=== PATIENT | male | born 1960 | race Caucasian/White ===

== ENCOUNTER → 2020-11-12 13:07 | Outpatient (BNVA) | payer BC, SELFPAY | PROVIDERS: PCP Nurse Practitioner Family; Referring Provider Nurse Practitioner Family; Visit Provider Urology | DX: Z76.89 Persons encountering health services in other specified circumstances (principal) ==

== ENCOUNTER 2020-11-13 09:05 | Outpatient (REF) | payer BC, SELFPAY ==
[2020-11-13 11:31] LABS: Estimated Average Glucose 123 mg/dL; Hemoglobin A1c % 5.9 %
[2020-11-13 11:53] LABS: Alanine Aminotransferase 40 U/L (0-40); Albumin Level 4.9 g/dL (3.5-5.0); Alkaline Phosphatase 72 U/L (39-117); Anion Gap 13 (12-20); Aspartate Amino Transferase 20 U/L (5-37); Bilirubin Total 0.9 mg/dL (0.0-1.0); Blood Urea Nitrogen 15 mg/dL (9-16); Calcium 9.1 mg/dL (8.4-10.2); Carbon Dioxide 28 mmol/L (22-29); Chloride 102 mmol/L (96-108); Cholesterol 154 mg/dL; Estimated Glomerular Filt Rate > 60; Glucose Fasting 122 mg/dL (60-99); HDL Cholesterol 50 mg/dL; LDL Cholesterol Calculated 80 mg/dl; Sodium 139 mmol/L (135-145); Total Protein 7.2 g/dL (6.5-8.0); Triglycerides 123 mg/dL
[2020-11-13 12:18] LABS: Prostate Specific Antigen Scr 0.45 ng/mL (<0.05-4.0); TSH reflex Free T4 1.22 mIU/mL (0.32-4.0)
[2020-11-13 13:04] LABS: Creatinine Urine 87.48 mg/dL; Microalbum/Creatinine Ratio Ur 27.4 ug/mg cr
== END 2020-11-13 09:06 | disposition home or self-care (01) ==
LOC: HO.HMGCLDS 09:05
PROVIDERS: PCP Nurse Practitioner Family; Visit Provider Nurse Practitioner Family
DX: E11.9 Type 2 diabetes mellitus without complications (principal); Z12.5 Encounter for screening for malignant neoplasm of prostate
CPT/HCPCS: 36415; 80053; 80061; 82043; 83036; 84153; 84443

== ENCOUNTER 2020-11-27 14:28 | Outpatient (REF) | payer BC, SELFPAY ==
[2020-11-27 15:17] LABS: Glucose Urine UA NEG (NEG); Leukocyte Esterase Urine NEG (NEG); Nitrite Urine NEG (NEG); Specific Gravity - Urine >= 1.030 (1.005-1.025); Urine Blood 3+ (NEG); Urine Ketones NEG (NEG); Urine Protein 2+ MG/DL (NEG-TRACE)
[2020-11-27 15:30] LABS: Amorphous Sediment Urine 3+ /LPF; Bacteria Urine TRACE /LPF; Mucus Urine TRACE /LPF; RBC Urine TNTC /HPF (0); Squamous Epithelial Cell Urine TRACE /LPF; WBC Urine 0-2 /HPF (0-4)
[2020-11-27 15:31] LABS: Appearance Urine TURBID; Color Urine BROWN
== END 2020-11-27 14:29 | disposition home or self-care (01) ==
LOC: HO.LAB 14:28
PROVIDERS: PCP Nurse Practitioner Family; Visit Provider Urology
DX: N20.0 Calculus of kidney (principal)
CPT/HCPCS: 81001; 87086

== ENCOUNTER 2020-12-02 13:59 | Outpatient (REF) | payer BC, SELFPAY ==
--- NOTE | 2020-12-02 14:05 | XR_ITS ---
EXAMINATION: XR ABDOMEN KUB CLINICAL INDICATION: Left-sided flank pain COMPARISON: Previous CT of the abdomen and pelvis December 2017 TECHNIQUE: AP view of the abdomen. FINDINGS: There is a 5 mm density projecting over the lower pole of the left kidney questionable for a stone. There is a 6 x 8 mm density projecting to the left of the spine at the level of the L3 transverse process on one view and the level of the S3 vertebral body on the other view questionable for a left ureteral stone. No right-sided stone is seen. Bowel gas pattern is normal. There are mild degenerative changes of the spine and left hip joint. XR/XR KUB IMPRESSION: Question left renal and left ureteral stones.
== END 2020-12-02 14:00 | disposition home or self-care (01) ==
LOC: HO.XRAY 13:59
PROVIDERS: PCP Nurse Practitioner Family; Visit Provider Urology
DX: N23 Unspecified renal colic (principal)
CPT/HCPCS: 74018

== ENCOUNTER → 2020-12-06 13:28 | Outpatient (BNVA) | payer BC, SELFPAY | PROVIDERS: PCP Nurse Practitioner Family; Visit Provider Urology ==

== ENCOUNTER 2020-12-18 07:52 | Day surgery (SDC) | payer BC, SELFPAY ==
[2020-12-12 10:42] VITALS: BMI 26.6
--- NOTE | 2020-12-17 12:23 | HO.ANESPROP2 ---
Documented by User: Niki Irene 12/17/20 12:26 HPI - Anesthesia Eval Consult details Narrative: 60yo M for L ESWL PMFSH Active Problems Active Problems: All Active Problems (Updated 11/12/20 @ 13:51 by Raimundo Goodwin MD) Diabetes (Acute) Screening PSA (prostate specific antigen) (Acute) HTN (hypertension) (Acute) Nephrolithiasis (Acute) Peyronie's disease (Acute) Erectile dysfunction (Acute) Past Medical History Medical History Constipation Diabetes Dupuytren contracture Dyslipidemia Kidney stones Family History Family History Father HTN (hypertension) CVD (cardiovascular disease) Mother HTN (hypertension) Diabetes mellitus Paternal Grandmother Diabetes mellitus Brother No problems noted. Sister No problems noted. Sister No problems noted. Son No problems noted. Daughter No problems noted. Daughter No problems noted. Surgical History Surgical History H/O colonoscopy History of facial surgery Social History Social History Smoking Status: Unknown if ever smoked Advance Directives: Yes Advance Directives Information Provided: No Advance Directives on File: Yes Advance Directives Date on File: 12/18/20 Meds Allergies Allergy/AdvReac Type Severity Reaction Status Date / Time Penicillins Allergy Unknown Unknown Verified 12/18/20 08:52 Home Medications Medication Instructions Recorded Confirmed Last Taken Type blood sugar diagnostic #10 ea 11/11/20 11/11/20 Unknown History lancets #100 ea 11/11/20 11/11/20 Unknown History dulaglutide 1.5 mg/0.5 mL 1.5 mg SUBCUT QWEEK 11/12/20 Unknown History subcutaneous pen injector Exam Exam Date and Time: December 17, 2020 1223 Height,Weight and Vital Signs: Height 6 ft 2 in Weight 94.347 kg Pertinent Lab Results Pertinent Lab Results: Laboratory Tests 11/13/20 09:14 Sodium 139 Potassium 4.0 Chloride 102 Carbon Dioxide 28 BUN 15 Creatinine 1.02 Assessment and Plan Assessment Anesthesia Assessment: Chart Reviewed Documented by User: Shirin Theodore 12/18/20 10:34 PMFSH Past Medical History Medical History Constipation Diabetes Dupuytren contracture Dyslipidemia Kidney stones Family History Family History Father HTN (hypertension) CVD (cardiovascular disease) Mother HTN (hypertension) Diabetes mellitus Paternal Grandmother Diabetes mellitus Brother No problems noted. Sister No problems noted. Sister No problems noted. Son No problems noted. Daughter No problems noted. Daughter No problems noted. Surgical History Surgical History H/O colonoscopy History of facial surgery Social History Social History Smoking Status: Unknown if ever smoked Advance Directives: Yes Advance Directives Information Provided: No Advance Directives on File: Yes Advance Directives Date on File: 12/18/20 Meds Allergies Allergy/AdvReac Type Severity Reaction Status Date / Time Penicillins Allergy Unknown Unknown Verified 12/18/20 08:52 Home Medications Medication Instructions Recorded Confirmed Last Taken Type blood sugar diagnostic #10 ea 11/11/20 11/11/20 Unknown History lancets #100 ea 11/11/20 11/11/20 Unknown History dulaglutide 1.5 mg/0.5 mL 1.5 mg SUBCUT QWEEK 11/12/20 Unknown History subcutaneous pen injector Exam Airway Mallampati Class: II TM Dist: >3cm Neck ROM: Full Assessment and Plan Assessment Anesthesia Assessment: Anesthesia Plan Discussed and Chart Reviewed Final Anesthetic Review ASA Class: II Final Preanesthetic Review: No Changes in Pt Med Stat, Meds/Allgs Chart Reviewed, Consent Obtained/Reviewed and Anes Risks/Benef Reviewed Patient Risk: Low Procedure Risk: Low Assessment/Block/Sedation in SS: Assess/Block/Sedation-SS Anesthetic Plan Anesthetic Plan: MAC: Disposition: Standard PACU
--- NOTE | ~2020-12-18 | XR_ITS ---
EXAMINATION: XR ABDOMEN KUB CLINICAL INDICATION: Renal stones COMPARISON: Previous KUB 12/02/[address] of the abdomen and pelvis December 2017 TECHNIQUE: AP view of the abdomen. FINDINGS: There is a 5 mm density projecting over the mid pole the left kidney questionable for a stone. There is a 6 x 8 mm radiopaque density projecting between the L2 and L3 transverse processes questionable for a ureteral stone. There is a third new calcification in the left pelvis just superior to the left ischiorectal spine measuring 5 x 10 mm questionable for a left distal ureteral stone. No right-sided stone is seen. Bowel gas pattern is normal. Bony structures are normal. XR/XR KUB IMPRESSION: Question left renal and ureteral stones.
[2020-12-18 09:02] VITALS: BP 136/84; PULSE 84; RESP 15; TEMP 36.5; O2SAT 98
[2020-12-18] MEDS: Lactated Ringers 1,000 ML 100 ML IVCONT (09:12)
[2020-12-18 09:17] LABS: Glucose, Whole Blood 129 mg/dL (60-115)
--- NOTE | 2020-12-18 10:22 | MHC.SHP ---
Pre-Procedural Eval Section A The patient is an INPATIENT: No Changes since office visit: No Cold of Flu in the past 2 weeks, No New Medical Problems, No Changes in Medication and No Patient answered all questions The History & Physical has been completed within 30 days and I have reviewed it.: Yes Section B Chief Complaint: kidney stone Allergies: Allergies Allergy/AdvReac Type Severity Reaction Status Date / Time Penicillins Allergy Unknown Unknown Verified 12/18/20 08:52 Plan Diagnosis/Plan: Unchanged I have reviewed the history and physical and performed a pertinent physical examination on my patient. No changes have occurred unless specified. Left ESWL 8mm
--- NOTE | 2020-12-18 10:32 | PM.OP ---
Brief Operative Note Date of Service: 12/18/20 Pre-op diagnosis: left 8mm stone renal Post-op diagnosis: same Procedure: left eswl Surgeon: Raimundo Goodwin MD Estimated blood loss (mL): 0 Pathology: none sent Condition: stable Disposition: same day
--- NOTE | 2020-12-18 10:43 | PM.OP ---
Brief Operative Note Date of Service: 12/18/20 Pre-op diagnosis: Left renal stones Post-op diagnosis: same Procedure: left ESWL Surgeon: Raimundo Goodwin MD Anesthesia: MAC Estimated blood loss (mL): 0 Pathology: none sent Condition: stable Disposition: same day
--- NOTE | 2020-12-18 10:46 | W.PM.OPN ---
Operative Note Operative Note Date of Service: 12/18/20 Narrative: PreOperative Diagnosis: left stones Post Operative Diagnosis: left Renal stones 8mm Procedure: left ESWL Surgeon: Dr Raimundo Goodwin Anesthesia: mac/sedation Indications for procedure: They understand ESWL may be a staged procedure and subsequent intervention may be required based on imaging after ESWL. They also understand there is a risk of bleeding, infection, damage to adjacent organs. Procedure: After informed consent was verified the patient was brought to the operating room and placed in a supine position. Anesthesia was performed per protocol. Safety pause time-out was performed. Imaging was in the room and laterality confirmed. ESWL was performed. The 1st 500 shocks were performed at 60 hertz. These were performed with increasing power. Once maximum power was reached the rate was increased to 180 hertz. A total of 2500 shocks were given. Fluoroscopy showed stone disintegration. They tolerated procedure well and was transferred to the recovery area upon completion.
[2020-12-18 10:55] VITALS: BP 130/78; PULSE 78; RESP 16; TEMP 36.3; O2SAT 97
[2020-12-18 11:10] VITALS: BP 124/82; PULSE 71; RESP 18; O2SAT 98
[2020-12-18] MEDS: Phenazopyridine HCL 100 MG TABLET PO (11:17)
[2020-12-18 11:25] VITALS: BP 138/84; PULSE 71; RESP 16; O2SAT 100
[2020-12-18 11:40] VITALS: BP 132/93; PULSE 77; RESP 16; O2SAT 100
[2020-12-18 11:55] VITALS: BP 169/98; PULSE 57; RESP 16; O2SAT 100
== END 2020-12-18 12:40 | disposition home or self-care (01) ==
PROVIDERS: PCP Nurse Practitioner Family; Visit Provider Urology
PROC: (CPT 50590; principal; 2020-12-18 10:20)
DX: N20.0 Calculus of kidney (principal); Z87.442 Personal history of urinary calculi; E11.9 Type 2 diabetes mellitus without complications; Z79.84 Long term (current) use of oral hypoglycemic drugs; I10 Essential (primary) hypertension; Z79.899 Other long term (current) drug therapy; Z88.0 Allergy status to penicillin
CPT/HCPCS: 50590; 74018; 82947; J1885; J2405; J3010

== ENCOUNTER 2021-01-15 14:26 | Outpatient (REF) | payer BC, SELFPAY ==
--- NOTE | ~2021-01-15 | US_ITS ---
EXAMINATION: US RETROPERITONEAL LIMITED (RENAL ONLY) CLINICAL INFORMATION: Calculus of kidney. COMPARISON: X-ray KUB 12/18/2020 and 12/02/2020. CT abdomen pelvis 12/07/2017. Ultrasound abdomen 04/08/2007. TECHNIQUE: Real-time imaging of the kidneys. FINDINGS: RIGHT KIDNEY: 12.9 x 7.0 x 5.2 cm (SAG x AP x TRV). The kidney is normal in size, contour, and echogenicity. Renal cortical thickness is normal. There is anechoic cyst upper pole measuring 2.3 x 2.1 x 2.0 cm. There is an echogenic stone in the upper pole measuring 0.6 x 0.5 x 0.8 cm adjacent to the cyst. In addition there are multiple echogenic foci seen. There is no caliectasis or hydronephrosis. LEFT KIDNEY: 12.3 x 6.2 x 6.2 cm (SAG x AP x TRV). The kidney is normal in size, contour, and echogenicity. Renal cortical thickness is normal. There are several anechoic cysts seen. Midpole cyst laterally measures 0.6 was 0.9 x 0.9 cm. In midpole peripelvic cyst measures 2.8 x 2.4 x 2.3 cm. There is an echogenic stone mid to lower pole measuring 0.5 x 0.4 x 0.5 cm. There are multiple small echogenic foci. There is no caliectasis or hydronephrosis. US/US renal BI IMPRESSION: Multiple small bilateral renal echogenic foci. Addition there are bilateral echogenic renal calculi without caliectasis or hydronephrosis. Bilateral simple renal cysts.
== END 2021-01-15 14:27 | disposition home or self-care (01) ==
LOC: HO.US 14:26
PROVIDERS: Visit Provider Urology
DX: N20.0 Calculus of kidney (principal)
CPT/HCPCS: 76775

== ENCOUNTER → 2021-01-17 13:44 | Outpatient (BNVA) | payer BC, SELFPAY | PROVIDERS: PCP Nurse Practitioner Family; Visit Provider Urology ==

== ENCOUNTER 2021-03-24 07:17 | Day surgery (SDC) | payer BC, SELFPAY ==
[2021-03-17 15:34] VITALS: BMI 25.2
--- NOTE | 2021-03-20 11:23 | HO.ANESPROP2 ---
Documented by User: Niki Irene 03/20/21 11:23 HPI - Anesthesia Eval Consult details Narrative: 60yo M for Upper Endoscopy and Colonoscopy PMF Active Problems Active Problems: All Active Problems (Updated 03/17/21 @ 15:35 by Sherice Castro) Diabetes (Acute) Screening PSA (prostate specific antigen) (Acute) HTN (hypertension) (Acute) Nephrolithiasis (Acute) Peyronie's disease (Acute) Erectile dysfunction (Acute) Past Medical History Medical History Arthritis Constipation COVID-19 vaccine series completed Diabetes Dupuytren contracture Dyslipidemia GERD (gastroesophageal reflux disease) Kidney stones Family History Family History Father HTN (hypertension) CVD (cardiovascular disease) Mother HTN (hypertension) Diabetes mellitus Paternal Grandmother Diabetes mellitus Brother No problems noted. Sister No problems noted. Sister No problems noted. Son No problems noted. Daughter No problems noted. Daughter No problems noted. Surgical History Surgical History H/O colonoscopy History of facial surgery History of lithotripsy Social History Social History Smoking Status: Never smoker Use of substances other than those prescribed or required for medical reasons: No Are you DNR?: No Advance Directives: Yes Advance Directives Information Provided: Yes Advance Directives on File: Yes Advance Directives Date on File: 12/18/20 Meds Allergies Allergy/AdvReac Type Severity Reaction Status Date / Time Penicillins Allergy Unknown Unknown Verified 03/17/21 15:32 Home Medications Medication Instructions Recorded Confirmed Last Taken Type blood sugar diagnostic #10 ea 11/11/20 02/13/21 Unknown History lancets #100 ea 11/11/20 02/13/21 Unknown History Exam Exam Date and Time: March 20, 2021 1123 Height,Weight and Vital Signs: Height 6 ft 2 in Weight 89.358 kg Assessment and Plan Assessment Anesthesia Assessment: Chart Reviewed Documented by User: Porter Anderson 03/24/21 07:59 PMFSH Past Medical History Medical History Arthritis Constipation COVID-19 vaccine series completed Diabetes Dupuytren contracture Dyslipidemia GERD (gastroesophageal reflux disease) Kidney stones Family History Family History Father HTN (hypertension) CVD (cardiovascular disease) Mother HTN (hypertension) Diabetes mellitus Paternal Grandmother Diabetes mellitus Brother No problems noted. Sister No problems noted. Sister No problems noted. Son No problems noted. Daughter No problems noted. Daughter No problems noted. Surgical History Surgical History H/O colonoscopy History of facial surgery History of lithotripsy Social History Social History Smoking Status: Never smoker Use of substances other than those prescribed or required for medical reasons: No Are you DNR?: No Advance Directives: Yes Advance Directives Information Provided: Yes Advance Directives on File: Yes Advance Directives Date on File: 12/18/20 Meds Allergies Allergy/AdvReac Type Severity Reaction Status Date / Time Penicillins Allergy Unknown Unknown Verified 03/17/21 15:32 Home Medications Medication Instructions Recorded Confirmed Last Taken Type blood sugar diagnostic #10 ea 11/11/20 02/13/21 Unknown History lancets #100 ea 11/11/20 02/13/21 Unknown History Exam Airway Mallampati Class: II TM Dist: >3cm Neck ROM: Full
[2021-03-24 07:56] VITALS: BP 142/91; PULSE 76; RESP 18; TEMP 36.2; O2SAT 98
[2021-03-24 07:58] LABS: Glucose, Whole Blood 116 mg/dL (60-115)
[2021-03-24] MEDS: Lactated Ringers 1,000 ML 100 ML IVCONT (08:13)
[2021-03-24 09:38] VITALS: BP 107/69; PULSE 65; RESP 16; TEMP 36.3; O2SAT 98
--- NOTE | 2021-03-24 09:43 | P.BOP_ITS ---
Brief Operative Note Date of Service: 03/24/21 Pre-op diagnosis: GERD, Screening Post-op diagnosis: other (Hiatal hernia, Colon polyp) Procedure: EGD with biopsy, Colonoscopy to the cecum and TI with biopsy and removal of polyp Surgeon: Eron Bragg Anesthesia: MAC Was an Asphalt Surface Heater Operator used for this Procedure?: No Estimated blood loss (mL): 3.0 Pathology: other (A. EG Junction at 35cm B. Transverse colon polyp) Condition: stable Disposition: PACU
[2021-03-24 09:53] VITALS: BP 147/85; PULSE 69; RESP 16; TEMP 36.3; O2SAT 99
--- NOTE | 2021-03-24 13:08 | OP_ITS ---
SURGEON: Eron Bragg MD INDICATIONS: The patient presents for evaluation of chronic gastroesophageal reflux, personal history of tubular adenoma of the colon, and need for colorectal cancer screening. Full consent has been obtained from him for both procedures, including risks of bleeding and perforation. PREOPERATIVE DIAGNOSIS: POSTOPERATIVE DIAGNOSIS: PROCEDURE PERFORMED: Esophagogastroduodenoscopy with biopsies, and colonoscopy to the cecum and terminal ileum with biopsy and removal of polyp. ESTIMATED BLOOD LOSS: COMPLICATIONS: ANESTHESIA: Monitored anesthesia care. ASSISTANTS: SPECIMENS: PREOPERATIVE DIAGNOSES: Gastroesophageal reflux, personal history of tubular adenoma of the colon, and colorectal cancer screening. POSTOPERATIVE DIAGNOSES: Gastroesophageal reflux, personal history of tubular adenoma of the colon, and colorectal cancer screening, small hiatal hernia, small colon polyp, diverticulosis and internal hemorrhoids. DESCRIPTION OF PROCEDURE: The patient was placed in the left lateral decubitus position. The Olympus video gastroscope was passed in the posterior oropharynx and upper esophagus under direct vision. The scope was passed slowly into the distal esophagus. The gastroesophageal junction appeared at 35 cm. There was some very minimal irregularity consistent with reflux, but no evidence of any esophagitis nor Hernández's esophagus. The scope entered into the stomach. There was a small hiatal hernia. The scope was advanced to pylorus and the duodenum was cannulated to the descending portion. The duodenum including the bulb appeared normal without mass or ulceration. Scope was withdrawn back in the stomach. The gastric antrum and body appeared normal with good peristalsis. The scope was retroflexed visualizing the proximal stomach carefully, which appeared normal, without any sign of mass or ulceration. The scope was straightened out and withdrawn back into the esophagus. Biopsies were obtained at the EG junction at 35 cm. Proximal to this, the esophageal mucosa appeared normal. The scope was withdrawn from the patient. He was turned around for colonoscopy. The digital rectal exam revealed no abnormalities. The Olympus video pediatric colonoscope was entered into the rectum and advanced easily to the cecum. Once in the cecum, I did identify normal-appearing cecal pouch with appendiceal orifice and a normal-appearing ileocecal valve. The terminal ileum was cannulated and appeared normal. Scope was withdrawn back in the colon. The entire cecum and ileocecal valve appeared normal. The scope was slowly withdrawn assessing all mucosal surfaces carefully. Preparation was excellent. In the transverse colon, was a flat approximately 3 or 4 mm polyp, which was biopsied and completely removed with cold biopsy forceps. I did not visualize any other polyps, colitis, nor angiodysplasia. There was a mild amount of sigmoid diverticulosis. In the rectum, scope was retroflexed visualizing small internal hemorrhoids, but no other pathology. The rectal mucosa appeared normal. Scope was straightened out and withdrawn from the patient. He tolerated the procedure well and was returned to the recovery area in stable condition. IMPRESSION: 1. Small hiatal hernia, gastroesophageal reflux. 2. Small colon polyp, status post biopsy and removal. 3. Mild diverticulosis. 4. Internal hemorrhoids. PLAN: The results of the biopsy will be checked. I would recommend a repeat colonoscopy in 5 years for further screening purposes. He was advised to continue to use Prevacid on a p.r.n. basis. He will otherwise see me on a p.r.n. basis. Of note, he was advised to continue some bowel regimen with fiber supplements and/or stool softeners as needed. MD UZAIR Mayer/CHANDNI / [id number]
== END 2021-03-24 10:28 | disposition home or self-care (01) ==
PROVIDERS: PCP Nurse Practitioner Family; Visit Provider Internal Medicine
PROC: (CPT 45380; principal; 2021-03-24 08:20)
DX: Z12.11 Encounter for screening for malignant neoplasm of colon (principal); Z86.010 Personal history of colon polyps; D12.3 Benign neoplasm of transverse colon; K57.30 Diverticulosis of large intestine without perforation or abscess without bleeding; K64.8 Other hemorrhoids; K59.00 Constipation, unspecified; K21.9 Gastro-esophageal reflux disease without esophagitis; K44.9 Diaphragmatic hernia without obstruction or gangrene; E11.9 Type 2 diabetes mellitus without complications; Z79.84 Long term (current) use of oral hypoglycemic drugs; Z79.899 Other long term (current) drug therapy; Z88.0 Allergy status to penicillin
CPT/HCPCS: 45380; 43239; 82947; 88305; J3010

== ENCOUNTER → 2021-04-09 07:58 | Outpatient (BNVA) | payer BC, SELFPAY | PROVIDERS: PCP Nurse Practitioner Family; Visit Provider Orthopaedic Surgery ==

== ENCOUNTER 2021-05-13 08:11 | Outpatient (REF) | payer BC, SELFPAY ==
[2021-05-13 09:25] LABS: Estimated Average Glucose 120 mg/dL; Hemoglobin A1c % 5.8 %
[2021-05-13 09:28] LABS: Alanine Aminotransferase 26 U/L (0-40); Albumin Level 4.4 g/dL (3.5-5.0); Alkaline Phosphatase 59 U/L (39-117); Anion Gap 12 (12-20); Aspartate Amino Transferase 18 U/L (5-37); Blood Urea Nitrogen 20 mg/dL (9-16); Calcium 9.2 mg/dL (8.4-10.2); Carbon Dioxide 27 mmol/L (22-29); Chloride 105 mmol/L (96-108); Cholesterol 134 mg/dL; Estimated Glomerular Filt Rate 59; Glucose Fasting 120 mg/dL (60-99); HDL Cholesterol 42 mg/dL; LDL Cholesterol Calculated 74 mg/dl; Potassium 4.5 mmol/L (3.3-5.1); Sodium 139 mmol/L (135-145); Total Protein 6.7 g/dL (6.5-8.0); Triglycerides 93 mg/dL
[2021-05-13 09:51] LABS: TSH reflex Free T4 1.13 uIU/mL (0.32-4.0)
== END 2021-05-13 08:12 | disposition home or self-care (01) ==
LOC: HO.LAB 08:11
PROVIDERS: PCP Nurse Practitioner Family; Visit Provider Nurse Practitioner Family
DX: E11.9 Type 2 diabetes mellitus without complications (principal)
CPT/HCPCS: 36415; 80053; 80061; 83036; 84443

== ENCOUNTER 2021-05-21 09:57 | Outpatient (REF) | payer BC, SELFPAY ==
[2021-05-21 11:17] LABS: Glucose Urine UA NEG (NEG); Leukocyte Esterase Urine NEG (NEG); Nitrite Urine NEG (NEG); PH 5.5 (5.0-8.0); Specific Gravity - Urine 1.015 (1.005-1.025); Urine Blood NEG (NEG); Urine Ketones NEG (NEG); Urine Protein NEG (NEG-TRACE)
[2021-05-21 11:47] LABS: Appearance Urine HAZY; Color Urine YELLOW
[2021-05-21 11:50] LABS: Prostate Specific Antigen Scr 0.47 ng/mL (<0.05-4.0)
[2021-05-21 11:52] LABS: Creatinine Urine 87.11 mg/dL; Microalbum/Creatinine Ratio Ur 10.3 ug/mg cr
[2021-05-21 11:53] LABS: RBC Urine 0 /HPF (0); Squamous Epithelial Cell Urine TRACE /LPF; WBC Urine 0-2 /HPF (0-4)
== END 2021-05-21 09:58 | disposition home or self-care (01) ==
LOC: HO.HMGCLDS 09:57
PROVIDERS: Urology; PCP Nurse Practitioner Family; Visit Provider Nurse Practitioner Family
DX: Z12.5 Encounter for screening for malignant neoplasm of prostate (principal); N20.0 Calculus of kidney; E11.9 Type 2 diabetes mellitus without complications
CPT/HCPCS: 36415; 81001; 82043; 84153

== ENCOUNTER 2021-06-23 08:48 | Outpatient (REF) | payer BC, SELFPAY ==
--- NOTE | ~2021-06-23 | US_ITS ---
EXAMINATION: US RETROPERITONEAL LIMITED (RENAL ONLY) CLINICAL INFORMATION: Calculus of kidney. COMPARISON: Lateral renal ultrasound dated 01/15/2021. KUBs dated 12/18/2020 and 12/02/2020. CT abdomen and pelvis with contrast dated 12/07/2017. MR abdomen without contrast dated 04/11/2007. Ultrasound abdomen complete dated 04/08/2007. TECHNIQUE: Real-time imaging of the kidneys. FINDINGS: RIGHT KIDNEY: 12.2 x 4.8 x 7.0 cm (SAG x AP x TRV). The kidney is normal in size, contour, and echogenicity. Renal cortical thickness is normal. No renal calculi or hydronephrosis. At the upper pole, a 1.7 x 2.4 x 2.2 cm mildly complex (Bosniak 2) cyst is seen, with wall calcification. This shows no septation, mural nodularity or associated color Doppler flow. On the ultrasound examination of 01/15/2021, this measured 2.3 x 2.1 x 2.0 cm. LEFT KIDNEY: 11.8 x 6.9 x 5.8 cm (SAG x AP x TRV). The kidney is normal in size, contour, and echogenicity. Renal cortical thickness is normal. No renal calculi or hydronephrosis. At the interpolar aspect, 2.9 cm and 0.9 cm maximal diameter simple cysts are seen. US/US renal BI IMPRESSION: Bilateral renal cysts are seen, including a stable mildly complex (Bosniak 2) right renal upper pole cyst with wall calcification.
== END 2021-06-23 08:49 | disposition home or self-care (01) ==
LOC: HO.US 08:48
PROVIDERS: PCP Nurse Practitioner Family; Visit Provider Nurse Practitioner Family
DX: R10.9 Unspecified abdominal pain (principal); N20.0 Calculus of kidney
CPT/HCPCS: 76775

== ENCOUNTER 2021-08-18 11:46 | Outpatient (REF) | payer BC, SELFPAY | END 2021-08-18 11:47 | disposition home or self-care (01) | LOC: HO.LAB 11:46 | PROVIDERS: Visit Provider Hospitalist | DX: J06.9 Acute upper respiratory infection, unspecified (principal); Z20.822 Contact with and (suspected) exposure to COVID-19 | CPT/HCPCS: U0003; U0005 ==

== ENCOUNTER → 2021-09-18 10:43 | Outpatient (BNVA) | payer BC, SELFPAY | PROVIDERS: PCP Nurse Practitioner Family; Visit Provider Urology ==

== ENCOUNTER 2022-02-11 09:37 | Outpatient (REF) | payer BC, SELFPAY ==
--- NOTE | ~2022-02-11 | US_ITS ---
EXAMINATION: US RETROPERITONEAL LIMITED (RENAL ONLY) CLINICAL INFORMATION: Calculus of kidney. COMPARISON: Renal ultrasound 06/23/2021 and 01/15/2021. X-ray abdomen KUB 12/18/2020. CT abdomen and pelvis 12/07/2017. MRI abdomen 04/11/2007. TECHNIQUE: Real-time imaging of the kidneys. FINDINGS: RIGHT KIDNEY: 12.8 x 7.1 x 5.4 cm (SAG x AP x TRV). The kidney is normal in size, contour, and echogenicity. Renal cortical thickness is normal. No renal calculi or hydronephrosis. There is an anechoic cyst measuring 2.5 x 1.9 x 2.0 cm and peripheral calcification suggestive of Bosniak type II. LEFT KIDNEY: 12.1 x 6.9 x 4.6 cm (SAG x AP x TRV). The kidney is normal in size, contour, and echogenicity. Renal cortical thickness is normal. No hydronephrosis. There is an anechoic cyst in the midpole measuring 3.1 x 2.9 x 2.4 cm and 1.1 x 1.0 x 0.9 cm. There is an echogenic nonobstructive stone measuring 5.3 mm. No caliectasis seen. US/US renal BI IMPRESSION: 1. Complex Bosniak type II cyst right kidney. 2. Simple cysts left kidney. Nonobstructive echogenic stone in midpole. No caliectasis or hydronephrosis.
== END 2022-02-11 09:38 | disposition home or self-care (01) ==
LOC: HO.US 09:37
PROVIDERS: PCP Nurse Practitioner Family; Visit Provider Urology
DX: N20.0 Calculus of kidney (principal)
CPT/HCPCS: 76775

== ENCOUNTER → 2022-03-27 14:40 | Outpatient (BNVA) | payer BC, SELFPAY | PROVIDERS: PCP Nurse Practitioner Family; Visit Provider Urology | DX: N48.6 Induration penis plastica (principal) ==

== ENCOUNTER 2022-06-30 09:34 | Outpatient (REF) | payer BC, SELFPAY ==
[2022-06-30 09:47] LABS: MANUAL DIFF FLAG NO
[2022-06-30 10:40] LABS: Basophils Percent Auto 0.7 % (0-2); Eosinophils Absolute Auto 0.2 X10*3/uL (0.0-0.4); Eosinophils Percent Auto 2.8 % (0-4); Hematocrit 40.2 % (42.0-52.0); Hemoglobin 14.1 g/dl (14.0-18.0); Imm Gran Abs Auto 0.01 X10*3/uL (0.00-0.03); Imm Gran Pct Auto 0.2 % (0.0-0.4); Lymphocytes Absolute Auto 1.7 X10*3/uL (1.2-4.9); Lymphocytes Percent Auto 28.6 % (20-40); Mean Corpuscular HGB Conc 35.1 g/dl (31.0-36.0); Mean Corpuscular Hemoglobin 29.6 pg (27.0-33.0); Mean Corpuscular Volume 84.5 fL (80.0-98.0); Mean Platelet Volume 9.3 fL (9.4-12.4); Monocytes Absolute Auto 0.5 X10*3/uL (0.1-1.2); Monocytes Percent Auto 7.4 % (2-11); Neutrophils Absolute Auto 3.7 x10*3/uL (2.0-8.3); Neutrophils Percent Auto 60.3 % (45-73); Platelet Count 195 X10*3/uL (160-400); Red Blood Count 4.76 X10*6/uL (4.60-5.80); Red Cell Distribution Width 12.5 % (11.0-16.0); White Blood Count 6.1 X10*3/uL (4.8-10.8)
[2022-06-30 11:07] LABS: Creatinine Urine 124.21 mg/dL
[2022-06-30 11:09] LABS: Estimated Average Glucose 114 mg/dL; Hemoglobin A1c % 5.6 %
[2022-06-30 11:10] LABS: Appearance Urine Clear; Color Urine Yellow; Glucose Urine UA Negative (Negative); Leukocyte Esterase Urine Negative (Negative); Nitrite Urine Negative (Negative); PH 5.5 (5.0-8.0); Urine Blood Negative (Negative); Urine Ketones Negative (Negative); Urine Protein Negative (Neg-Trace)
[2022-06-30 11:24] LABS: Alanine Aminotransferase 26 U/L (0-40); Albumin Level 4.5 g/dL (3.5-5.0); Alkaline Phosphatase 64 U/L (39-117); Anion Gap 13 (12-20); Aspartate Amino Transferase 19 U/L (5-37); Bilirubin Total 1.1 mg/dL (0.0-1.0); Blood Urea Nitrogen 23 mg/dL (9-16); Calcium 9.5 mg/dL (8.4-10.2); Carbon Dioxide 27 mmol/L (22-29); Chloride 102 mmol/L (96-108); Cholesterol 148 mg/dL; Estimated Glomerular Filt Rate 58; Glucose Fasting 111 mg/dL (60-99); HDL Cholesterol 50 mg/dL; LDL Cholesterol Calculated 87 mg/dl; Potassium 4.2 mmol/L (3.3-5.1); Sodium 138 mmol/L (135-145); Total Protein 6.9 g/dL (6.5-8.0); Triglycerides 55 mg/dL
[2022-06-30 11:32] LABS: Prostate Specific Antigen Scr 0.46 ng/mL (<0.05-4.0)
== END 2022-06-30 09:35 | disposition home or self-care (01) ==
LOC: HO.LAB 09:34
PROVIDERS: PCP Nurse Practitioner Family; Visit Provider Nurse Practitioner Family
DX: Z00.00 Encounter for general adult medical examination without abnormal findings (principal); E11.9 Type 2 diabetes mellitus without complications; Z12.5 Encounter for screening for malignant neoplasm of prostate
CPT/HCPCS: 36415; 80053; 80061; 81003; 82043; 83036; 84153; 84443; 85025

== ENCOUNTER → 2022-07-09 12:57 | Outpatient (REF) | payer BC, SELFPAY ==
--- NOTE | 2022-07-09 13:00 | CA_ITS ---
Transthoracic Echocardiogram Patient (Last, First, Middle): Arnel Gómez R Gender: Male Date of : 1960 Age: 61 Procedure Date: 07/09/2022 Procedure Type: Transthoracic Echocardiogram Location: OP Height: 187.96 cm Weight: 87.54 kg BSA: 2.14 m2 Heart Rate: bpm BP: 118 / 83 mmHg Commercial Lease Administrator: BRIELLE Referring MD: Donis Gomez [facility] Blending Machine Feeder: Nathen Fuller MD Symptoms: R01.1 - Cardiac murmur, unspecified Study Quality: Adequate ECG Rhythm: Sinus with PVCs Conclusions: - 1. Normal LV systolic function with moderate asymmetric septal hypertrophy with grade 1 diastolic dysfunction 2. Mild aortic regurgitation 3. Mildly dilated ascending aorta at 3.9 cm 4. Normal RV systolic pressure 5. No pericardial effusion Findings Left Ventricle Normal left ventricular size, thickness, and systolic function. The visually estimated ejection fraction is between 60-65%. Spectral Doppler is indicative of an impaired relaxation filling pattern. E/E prime ratio is <8, consistent with normal filling pressures. Evidence suggests grade I (mild) diastolic dysfunction. There is moderate septal asymmetric hypertrophy. Right Ventricle Normal right ventricular cavity size and systolic function. Atria Both atria are normal in size. Interatrial shunt cannot be excluded. Aortic Valve The aortic valve structure and function is likely normal. There is no aortic valve stenosis. There is mild aortic valve regurgitation. Mitral Valve There is mild anterior mitral leaflet thickening. There is trace mitral valve regurgitation. There is no mitral valve stenosis. Pulmonic Valve The pulmonic valve was not well visualized. Tricuspid Valve Likely normal tricuspid valve structure and function. There is mild tricuspid valve regurgitation. The right ventricular systolic pressure is normal. The right ventricular systolic pressure is 31 mmHg. Normal right atrial pressure. There is no evidence of pulmonary hypertension. Great Vessels The pulmonary artery was not well visualized. There is mild dilatation of the ascending aorta measuring 3.90 cm. Venous The inferior vena cava is normal in size and collapses greater than 50% with inspiration. Pericardium/Pleural There is no evidence of pericardial effusion. Prior Study Comparison no previous study in the last 5 years for comparison Measurements 2D Linear Measurements IVSd: 1.18 0.6-0.9/0.6-1.0 cm LVIDd: 4.90 3.9-5.3/4.2-5.9 cm LVIDd Index: 2.29 2.4-3.2/2.2-3.1 cm/m2 LVIDs: 2.69 2.0-3.6 cm LVPWd: 1.13 0.7-1.1 cm LA Diam: 3.40 2.7-3.8/3.0-4.0 cm LAIDs Index: 1.59 1.5-2.3 cm/m2 LV Mass: 267.44 67-162/88-224 g LV Mass Index: 124.97 43-95/49-115 g/m2 LVOT Diam: 2.30 3.0+(-)1.3 cm 2D Systolic Function EF 4C: 66.80 >55% EF 2C: 64.40 >55% EF BiP: 65.50 >55% Mitral Valve MV Pk E: 0.67 MV PK A: 0.98 MV Decel Time: 224.00 E/A: 0.70 E'Lateral: 9.03 E'Medial: 5.87 E/E' Med: 11.40 E/E' Lat: 7.40 PHT: 66.00 MVA PHT: 3.33 Decel [place]: 2.99 Aortic Valve AoV Pk Mychal: 1.96 AoV Mn Mychal: 1.27 AoV VTI: 0.37 AoV Pk Grad: 15.00 Aov Mn Grad: 8.00 VANESSA Cont.VTI: 3.15 AI Pk Mychal: 4.36 AI [place]: 2.28 LVOT LVOT Pk Mychal: 1.40 LVOT Mn Mychal: 0.90 LVOT VTI: 0.28 LVOT Pk Grad: 8.00 LVOT Mn Grad: 4.00 LVOT Diam: 2.30 LVOT Area: 4.15 Diastolic Function MV Pk E: 0.67 MV Pk A: 0.98 E/A: 0.70 E'Medial: 5.87 E/E' Med: 11.40 E' Laterial: 9.03 E/E' Lat: 7.40 Right Ventricle TAPSE (mm): 2.35 TVS' Mychal: 12.00 Tricuspid Valve TR Pk Mychal: 2.39 TR Pk Grad: 23.00 RA Press: 8.00 RVSP: 31.00 Great Vessels Aorta Sinus of Valsalva: 3.70 2.0-3.[address] [place]: 2.97 1.7-3.4 cm Ao Asc: 3.90 2.1-3.4 cm Updated in Other Vendor System with Status of Final Nathen Fuller MD electronically signed on 07/09/2022 4:56:55 PM with status of Final
== END ==
LOC: HO.CARD 12:57
PROVIDERS: PCP Nurse Practitioner Family; Visit Provider Nurse Practitioner Family
DX: R01.1 Cardiac murmur, unspecified (principal)
CPT/HCPCS: 93306

== ENCOUNTER → 2022-07-30 10:45 | Outpatient (BNVA) | payer BC, SELFPAY | PROVIDERS: PCP Nurse Practitioner Family; Visit Provider Internal Medicine Cardiovascular Disease | DX: Z01.810 Encounter for preprocedural cardiovascular examination (principal); I35.1 Nonrheumatic aortic (valve) insufficiency | CPT/HCPCS: 93005 ==

== ENCOUNTER 2022-08-24 06:01 | Day surgery (SDC) | payer BC, SELFPAY ==
[2022-08-18 13:58] VITALS: BMI 24.7
--- NOTE | 2022-08-21 08:35 | P.CONAN_ITS ---
Documented by User: Niki Irene NP 08/21/22 08:37 HPI - Anesthesia Eval Consult details Narrative: 62yo M for Left Dupuytrens Contracture Release of hand and small finger Cardiac cleared PMFSH Active Problems Active Problems: All Active Problems (Updated 07/30/22 @ 11:24 by Conor Antonio MD) Mild aortic insufficiency (Acute) Preop cardiovascular exam (Acute) Systolic murmur (Acute) Physical exam (Acute) Erectile dysfunction associated with type 2 diabetes mellitus (Acute) Diabetes (Acute) Back pain (Acute) Viral URI (Acute) Dupuytren's contracture of right hand (Acute) Dupuytren's contracture of left hand (Acute) Diabetes (Acute) Screening PSA (prostate specific antigen) (Acute) HTN (hypertension) (Acute) Nephrolithiasis (Acute) Peyronie's disease (Acute) Past Medical History Medical History Arthritis Constipation COVID-19 vaccine series completed Degenerative disc disease, lumbar Diabetes Dupuytren contracture Dyslipidemia GERD (gastroesophageal reflux disease) Kidney stones Family History Family History Father HTN (hypertension) CVD (cardiovascular disease) Mother HTN (hypertension) Diabetes mellitus Paternal Grandmother Diabetes mellitus Brother No problems noted. Sister No problems noted. Sister No problems noted. Son No problems noted. Daughter No problems noted. Daughter No problems noted. Surgical History Surgical History H/O colonoscopy History of facial surgery History of lithotripsy Social History Social History Housing: House Are you a primary caregiver services home to a significant other at home: No Do you presently have visiting nurse or other home services: No Patient Tobacco Use Status: Never used Tobacco e-Cigarette/Vaping Use: Never Used Second Hand Smoke Exposure: No Have you been hit, kicked, punched, or otherwise hurt by someone within the past year? If so, by whom?: No Are you DNR?: No Advance Directives: Yes Advance Directives Information Provided: No Advance Directives on File: Yes Advance Directives Date on File: 12/18/20 Recently lost weight without trying: No Nutrition Risks: No Nutritional Risk Poor oral hygiene: No Current occupational status: retired Current occupation: right hand Cognitive needs: No Hearing needs: No Vision needs: No Meds Allergies Allergy/AdvReac Type Severity Reaction Status Date / Time Penicillins Allergy Unknown Unknown Verified 08/11/22 08:51 Home Medications Medication Instructions Recorded Confirmed Last Taken Type lancets #100 ea 11/11/20 07/30/22 Unknown History Exam Exam Date and Time: August 21, 2022 0835 Height,Weight and Vital Signs: Height 6 ft 2 in Weight 87.543 kg Pertinent Lab Results Pertinent Lab Results: Laboratory Tests 06/30/22 06/30/22 09:45 09:45 WBC 6.1 Hgb 14.1 Hct 40.2 L Plt Count 195 Sodium 138 Potassium 4.2 Chloride 102 Carbon Dioxide 27 BUN 23 H Creatinine 1.26 Narrative Narrative: EKG 07/2022 Sinus rhythm 70 beats per minute, normal EKG, QT interval 410 milliseconds ECHO 07/2022 Conclusions: - 1.? Normal LV systolic function with moderate asymmetric septal hypertrophy with grade 1 diastolic dysfunction ? 2.? Mild aortic regurgitation? 3.? Mildly dilated ascending aorta at 3.9 cm ? 4.? Normal RV systolic pressure? 5.? No pericardial effusion?? Assessment and Plan Assessment Anesthesia Assessment: Chart Reviewed Documented by User: Yoli Soto MD 08/24/22 07:41 PMF Past Medical History Medical History Arthritis Constipation COVID-19 vaccine series completed Degenerative disc disease, lumbar Diabetes Dupuytren contracture Dyslipidemia GERD (gastroesophageal reflux disease) Kidney stones Family History Family History Father HTN (hypertension) CVD (cardiovascular disease) Mother HTN (hypertension) Diabetes mellitus Paternal Grandmother Diabetes mellitus Brother No problems noted. Sister No problems noted. Sister No problems noted. Son No problems noted. Daughter No problems noted. Daughter No problems noted. Surgical History Surgical History H/O colonoscopy History of facial surgery History of lithotripsy History of Problems with Anesthesia: No Social History Social History Housing: House Are you a primary caregiver services home to a significant other at home: No Do you presently have visiting nurse or other home services: No Patient Tobacco Use Status: Never used Tobacco e-Cigarette/Vaping Use: Never Used Second Hand Smoke Exposure: No Have you been hit, kicked, punched, or otherwise hurt by someone within the past year? If so, by whom?: No Are you DNR?: No Advance Directives: Yes Advance Directives Information Provided: No Advance Directives on File: Yes Advance Directives Date on File: 12/18/20 Recently lost weight without trying: No Nutrition Risks: No Nutritional Risk Poor oral hygiene: No Current occupational status: retired Current occupation: right hand Cognitive needs: No Hearing needs: No Vision needs: No Meds Allergies Allergy/AdvReac Type Severity Reaction Status Date / Time Penicillins Allergy Unknown Unknown Verified 08/11/22 08:51 Home Medications Medication Instructions Recorded Confirmed Last Taken Type lancets #100 ea 11/11/20 07/30/22 Unknown History Exam Airway Mallampati Class: III TM Dist: >3cm Neck ROM: Full Loose/Missing/Broken Teeth: No Heart: RRR Lungs: CTA Assessment and Plan Assessment Anesthesia Assessment: Anesthesia Plan Discussed Final Anesthetic Review History of Problems with Anesthesia: No NPO: Yes ASA Class: II Final Preanesthetic Review: Meds/Allgs Chart Reviewed, Consent Obtained/Reviewed and Anes Risks/Benef Reviewed Patient Risk: Low Procedure Risk: Low Anesthetic Plan Anesthetic Plan: GA Disposition: Standard PACU
[2022-08-24] VITALS (12 sets, daily range): BP systolic 120–180; BP diastolic 68–89; PULSE 74–88; RESP 16; TEMP 36.1–36.5; O2SAT 94–98
[2022-08-24 06:29] LABS: Glucose, Whole Blood 126 mg/dL (60-115)
[2022-08-24] MEDS: Lactated Ringers 1,000 ML 100 ML IVCONT (06:34)
--- NOTE | 2022-08-24 07:55 | MHC.SHP ---
Pre-Procedural Eval Section A Date of Service: 08/24/22 The patient is an INPATIENT: No Changes since office visit: No Cold of Flu in the past 2 weeks, No New Medical Problems, No Changes in Medication and No Patient answered all questions The History & Physical has been completed within 30 days and I have reviewed it.: Yes Section B Chief Complaint: Palmar fascial fibromatosis [Dupuytren] Allergies: Allergies Allergy/AdvReac Type Severity Reaction Status Date / Time Penicillins Allergy Unknown Unknown Verified 08/11/22 08:51 Plan I have reviewed the history and physical and performed a pertinent physical examination on my patient. No changes have occurred unless specified.
--- NOTE | 2022-08-24 07:56 | P.OP_ITS ---
Operative Note Operative Note Date of Service: 08/24/22 Narrative: Preop diagnosis: 1. Left hand and small finger Dupuytren's contracture Postop diagnosis: Same Procedure: 1. left hand and small finger Partial Dupuytren's fasciectomy Surgeon: Padmaja Reyes MD Anesthesia: General anesthesia plus regional block Findings: Dupuytren's cord extending from mid palm to the distal aspect of the middle phalanx. At about the MCP joint the cord significantly thickened developing into a large cord and then extending distally as 3 different cords. Implants: None Tourniquet time: Sixty-five minutes EBL: 5.0 ml Specimen: left small finger Dupuytren's cord for histopathology Drains: None Complications: None Disposition: Brought to the recovery room in stable condition Plan: Follow-up in 10-14 days for wound check, suture removal and to check pathology OT appt on day of f/u to make a custom night spint and to begin OT Indications: The patient is a 62 year old man with left hand and small finger . The risks and benefits of operative treatment, including but not limited to risk of damage to blood vessels, nerves, tendons, infection, recurrence, persistent pain or numbness, incomplete resolution of preoperative symptoms, or need for further surgery were discussed with the patient and they wished to proceed with surgery. Procedure: Once consent was obtained patient was brought back to the operating suite and placed in the operating table in a supine position. A regional block was performed by the anesthesia team. Perioperative antibiotics and anesthesia was administered by the anesthesia team. A tourniquet was applied to the proximal aspect of the left upper extremity and the limb was prepped and draped in a standard surgical fashion. The limb was elevated exsanguinated with Esmarch bandage and the tourniquet inflated to 250 mm of mercury for a total tourniquet time of 65 minutes. I made a Angle type incision extending along the Dupuytren's cord from the mid palm to the DIP flexion crease of the left small finger. TheIncision was made with a 15. Blade through the skin the subcutaneous tissues. I then carefully dissected down to the level of the Dupuytren's cord beginning at the proximal aspect of the incision. This was done using tenotomy in iris scissors. Care was taken to protect the nearby neurovascular structures. The Dupuytren's cord was cut at its proximal aspect using tenotomy scissors. It was then grasped with an Allis clamp. TheDupuytren's cord was then carefully dissected free in a proximal to distal direction using tenotomy scissors and again taking care to protect the nearby neurovascular structures. At about the A1 skyler area I appreciated that the cord significantly thickened and really developed into 3 separate cords as it extended distally from this area care was taken to carefully dissect each of these cords from the surrounding soft tissues with attention being made 2 protecting the underlying neurovascular structures. The cords were then dissected from their attachments distally to the skin the middle phalanx, and the flexor tendon sheath, and the cord was removed from the patient. The cord was placed on the back table to be sent for histopathology.. At this point the tourniquet was deflated and hemostasis obtained with a brief period of local pressure . The wounds were copiously irrigated with normal saline. The skin edges were reapproximated with 4-0 And5-0 Prolene suture. The wounds were infiltrated with some 0.5% plain ropivacaine for postop pain control and a sterile dressing and volar splint holding the small and ring f ingers in extension was applied. The patient appears to have tolerated the procedure well and with no complications. All digits were well vascularized conclusion of the case
[2022-08-24] MEDS: ondansetron HCL 4 MG/2 ML VIAL IVPUSH (11:05)
== END 2022-08-24 13:29 | disposition home or self-care (01) ==
PROVIDERS: PCP Nurse Practitioner Family; Visit Provider Orthopaedic Surgery
PROC: (CPT 26045; principal; 2022-08-24 07:30)
DX: M72.0 Palmar fascial fibromatosis [Dupuytren] (principal); E11.9 Type 2 diabetes mellitus without complications; I10 Essential (primary) hypertension; E78.5 Hyperlipidemia, unspecified; I35.1 Nonrheumatic aortic (valve) insufficiency; Z79.84 Long term (current) use of oral hypoglycemic drugs; Z79.899 Other long term (current) drug therapy; Z88.0 Allergy status to penicillin
CPT/HCPCS: 26123; 82947; 88304; 88305; J0690; J1100; J2250; J2405; J2550; J2795; J3010

== ENCOUNTER 2022-09-02 13:58 | Outpatient (RCR) | payer BC, SELFPAY ==
--- NOTE | 2022-09-02 15:23 | MHC.OT.DC ---
[address] [phone] F: [phone] Occupational Therapy Discharge Note Provider: Padmaja Reyes Diagnosis: Left small finger s/p partial fasciectomy Date of Surgery: 08/24/22 Date of Evaluation: 09/12/22 Date of Discharge: 09/02/22 Treatments to Date: 2 Cancellations to Date: No Shows to Date: Discharge Status: Discharge Summary: Arnel is a 62 yo male now 8 days s/p left s/p partial fasciectomy . Some sutures were taken out today and he was instructed on self ROM techniques and protection of surgical wound this am. This afternoon he presents with gauze pads and coban wrap protecting small finger surgical wound . Right small finger extension to neutral at MCP, PIP and DIP joints. Digit stif]]f at PIP and DIP jt. Fabricated a hand base hand extension orthosis for night wear. Reviewed HEP and advised against aggressive exercise. Pt to follow up with Dr Reyes for suture removal next week. Pt is indepepent with self management of Dupuytrens release. Skilled OT is not needed at this time Electronically Signed By: Maryellen Lewis OT CHT CLT Reviewed/agree with student documentation: Therapist: Please Sign and return to therapist, thank you for your referral.
== END 2022-09-02 15:23 | disposition home or self-care (01) ==
LOC: HO.OT 13:58
PROVIDERS: Visit Provider Orthopaedic Surgery
DX: M72.0 Palmar fascial fibromatosis [Dupuytren] (principal)
CPT/HCPCS: 29130; 97165; 97760

== ENCOUNTER 2022-10-16 14:36 | Outpatient (REF) | payer BC, SELFPAY ==
--- NOTE | ~2022-10-16 | US_ITS ---
EXAMINATION: PENILE ULTRASOUND CLINICAL INFORMATION: Peyronie's disease. COMPARISON: No similar priors. TECHNIQUE: Targeted sonographic evaluation of the penis. US/US penile FINDINGS/IMPRESSION: No definite thickening of the tunica albuginea. No measurable lesion or collection. If symptoms persists and if clinically deemed appropriate, consider correlation with a MRI of the penis with and without IV contrast.
== END 2022-10-16 14:37 | disposition home or self-care (01) ==
LOC: HO.US 14:36
PROVIDERS: Visit Provider Urology
DX: N48.6 Induration penis plastica (principal)
CPT/HCPCS: 76857

== ENCOUNTER → 2022-11-06 14:42 | Outpatient (BNVA) | payer BC, SELFPAY | PROVIDERS: PCP Nurse Practitioner Family; Visit Provider Urology | DX: Z13.89 Encounter for screening for other disorder (principal) ==

== ENCOUNTER → 2023-02-10 13:12 | Outpatient (BNVA) | payer BC, SELFPAY | PROVIDERS: PCP Nurse Practitioner Family; Visit Provider Urology | DX: Z13.89 Encounter for screening for other disorder (principal) ==

== ENCOUNTER 2023-07-20 08:34 | Outpatient (AMB) | payer BC, SELFPAY ==
[2023-07-20 08:40] VITALS: BMI 25.5
--- NOTE | 2023-07-20 08:40 | A.OFFVIS_ITS ---
Intake Vital Signs 07/20/23 08:40 Height 6 ft 2 in Weight 199 lb BMI 25.5 Intake Visit Reasons: OV, Discuss Dup surgery R hand Intake Note: Arnel 62 yr old male presents today for his Pre op visit for his right hand SF partial dupuytren's contracture. Surgery consent signed and reviewed. Allergies Penicillins Allergy (Unknown, Verified 07/20/23 08:45) Unknown HPI OV, Discuss Dup surgery R hand HPI Details Arnel is a 62 year old right hand dominant man who presents S/P left hand and small finger Partial Dupuytren's fasciectomy, DOS: 08/24/22. He is doing well and denies any pain. He is happy with the results of his surgery, and is interested in having surgery for his right hand.. [facility] Medical History Arthritis Constipation COVID-19 vaccine series completed Degenerative disc disease, lumbar Diabetes Dupuytren contracture Dyslipidemia GERD (gastroesophageal reflux disease) Kidney stones Surgical History H/O colonoscopy History of facial surgery History of lithotripsy Family History Father HTN (hypertension) CVD (cardiovascular disease) Mother HTN (hypertension) Diabetes mellitus Paternal Grandmother Diabetes mellitus Brother No problems noted. Sister No problems noted. Sister No problems noted. Son No problems noted. Daughter No problems noted. Daughter No problems noted. Social History Housing: House Are you a primary post anesthesia care unit nurse to a significant other at home: No Do you presently have visiting nurse or other home services: No Patient Tobacco Use Status: Never used Tobacco e-Cigarette/Vaping Use: Never Used Second Hand Smoke Exposure: No Advance Directives Date on File: 12/18/20 Current occupational status: retired Current occupation: right hand Cognitive needs: No Hearing needs: No Vision needs: No Physical Exam Vital Signs: BMI result Body Mass Index 25.5 Extrem Other: The patient was alert oriented and in no acute distress. Regarding his left hand: All surgical incisions are well healed. He can make a fist and can actively extend all digits including the small finger and ring finger to full extension. Regarding his right hand: Dupuytren's cords, particularly to the small finger. There is an area of significant thickening over the A1 skyler area of the small finger. Right small finger 20? MCP/25? PIP Right ring finger 15 degree MCP/0 degree PIP Right middle finger 10? MCP He can make a tight fist. In both hands sensation is intact to all digits and cap refill is brisk. Assessment & Plan Assessment & Plan (1) Dupuytren's contracture of left hand: Code(s): M72.0 - Palmar fascial fibromatosis [Dupuytren] (2) Dupuytren's contracture of right hand: Code(s): M72.0 - Palmar fascial fibromatosis [Dupuytren] Plan Assessment and plan: 1. Right small finger Dupuytren's contracture: 20 degree MCP, 25 degree PIP Significant thickening of the cord over the A1 skyler. 2. Right ring finger Dupuytren's contracture: 15 degree MCP, 0 degree PIP 3. Right middle finger Dupuytren's contracture: 10 degree MCP, 0 degree PIP I educated the patient about these conditions. We discussed operative and non operative treatment options and he wishes to proceed with surgery. The risks and benefits of operative treatment were discussed with the patient and the patient wishes to proceed with surgery. These risks include, but are not limited to risk of damage to blood vessels, nerves, tendons, infection, recurrence, incomplete relief of preoperative symptoms, persistent pain, possible need for further surgery and the risks associated with regional blocks and anesthesia. The plan is to take the patient to the operating room sometime in the next few weeks for the following procedures: 1. Right small finger partial Dupuytren's fasciectomy 2. Possible right ring finger partial Dupuytren's fasciectomy in the palm All of the preoperative paperwork including the consent was filled out today. All the patient's questions were answered. The patient understands that they will be contacted by our surgery scheduling coordinator soon to schedule this procedure 4. Left small finger Dupuytren's contracture, S/P partial fasciectomy DOS: 08/24/2022 Pre-operative: 15? MCP/20? PIP Post-operatively: With full extension He went on to do very well following surgery and is pleased with the results. Coding Level of Care Code Est Pt Level 4 (16167) Diagnoses Dupuytren's contracture of left hand M72.0 Dupuytren's contracture of right hand M72.0
== END 2023-07-20 09:14 | disposition home or self-care (01) ==
PROVIDERS: PCP Nurse Practitioner Family; Visit Provider Orthopaedic Surgery
DX: M72.0 Palmar fascial fibromatosis [Dupuytren] (principal)
CPT/HCPCS: 99214

== ENCOUNTER → 2023-07-20 08:34 | Outpatient (BNVA) | payer BC, SELFPAY | PROVIDERS: PCP Nurse Practitioner Family; Visit Provider Orthopaedic Surgery ==

== ENCOUNTER 2023-07-27 10:08 | Outpatient (AMB) | payer BC, SELFPAY ==
--- NOTE | 2023-07-27 10:19 | MHC.OFFVIS ---
Intake Vital Signs 07/27/23 10:22 Height 6 ft 2 in Weight 199 lb BMI 25.5 Handedness Right Intake Visit Reasons: New Prob - Left Shoulder Pain Intake Note: Arnel is a 63 year old right hand dominant male who presents today for a evaluation for his left shoulder pain. Hx of injections with some relief No hx of PT. Patient reports ongoing pain for about a week. Pain is on the posterior aspect of the shoulder and it moves down to his elbow and radiates up to his neck per patient. He reports his pain is worse when - . Allergies Penicillins Allergy (Unknown, Verified 07/27/23 10:22) Unknown HPI New Prob - Left Shoulder Pain HPI Details 63-year-old right hand dominant male who presents in the office today for an evaluation of left shoulder pain. The patient reports ongoing pain for the past week. He claims his pain is on the posterior aspect of the left shoulder and it radiates down to the elbow and up to her neck. He confirms a history of cortisone injections, with some relief. He denies a history of participating in physical therapy. Patient confirms a right shoulder rotator cuff repair. Patient has a significant medical history of diabetes mellitus. [facility] Medical History Arthritis Constipation COVID-19 vaccine series completed Degenerative disc disease, lumbar Diabetes Dupuytren contracture Dyslipidemia GERD (gastroesophageal reflux disease) Kidney stones Surgical History H/O colonoscopy History of facial surgery History of lithotripsy Family History Father HTN (hypertension) CVD (cardiovascular disease) Mother HTN (hypertension) Diabetes mellitus Paternal Grandmother Diabetes mellitus Brother No problems noted. Sister No problems noted. Sister No problems noted. Son No problems noted. Daughter No problems noted. Daughter No problems noted. Social History Housing: House Are you a primary managed care manager to a significant other at home: No Do you presently have visiting nurse or other home services: No Patient Tobacco Use Status: Never used Tobacco e-Cigarette/Vaping Use: Never Used Second Hand Smoke Exposure: No Advance Directives Date on File: 12/18/20 Current occupational status: retired Current occupation: right hand Cognitive needs: No Hearing needs: No Vision needs: No Review of Systems Const All systems reviewed & are unremarkable except as noted in HPI and below Physical Exam Vital Signs: BMI result Body Mass Index 25.5 Const General: cooperative, healthy appearing and no acute distress Resp Effort & Inspection: normal respiratory effort and able to speak in complete sentences Cardio Rate: regular rate Peripheral pulses: Peripheral pulses 2+ throughout GI Palpation (GI): Soft to palpation Skin Lesions: no lesions Rashes: no rashes Extrem Other: Left shoulder: Normal to inspection. No ecchymosis, erythema, or edema. Full shoulder ROM in all planes. Negative cross-body reach. Negative empty can. Negative drop arm. NVI. Office Procedures Joint Injection/Drain Joint Injection/Drain Primary Site: left shoulder Prep: site was prepped using aseptic technique, ethochloride spray was applied and injection warnings given Injected: 40 mg of, DepoMedrol, with 8 mL of (2% plain lido) and in the subcromial space Approach Used: posterolateral Procedure: The patient tolerated the procedure well, but had some pain with the injection and there was some relief with the local anesthesia Coding 01679 - Large joint Procedure code (CPT) selection complete Results Reviewed Results Reviewed: 07/27/23 10:30 Lidocaine HCl 2 % MPF [Xylocaine 2 % MPF] 5 ml .ROUTE .STK-MED ONE methylPREDNISolone acetate [DEPO-MedroL] 40 mg .ROUTE .STK-MED ONE Assessment & Plan Assessment & Plan (1) Painful arc syndrome of left shoulder: Code(s): M75.102 - Unspecified rotator cuff tear or rupture of left shoulder, not specified as traumatic Plan Mr. Gómez is a 63-year-old right hand dominant male who presents in the office today for an evaluation of left shoulder pain. The patient reports ongoing pain for the past week. He claims his pain is on the posterior aspect of the left shoulder and it radiates down to the elbow and up to her neck. He confirms a history of cortisone injections, with some relief. He denies a history of participating in physical therapy. Patient confirms a right shoulder rotator cuff repair. Patient has a significant medical history of diabetes mellitus. The patient was offered a cortisone injection in the left shoulder with 40 mg of DepoMedrol. The patient was explained the risk, benefits, and alternatives to receiving this injection. After receiving consent for the injection, the patient had the procedure done while in office today. The patient tolerated the procedure well with no complications. Due to the patient?s history of diabetes, they were instructed to monitor his/her blood glucose level. The patient was informed that they could see a rise in their numbers and if the numbers became too high, they were instructed to call their PCP. The patient was also informed that they could have facial flushing as a side effect of the injection but this will pass. Follow up will be PRN, or sooner if needed. X-rays of the left shoulder obtained while in the office today and reviewed by me, Katherine Worrell PA-C, revealed no acute fracture or dislocation. Orders: Orders XR shoulder LT min 2V Today M25.519 - Pain in unspecified shoulder Patient Instructions: Scribed for Katherine Worrell PA-C by Kamini Mix medical assistant float, on 07/27/2023 at 10:33 am, EST. Coding Level of Care Code Est Pt Level 4 (68646) Diagnoses Painful arc syndrome of left shoulder M75.102 CPT Codes Coding - 29654 Large joint: 25855 - Large joint ([id number])
[2023-07-27 10:22] VITALS: BMI 25.5
== END 2023-07-27 10:52 | disposition home or self-care (01) ==
PROVIDERS: PCP Nurse Practitioner Family; Visit Provider Physician Assistant
DX: M75.102 Unspecified rotator cuff tear or rupture of left shoulder, not specified as traumatic (principal)
CPT/HCPCS: 20610; 99214

== ENCOUNTER 2023-07-27 12:02 | Outpatient (REF) | payer BC, SELFPAY ==
--- NOTE | ~2023-07-27 | XR_ITS ---
EXAMINATION: XR SHOULDER, LEFT CLINICAL INFORMATION: Shoulder pain COMPARISON: None available. TECHNIQUE: 3 views of the left shoulder. FINDINGS: No acute fracture or dislocation. Glenohumeral and acromioclavicular alignment is anatomic with normal joint space. No abnormal soft tissue calcifications. Intact left clavicle. No suspicious findings in the visualized left lung. XR/XR shoulder LT min 2V IMPRESSION: No acute osseous abnormality.
== END 2023-07-27 12:03 | disposition home or self-care (01) ==
LOC: HO.HOSX 12:02
PROVIDERS: Visit Provider Physician Assistant
DX: M75.102 Unspecified rotator cuff tear or rupture of left shoulder, not specified as traumatic (principal)
CPT/HCPCS: 20610; 73030; J1020

== ENCOUNTER 2023-08-02 06:11 | Day surgery (SDC) | payer BC, SELFPAY ==
[2023-07-29 11:29] VITALS: BMI 25.5
[2023-08-02] VITALS (9 sets, daily range): BP systolic 140–164; BP diastolic 82–97; PULSE 71–85; RESP 18–20; TEMP 36.1–36.7; O2SAT 94–99
[2023-08-02 07:02] LABS: Glucose, Whole Blood 144 mg/dL (60-115)
[2023-08-02] MEDS: Lactated Ringers 1,000 ML 100 ML IVCONT (07:04)
--- NOTE | 2023-08-02 07:15 | P.CONAN_ITS ---
Documented by User: Niki Irene NP 07/30/23 09:36 HPI - Anesthesia Eval Consult details Narrative: 63yo M for Right Small and Ring finger Fasciectomy hand dupuytrens s/p left side 08/2022 with GA-LMA 5. Was cardiac cleared prior. (HTN, Mild aortic insufficiency) [facility] Active Problems Active Problems: All Active Problems (Updated 07/27/23 @ 10:45 by Kamini Mix) Painful arc syndrome of left shoulder (Acute) Hip pain, bilateral (Acute) Mild aortic insufficiency (Acute) Preop cardiovascular exam (Acute) Systolic murmur (Acute) Physical exam (Acute) Erectile dysfunction associated with type 2 diabetes mellitus (Acute) Diabetes (Acute) Back pain (Acute) Viral URI (Acute) Dupuytren's contracture of right hand (Acute) Dupuytren's contracture of left hand (Acute) Diabetes (Acute) Screening PSA (prostate specific antigen) (Acute) HTN (hypertension) (Acute) Nephrolithiasis (Acute) Peyronie's disease (Acute) Past Medical History Medical History Degenerative disc disease, lumbar Arthritis COVID-19 vaccine series completed GERD (gastroesophageal reflux disease) Diabetes Kidney stones Dyslipidemia Constipation Dupuytren contracture Family History Family History Father HTN (hypertension) CVD (cardiovascular disease) Mother HTN (hypertension) Diabetes mellitus Paternal Grandmother Diabetes mellitus Brother No problems noted. Sister No problems noted. Sister No problems noted. Son No problems noted. Daughter No problems noted. Daughter No problems noted. Surgical History Surgical History History of lithotripsy History of facial surgery H/O colonoscopy History of Problems with Anesthesia: No Social History Social History Housing: House Are you a primary home health aide caregiver to a significant other at home: No Do you presently have visiting nurse or other home services: No Patient Tobacco Use Status: Never used Tobacco e-Cigarette/Vaping Use: Never Used Second Hand Smoke Exposure: No Are you DNR?: No Advance Directives: No Advance Directives Information Provided: Yes Advance Directives Date on File: 12/18/20 Nutrition Risks: No Nutritional Risk Current occupational status: retired Current occupation: right hand Cognitive needs: No Hearing needs: No Vision needs: No Meds Allergies Allergy/AdvReac Type Severity Reaction Status Date / Time Penicillins Allergy Unknown Unknown Verified 08/02/23 06:59 Home Medications Medication Instructions Recorded Confirmed Last Taken Type lancets #100 ea 11/11/20 02/24/23 Unknown History Exam Exam Date and Time: July 30, 2023 0932 Height,Weight and Vital Signs: Height 6 ft 2 in Weight 90.265 kg Pertinent Lab Results Pertinent Lab Results: Laboratory Tests 06/30/22 06/30/22 09:45 09:45 WBC 6.1 Hgb 14.1 Hct 40.2 L Plt Count 195 Sodium 138 Potassium 4.2 Chloride 102 Carbon Dioxide 27 BUN 23 H Creatinine 1.26 Narrative Narrative: EKG 07/2022 Sinus rhythm 70 beats per minute, normal EKG, QT interval 410 milliseconds ECHO 07/2022 Conclusions: - 1.? Normal LV systolic function with moderate asymmetric septal hypertrophy with grade 1 diastolic dysfunction ? 2.? Mild aortic regurgitation? 3.? Mildly dilated ascending aorta at 3.9 cm ? 4.? Normal RV systolic pressure? 5.? No pericardial effusion?? Assessment and Plan Assessment Anesthesia Assessment: Chart Reviewed Final Anesthetic Review History of Problems with Anesthesia: No Documented by User: Sonya Garg DO 08/02/23 07:33 [facility] Past Medical History Medical History Degenerative disc disease, lumbar Arthritis COVID-19 vaccine series completed GERD (gastroesophageal reflux disease) Diabetes Kidney stones Dyslipidemia Constipation Dupuytren contracture Family History Family History Father HTN (hypertension) CVD (cardiovascular disease) Mother HTN (hypertension) Diabetes mellitus Paternal Grandmother Diabetes mellitus Brother No problems noted. Sister No problems noted. Sister No problems noted. Son No problems noted. Daughter No problems noted. Daughter No problems noted. Family history of problems with anesthesia: No Surgical History Surgical History History of lithotripsy History of facial surgery H/O colonoscopy History of Problems with Anesthesia: No Social History Social History Housing: House Are you a primary home health aide caregiver to a significant other at home: No Do you presently have visiting nurse or other home services: No Patient Tobacco Use Status: Never used Tobacco e-Cigarette/Vaping Use: Never Used Second Hand Smoke Exposure: No Are you DNR?: No Advance Directives: No Advance Directives Information Provided: Yes Advance Directives Date on File: 12/18/20 Nutrition Risks: No Nutritional Risk Current occupational status: retired Current occupation: right hand Cognitive needs: No Hearing needs: No Vision needs: No Meds Allergies Allergy/AdvReac Type Severity Reaction Status Date / Time Penicillins Allergy Unknown Unknown Verified 08/02/23 06:59 Home Medications Medication Instructions Recorded Confirmed Last Taken Type lancets #100 ea 11/11/20 02/24/23 Unknown History Exam Exam Date and Time: August 02, 2023 0710 Height,Weight and Vital Signs: Height 6 ft 2 in Weight 90.265 kg Vital Signs Temperature 98.1 F 08/02/23 06:58 Pulse Rate 71 08/02/23 06:58 Respiratory Rate 18 08/02/23 06:58 Blood Pressure 154/85 H 08/02/23 06:58 Pulse Oximetry 96 08/02/23 06:58 Oxygen Delivery Method Room Air 08/02/23 06:58 Temperature 98.1 F 08/02/23 06:58 Pulse Rate 71 08/02/23 06:58 Respiratory Rate 18 08/02/23 06:58 Blood Pressure 154/85 H 08/02/23 06:58 Pulse Oximetry 96 08/02/23 06:58 Oxygen Delivery Method Room Air 08/02/23 06:58 Airway Mallampati Class: I TM Dist: >3cm Neck ROM: Full Loose/Missing/Broken Teeth: No Heart: S1S2 Lungs: CTAB Assessment and Plan Assessment Anesthesia Assessment: Anesthesia Plan Discussed and Chart Reviewed Final Anesthetic Review Family History of Problems with Anesthesia: No History of Problems with Anesthesia: No NPO: Yes ASA Class: II Final Preanesthetic Review: No Changes in Pt Med Stat, Meds/Allgs Chart Reviewed, Consent Obtained/Reviewed and Anes Risks/Benef Reviewed Patient Risk: Low Procedure Risk: Low Assessment/Block/Sedation in SS: Assess/Block/Sedation-SS Anesthetic Plan Anesthetic Plan: GA, Regional Block (right brachial plexus block) and Agree w/ Assess. and Plan Disposition: Standard PACU
--- NOTE | 2023-08-02 07:51 | MHC.SHP ---
Pre-Procedural Eval Section A Date of Service: 08/02/23 The patient is an INPATIENT: No Changes since office visit: No Cold of Flu in the past 2 weeks, No New Medical Problems, No Changes in Medication and No Patient answered all questions The History & Physical has been completed within 30 days and I have reviewed it.: Yes Section B Chief Complaint: Palmar fascial fibromatosis [Dupuytren] Allergies: Allergies Allergy/AdvReac Type Severity Reaction Status Date / Time Penicillins Allergy Unknown Unknown Verified 08/02/23 06:59 Plan I have reviewed the history and physical and performed a pertinent physical examination on my patient. No changes have occurred unless specified. Time Spent With Patient Time: Total time managing care of this patient today ____ minutes.
--- NOTE | 2023-08-02 07:52 | W.PM.OPN ---
Operative Note Operative Note Date of Service: 08/02/23 Narrative: Preop diagnosis: 1. right small finger Dupuytren's contracture Postop diagnosis: Same Procedure: 1. right small finger Partial Dupuytren's fasciectomy Surgeon: Padmaja Reyes MD Anesthesia: General anesthesia plus regional block Findings: Implants: None Tourniquet time: 81minutes EBL: 5.0 ml Specimen: small finger Dupuytren's cord Drains: None Complications: None Disposition: Brought to the recovery room in stable condition Plan: Follow-up in 10-14 days for wound check, suture removal and to check pathology OT appt on day of f/u to make a custom night spint and to begin OT Indications: The patient is a 63 year old mm with right small finger Dupuytren's contracture . The risks and benefits of operative treatment, including but not limited to risk of damage to blood vessels, nerves, tendons, infection, recurrence, persistent pain or numbness, incomplete resolution of preoperative symptoms, or need for further surgery were discussed with the patient and they wished to proceed with surgery. Procedure: Once consent was obtained patient was brought back to the operating suite and placed in the operating table in a supine position. A regional block was performed by the anesthesia team. Perioperative antibiotics and anesthesia was administered by the anesthesia team. A tourniquet was applied to the proximal aspect of the right upper extremity and the limb was prepped and draped in a standard surgical fashion. The limb was elevated exsanguinated with Esmarch bandage and the tourniquet inflated to 250 mm of mercury for a total tourniquet time of 81 minutes. I made a Angle type incision extending along the Dupuytren's cord from the mid palm to the DIP flexion crease of the left ring finger. The Incision was made with a 15. Blade through the skin the subcutaneous tissues. I then carefully dissected down to the level of the Dupuytren's cord beginning at the proximal aspect of the incision. This was done using tenotomy in iris scissors. Care was taken to protect the nearby neurovascular structures. The Dupuytren's cord was cut at its proximal aspect using tenotomy scissors. It was then grasped with an Allis clamp. The Dupuytren's cord was then carefully dissected free in a proximal to distal direction using tenotomy scissors and again taking care to protect the nearby neurovascular structures. At about the A1 skyler area the superficial aspect of the cord was significantly adherent to the skin extending from this area distally to the area over the proximal phalanx. The skin was carefully dissected free from the underlying Dupuytren's cord. Again we continued dissecting the cord free from the surrounding tissues including skin, bone and the tendon sheath in a proximal to distal direction. Great care was taken to protect the neurovascular structures. The radial neurovascular bundle was identified and dissected free from some of the overlying Dupuytren's cord and its more radially directed extensions. The Dupuytren's cord extended distally to the distal aspect of the middle phalanx. Is dissected free and removed from the patient and placed on the back table to be sent for histopathologic review. We were able to obtain full extension at the MCP, PIP and D IP joints. At this point the tourniquet was deflated and hemostasis obtained with a brief period of local pressure . The wound was copiously irrigated with normal saline. The skin edges were reapproximated with 5-0 Prolene suture. The wound was infiltrated with some 0.25% plain Marcaine for postop pain control and a sterile dressing and volar splint holding the small and ring fingers in extension was applied. The patient appears to have tolerated the procedure well and with no complications. All digits were well vascularized conclusion of the case.
== END 2023-08-02 12:53 | disposition home or self-care (01) ==
PROVIDERS: PCP Nurse Practitioner Family; Visit Provider Orthopaedic Surgery
PROC: (CPT 26123; principal; 2023-08-02 07:30)
DX: M72.0 Palmar fascial fibromatosis [Dupuytren] (principal); E11.9 Type 2 diabetes mellitus without complications; I10 Essential (primary) hypertension; I35.1 Nonrheumatic aortic (valve) insufficiency; E78.5 Hyperlipidemia, unspecified; Z79.84 Long term (current) use of oral hypoglycemic drugs; Z79.899 Other long term (current) drug therapy; Z88.0 Allergy status to penicillin
CPT/HCPCS: 26123; 82947; 88304; J0690; J2250; J2405; J2795; J3010

== ENCOUNTER → 2023-08-02 06:11 | Outpatient (BNV) | payer BC, SELFPAY | PROVIDERS: PCP Nurse Practitioner Family; Visit Provider Orthopaedic Surgery | DX: M65.4 Radial styloid tenosynovitis [de Quervain] (principal) | CPT/HCPCS: 26123 ==

== ENCOUNTER 2023-08-11 09:23 | Outpatient (REF) | payer BC, SELFPAY | END 2023-08-11 09:24 | disposition home or self-care (01) | LOC: HO.LAB 09:23 | PROVIDERS: PCP Nurse Practitioner Family; Visit Provider Nurse Practitioner Family | DX: E11.9 Type 2 diabetes mellitus without complications (principal); I35.1 Nonrheumatic aortic (valve) insufficiency; I10 Essential (primary) hypertension; I77.810 Thoracic aortic ectasia; Z12.5 Encounter for screening for malignant neoplasm of prostate | CPT/HCPCS: 36415; 80053; 80061; 81003; 82043; 82570; 83036; 84153; 84443; 85025; 93005 ==

== ENCOUNTER 2023-08-11 14:30 | Outpatient (AMB) | payer BC, SELFPAY ==
[2023-08-11 14:45] VITALS: BP 120/72; PULSE 76; BMI 24.9
--- NOTE | 2023-08-11 14:45 | A.OFFVIS_ITS ---
Intake Vital Signs 08/11/23 14:45 Height 6 ft 2 in Weight 194 lb 0.108 oz BMI 24.9 BP 120/72 Blood Pressure Location Lt brachial Position Sitting Pulse 76 Intake Visit Reasons: 1 yr f/up Intake Note: 1 year follow-up with ekg feeling good It Help Desk Associate Required: No Allergies Penicillins Allergy (Unknown, Verified 08/02/23 06:59) Unknown Medication List - Last Reconciled 08/11/23 by Conor Antonio MD blood sugar diagnostic twice a day dulaglutide (Trulicity) 1.5 mg (0.5 mL) subcut QWEEK 90 days ibuprofen 600 mg PO Q6-8H PRN lancets As directed losartan 25 mg PO DAILY metformin 1,000 mg PO BID tadalafil 5 mg PO DAILY 90 days HPI HPI Comments History of Present Illness Details Pleasant 63 gentleman is here for f/u. He is undergoing surgery on left hand Dupuytren's contracture. No background of alcoholism or liver disease. He has been a diabetic and has background of hypertension. Also has family history of coronary disease with his father developing coronary disease and underwent bypass surgery in his 50s. He has been active and plays pickleball and has no exertional chest discomfort or shortness of breath. Denying any other issues currently. Blood pressure is mildly low but he has been asymptomatic and has been taking losartan regularly. 08/11/23: He returns for follow-up. He underwent left hand followed by right hand Dupuytren contracture surgery. He is recovering from the right hand surgery currently. He is saying he has been active and was playing pickleball regularly. No chest discomfort shortness of breath. His echocardiography which showed mild dilation ascending aorta 3.9 cm and mild aortic valve regurgitation. His blood pressure control is good. We discussed about the echocardiogram and plan going forward of monitoring the aorta and aortic valve. [facility] Medical History Degenerative disc disease, lumbar Arthritis COVID-19 vaccine series completed GERD (gastroesophageal reflux disease) Diabetes Kidney stones Dyslipidemia Constipation Dupuytren contracture Surgical History History of lithotripsy History of facial surgery H/O colonoscopy Family History Father HTN (hypertension) CVD (cardiovascular disease) Mother HTN (hypertension) Diabetes mellitus Paternal Grandmother Diabetes mellitus Brother No problems noted. Sister No problems noted. Sister No problems noted. Son No problems noted. Daughter No problems noted. Daughter No problems noted. Social History Housing: House Are you a primary wound care nurse to a significant other at home: No Do you presently have visiting nurse or other home services: No Patient Tobacco Use Status: Never used Tobacco e-Cigarette/Vaping Use: Never Used Second Hand Smoke Exposure: No Advance Directives Date on File: 12/18/20 Current occupational status: retired Current occupation: right hand Cognitive needs: No Hearing needs: No Vision needs: No Review of Systems Const Denies chills, Denies fatigue, Denies fever(s), Denies frequent falls, Denies weakness, Denies weight gain and Denies weight loss ENT Denies dizziness Card Denies chest pain, Denies leg edema, Denies lightheadedness, Denies palpitations, Denies dyspnea, Denies dyspnea on exertion, Denies orthopnea and Denies other (loss of consciousness) Resp Denies cough, Denies dyspnea and Denies dyspnea on exertion GI Denies hematochezia and Denies change in stool character Musc Denies abnormal gait, Denies muscle weakness, Denies numbness, Denies radiating pain into limb and Denies tingling Neuro Denies abnormal gait, Denies dizziness, Denies frequent falls, Denies numbness, Denies tingling and Denies weakness Endo Denies fatigue and Denies palpitations Physical Exam Vital Signs: Last Vital Signs Pulse 76 08/11/23 14:45 BP 120/72 08/11/23 14:45 BMI result Body Mass Index 24.9 GENERAL APPEARANCE: in no acute distress, pleasant. NECK: no carotid bruit, no jugular venous distention. SKIN: no suspicious lesions, warm and dry. HEART: no murmurs, regular rate and rhythm. LUNGS: clear to auscultation bilaterally. ABDOMEN: soft, nontender. EXTREMITIES: no edema. PERIPHERAL PULSES: equal. NEUROLOGIC: No gross deficits, AAO X 3 Office Procedures EKG Details: Sinus rhythm 76 beats per minute, axis, left ventricular hypertrophy, QTC 427 milliseconds. [id number], Complete Assessment & Plan Assessment & Plan (1) Mild aortic insufficiency: Code(s): I35.1 - Nonrheumatic aortic (valve) insufficiency (2) HTN (hypertension): Code(s): I10 - Essential (primary) hypertension (3) Mild dilation of ascending aorta: Code(s): I77.810 - Thoracic aortic ectasia Plan 63 male with mild ascending aorta dilation and mild AI. Clinically stable. Repeat echo next year (2 years from previous) to reassess aortic size and aortic regurg. f/u in 1 year. Orders: Orders CA echo transthoracic complete Today I35.1 - Nonrheumatic aortic (valve) insufficiency Coding Level of Care Code Est Pt Level 3 (83766) Diagnoses Mild aortic insufficiency I35.1 HTN (hypertension) I10 Mild dilation of ascending aorta I77.810 CPT Codes EKG - CPT: 24088-[id number], Complete ([id number])
== END 2023-08-11 15:18 | disposition home or self-care (01) ==
PROVIDERS: Visit Provider Internal Medicine Cardiovascular Disease
DX: I35.1 Nonrheumatic aortic (valve) insufficiency (principal); I10 Essential (primary) hypertension; I77.810 Thoracic aortic ectasia
CPT/HCPCS: 93010; 99213

== ENCOUNTER 2023-08-18 12:43 | Outpatient (AMB) | payer BC, SELFPAY ==
[2023-08-18 13:10] VITALS: BMI 24.9
--- NOTE | 2023-08-18 13:10 | A.OFFVIS_ITS ---
Intake Vital Signs 08/18/23 13:10 Height 6 ft 2 in Weight 194 lb BMI 24.9 Intake Visit Reasons: PO-SF & RF Dupuytrens 08/02/23 Intake Note: Arnel is a 63 year old male who presents today for a post operative appointment s/p Right Small Finger and Ring Finger Dupuytrens Release 08/02/23. Patient reports that he is doing well , cont's to have mild numbness in pinky. Sutures removed today. Allergies Penicillins Allergy (Unknown, Verified 08/18/23 13:12) Unknown HPI PO-SF & RF Dupuytrens 08/02/23 HPI Details Arnel is a 63 year old right hand dominant man who presents S/P right small finger Partial Dupuytren's fasciectomy, DOS: 08/02/23. 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 He is happy with the results of his surgery. He continues to have a mild Dupuytrens contracture of the right middle finger He complains of some numbness to the back of his hand, but normal sensation to his fingertips He wants to know when he can return to playing Pickleball [facility] Medical History Degenerative disc disease, lumbar Arthritis COVID-19 vaccine series completed GERD (gastroesophageal reflux disease) Diabetes Kidney stones Dyslipidemia Constipation Dupuytren contracture Surgical History History of lithotripsy History of facial surgery H/O colonoscopy Family History Father HTN (hypertension) CVD (cardiovascular disease) Mother HTN (hypertension) Diabetes mellitus Paternal Grandmother Diabetes mellitus Brother No problems noted. Sister No problems noted. Sister No problems noted. Son No problems noted. Daughter No problems noted. Daughter No problems noted. Social History Housing: House Are you a primary healthcare network pricing consultant to a significant other at home: No Do you presently have visiting nurse or other home services: No Patient Tobacco Use Status: Never used Tobacco e-Cigarette/Vaping Use: Never Used Second Hand Smoke Exposure: No Advance Directives Date on File: 12/18/20 Current occupational status: retired Current occupation: right hand Cognitive needs: No Hearing needs: No Vision needs: No Review of Systems Const All systems reviewed & are unremarkable except as noted in HPI and below Physical Exam Vital Signs: BMI result Body Mass Index 24.9 Const General: no acute distress and alert Orientation/consciousness: patient oriented x3 Neuro General: patient oriented x3 Extrem Other: The patient was alert oriented and in no acute distress The incision is healing well with no erythema drainage or evidence of infection. Sutures removed and Steri-Strips applied When his sutures were removed the proximal ~2-3cm of his incision began to gaping by ~1mm, with no evidence of drainage or infection. He can extend all his digits Initially he had difficulties bringing his small finger closed to a fist. After working on exercises today in clinic we were able to bring his small finger passively closed to touch his palm, and when I let go he was able to actively engage his FDP & FDS tendons Some numbness in the radial digital nerve distribution of the small finger. No rmal sensation ulnar digital nerve distribution of the small finger and also the ulnar digital nerve distribution to the ring finger. Cap refill is brisk Psych Appearance: grossly normal Affect: normal affect Attitude: cooperative Assessment & Plan Assessment & Plan (1) Dupuytren's contracture of left hand: Code(s): M72.0 - Palmar fascial fibromatosis [Dupuytren] (2) Dupuytren's contracture of right hand: Code(s): M72.0 - Palmar fascial fibromatosis [Dupuytren] Plan Assessment and plan: 1. Right small finger Dupuytren's contracture, S/P partial fasciectomy DOS: 08/02/23 Pre-operative MCP 20/PIP 25 Now with full extension The patient appears to be doing well post-operatively I educated him about the post-operative course I explained the signs and symptoms of infection, if the patient develops any new or worsening erythema, drainage, pain, or warmth they should contact the clinic or attend the ED. He should apply topical Abx ointment once daily and cover his incision with a dressing when going out of the house for the next week or so I discussed activity modifications, he is to lift nothing heavier than a cellphone for the next two weeks I told him that he is unable to play Pickleball for the next several weeks at least He will perform gentle ROM exercises at home He should avoid any underwater activities for the next 5 days He should gently massage about the incision site to reduce the risk of hypersensitivity He can follow up in 2-3 weeks to assess his wound healing and range of motion. This follow-up can be with a PA. 3. Right middle finger Dupuytren's contracture: MCP 10/PIP 0 4. Left small finger Dupuytren's contracture, S/P partial fasciectomy DOS: 08/24/2022 Pre-operative: 15? MCP/20? PIP Post-operatively: With full extension He went on to do very well following surgery and is pleased with the results. Scribed for Padmaja Reyes MD by Tyree Yap, medical underwriter, on 08/18/23 at 1:45 PM, EST. Coding Level of Care Code Global (29978) Diagnoses Dupuytren's contracture of left hand M72.0 Dupuytren's contracture of right hand M72.0
== END 2023-08-18 14:16 | disposition home or self-care (01) ==
PROVIDERS: PCP Nurse Practitioner Family; Visit Provider Orthopaedic Surgery
DX: M72.0 Palmar fascial fibromatosis [Dupuytren] (principal)
CPT/HCPCS: 99024

== ENCOUNTER → 2023-08-18 12:43 | Outpatient (BNVA) | payer BC, SELFPAY | PROVIDERS: PCP Nurse Practitioner Family; Visit Provider Orthopaedic Surgery ==

== ENCOUNTER 2023-08-25 11:44 | Outpatient (AMB) | payer BC, SELFPAY ==
[2023-08-25 11:47] VITALS: BMI 24.6
--- NOTE | 2023-08-25 11:47 | A.OFFVIS_ITS ---
Intake Vital Signs 08/25/23 11:47 Height 6 ft 2 in Weight 192 lb BMI 24.6 Intake Visit Reasons: OV, Left Shoulder, neck and back pain Intake Note: Arnel is a 63 year old male who presents today with complaints of left shoulder pain. Hx of left shoulder injection with Katherine on 07/27/23. Pain started in the left shoulder at the end of july, with no injury. Currently the shoulder has improved since having the injection. When pain was present it felt as if it started in the left side of the neck and radiated to shoulder and scapula. Allergies Penicillins Allergy (Unknown, Verified 08/25/23 11:49) Unknown Medication List - Last Reconciled 08/25/23 by Liz Small MD blood sugar diagnostic twice a day dulaglutide (Trulicity) 1.5 mg (0.5 mL) subcut QWEEK 90 days ibuprofen 600 mg PO Q6-8H PRN lancets As directed losartan 25 mg PO DAILY metformin 1,000 mg PO BID tadalafil 5 mg PO DAILY 90 days HPI HPI Comments History of Present Illness Details S/P right small finger Partial Dupuytren's fasciectomy, DOS: 08/02/23. Dr. Reyes. Seen recently by Katherine GUZMÁN for left shoulder pain. Hstory of cortisone injections, with some relief. History of right shoulder rotator cuff repair. Recent left shoulder injection by Katherine. Patient has a significant medical history of diabetes mellitus. Starting to have numbness on feet but not hands yet. Denies neck injuries in the past. Back in July, started having pain on left shoulder blade area. Denies inciting injuries. Plays pickle ball with right hand. Right handed. Even with driving the car. Would go up left neck and arm. The injection took awhile but finally this week started to take effect. Did not have numbness or weakness. Had full neck ROM despite the pain. He was doing heat, for a week. Taking Motrin. [facility] Medical History Degenerative disc disease, lumbar Arthritis COVID-19 vaccine series completed GERD (gastroesophageal reflux disease) Diabetes Kidney stones Dyslipidemia Constipation Dupuytren contracture Surgical History History of lithotripsy History of facial surgery H/O colonoscopy Family History Father HTN (hypertension) CVD (cardiovascular disease) Mother HTN (hypertension) Diabetes mellitus Paternal Grandmother Diabetes mellitus Brother No problems noted. Sister No problems noted. Sister No problems noted. Son No problems noted. Daughter No problems noted. Daughter No problems noted. Social History Housing: House Are you a primary managed care director to a significant other at home: No Do you presently have visiting nurse or other home services: No Patient Tobacco Use Status: Never used Tobacco e-Cigarette/Vaping Use: Never Used Second Hand Smoke Exposure: No Advance Directives Date on File: 12/18/20 Current occupational status: retired Current occupation: right hand Cognitive needs: No Hearing needs: No Vision needs: No Review of Systems Const All systems reviewed & are unremarkable except as noted in HPI and below Physical Exam Vital Signs: BMI result Body Mass Index 24.6 Constitutional: Patient appears to be in no acute distress, well nourished and well developed. Patient was appropriately conversant and oriented. Good historian. MSK: Inspection reveals appropriate head and neck positioning. There is tightness on left upper trapezius and left rhomboids, palpation on left rhomboids actually referred sensation of tingling done left hand. There is some clicking near left rhomboids but there is no scapular winging or asymmetry. No atrophy. Cervical ROM was full. Spurling's sign negative. Bilateral shoulder, elbow and wrist ROM WNL. No ligamentous laxity or crepitance. No increased effusion. Negative empty can sign. Negative speed's test. No asymmetry on bilateral upper extremities. Patient tends to hunch over for posture. Strength is 5/5 in all muscle groups tested. No increased tone noted. Neurological: Neurologic examination of the upper and lower extremities was nonfocal with intact sensation, muscle stretch reflexes and without focal motor deficits . Beaulieu?s negative bilaterally. Babinski was down going bilaterally. Clonus was negative. Gait is non-antalgic without loss of balance. Results Reviewed Results Reviewed: I independently reviewed the results of the following: Shoulder x-ray unremarkable I reviewed records from the following: Hand surgery Orthopedic PCP Assessment & Plan Assessment & Plan (1) Myofascial pain: Code(s): M79.18 - Myalgia, other site Plan Presenting today with trigger points/tightness on left upper trapezius and rhomboids. He may have had left shoulder bursitis which is now improved after steroid injection done by Katherine. No signs of rotator cuff injury/tear on exam today. No signs of cervical radiculopathy or myelopathy on exam today. Symptoms and exam are consistent with myofascial pain without signs of radiculopathy or myelopathy or neurological deficits. Encouraged to keep active, exercise and stretch. Taught him 1 exercise that could help with posture. May consider trial of trigger point injections. Since symptoms are getting better, we will defer for now. Assessment and plan discussed with patient, and patient was agreeable. All questions were answered thoroughly. To call if symptoms recur or become severe. Liz Small MD, ESTHER Board Certified, [place] [employer] and [employer] (ABPMR) Board Certified, [place] [employer] Electrodiagnostic [employer] (ABEM) Coding Level of Care Code New Pt Level 3 (70756) Diagnoses Myofascial pain M79.18
== END 2023-08-25 12:58 | disposition home or self-care (01) ==
PROVIDERS: PCP Nurse Practitioner Family; Visit Provider Physical Medicine & Rehabilitation
DX: M79.18 Myalgia, other site (principal)
CPT/HCPCS: 99203

== ENCOUNTER → 2023-08-25 11:44 | Outpatient (BNVA) | payer BC, SELFPAY | PROVIDERS: PCP Nurse Practitioner Family; Visit Provider Physical Medicine & Rehabilitation ==

== ENCOUNTER 2023-08-26 08:38 | Outpatient (AMB) | payer BC, SELFPAY ==
--- NOTE | 2023-08-26 08:40 | MHC.PC.OV ---
Vital Signs 08/26/23 08:42 Height 6 ft 2 in Weight 196 lb 8 oz BMI 25.2 BP 130/80 Blood Pressure Location Lt brachial Position Sitting Pulse 69 Pulse Source Pulse Oximeter Pulse Oximetry (%) 99 Oxygen Delivery Method Room Air Intake Visit Reasons: annual PE Allergies Penicillins Allergy (Unknown, Verified 08/26/23 08:42) Unknown Tobacco use date assessed: 02/24/23 Fall risk assessment: No Falls in past year Last assessed Fall Risk: 08/26/23 Dental Screening Dental Screen Date: 08/26/23 Did you have a dental visit in the last 12 months?: Yes Did you have a dental problem in the last 6 months where you did not have access to dental care?: No Was dental information given to patient?: Patient has dentist HPI annual PE HPI Details Pt is here for a PE. Labs were already performed. Colon screen is up to date. PSA is up to date. Pt is a diabetic, on an ARB. Last A1C was 5.8. Microalbumin is up to date. Denies polyuria, polydipsia, but does have neuropathy to toes 2-5 bilat. Pt denies any signs and symptoms of hypoglycemia and does know how to correct it. recent left hand surg for DP. Pt encoruaged to get flu/pneumo vaccinations at pharmacy, and follow up with eye exam on a yearly basis. Pt sees cardiology on a regular basis. [facility] Medical History Degenerative disc disease, lumbar Arthritis COVID-19 vaccine series completed GERD (gastroesophageal reflux disease) Diabetes Kidney stones Dyslipidemia Constipation Dupuytren contracture Surgical History History of lithotripsy History of facial surgery H/O colonoscopy Family History Father HTN (hypertension) CVD (cardiovascular disease) Mother HTN (hypertension) Diabetes mellitus Paternal Grandmother Diabetes mellitus Brother No problems noted. Sister No problems noted. Sister No problems noted. Son No problems noted. Daughter No problems noted. Daughter No problems noted. Social History Housing: House Are you a primary healthcare manager to a significant other at home: No Do you presently have visiting nurse or other home services: No Patient Tobacco Use Status: Never used Tobacco e-Cigarette/Vaping Use: Never Used Second Hand Smoke Exposure: No Advance Directives Date on File: 12/18/20 Current occupational status: retired Current occupation: right hand Cognitive needs: No Hearing needs: No Vision needs: No Questionnaire Thrive Questionnaire Date Thrive assessed: 06/17/22 AUDIT C Alcohol Use Questionnaire (AUDIT-C) 1. How often do you have a drink containing alcohol?: Never 3. How often do you have six or more drinks on one occasion?: Never Total Score: 0 Score Reviewed/Action Taken: No DESIREE-7 AMB Questionnaire DESIREE-7 Date DESIREE - 7 assessed: 06/17/22 Source: Developed by Drs. Eron Eldridge, Elly Saldana, Chuy Lockett and colleagues, with an educational gary from [employer]. Review of Systems Const Denies chills and Denies fever(s) Eyes Denies blurry vision ENT Denies vertigo, Denies dizziness and Denies sore throat Card Denies chest pain at rest, Denies chest pain with activity, Denies diaphoresis, Denies dyspnea and Denies dyspnea on exertion Resp Denies cough, Denies dyspnea, Denies dyspnea on exertion and Denies wheezing GI Denies abdominal pain, Denies melena, Denies hematochezia, Denies constipation, Denies diarrhea and Denies loose stools Denies hematuria Musc Denies numbness and Denies tingling Skin/Breast Denies lesions Neuro Denies vertigo, Denies dizziness, Denies numbness and Denies tingling Psych Denies anxiety, Denies depression, Denies homicidal ideation, Denies suicidal ideation and Denies other (substance abuse) Aller/Immun Denies wheezing Physical exam (Primary Care) Vital Signs: Last Vital Signs Pulse 69 08/26/23 08:42 BP 130/80 08/26/23 08:42 Pulse Ox 99 08/26/23 08:42 Oxygen Delivery Method Room Air 08/26/23 08:42 BMI result Body Mass Index 25.2 Tobacco/Smoking Status: Tobacco use Status Tobacco use date assessed 02/24/23 08/26/23 08:45 Patient Tobacco Use Status Never used Tobacco 08/26/23 08:45 e-Cigarette/Vaping Use Never Used 08/26/23 08:45 Thrive Assessment: Date of Thrive Assessment Date Thrive assessed 06/17/22 08/26/23 08:45 Const General: cooperative Nutritional Appearance: well nourished Orientation/consciousness: patient oriented x3 HENMT Head: Yes normal to inspection, Yes normocephalic and Yes atraumatic Ears: TM's normal bilaterally Eyes General: appearance normal, both eyes and all related structures Alignment and Position: alignment normal and position normal Neck Neck: Yes normal visual inspection and Yes no lymphadenopathy Thyroid: Thyroid normal Resp Effort & Inspection: normal respiratory effort Auscultation: clear to auscultation bilaterally Cardio Rate: regular rate Rhythm: regular rhythm Heart sounds: S1 normal heart sound present, S2 normal heart sound present and Murmur heart sound present systolic GI Palpation (GI): Soft to palpation and nontender Auscultation: normal bowel sounds Male General Exam: Yes normal external exam Penis: normal penis Scrotum: scrotum normal, testes descended bilaterally and no inguinal hernias Testes: no testicular mass Skin Rashes: no rashes Neuro General: patient oriented x3, moves all extremities, no focal motor deficits and deep tendon reflexes 2+ bilaterally Romberg Test: Negative Extrem Other: bilat feet: + sensation with use of monofilament Psych Appearance: grossly normal Mental Status: mental status grossly normal Speech and movement: Normal speech and movement present Affect: normal affect Attitude: cooperative Thought process: Normal thought process present Thought content: Normal thought content present Insight: Good insight present (Psych) Judgement: Good judgement present (Psych) Assessment and Plan Assessment & Plan (1) Physical exam: Code(s): Z00.00 - Encounter for general adult medical examination without abnormal findings (2) Diabetes: Comment: FBS range usually 120-140 Code(s): E11.9 - Type 2 diabetes mellitus without complications Plan The patient agreed to the use of a medical esthetician for this encounter. Scribed for CHEYANNE Zuniga by Kay Nina medical esthetician, on 08/26/2023 at 09:00 EST Coding Level of Care Code Est Pt Prev Care >65y(64831) Diagnoses Physical exam Z00.00 Diabetes E11.9
[2023-08-26 08:42] VITALS: BP 130/80; PULSE 69; O2SAT 99; BMI 25.2
== END 2023-08-26 10:07 | disposition home or self-care (01) ==
PROVIDERS: Visit Provider Nurse Practitioner Family
DX: Z00.00 Encounter for general adult medical examination without abnormal findings (principal); E11.9 Type 2 diabetes mellitus without complications
CPT/HCPCS: 99397

== ENCOUNTER 2023-09-01 09:24 | Outpatient (AMB) | payer BC, SELFPAY ==
--- NOTE | 2023-09-01 09:32 | A.OFFVIS_ITS ---
Intake Vital Signs 09/01/23 09:33 Height 6 ft 2 in Weight 192 lb BMI 24.6 Intake Visit Reasons: PO, R Dup follow up 08/02/23 surg Intake Note: Arnel is a 63 year old male who presents today for a post operative appointment s/p Right Small Finger and Ring Finger Dupuytrens Release 08/02/23. Patient reports that he is doing well however cont's to have numbness in his pinky. Allergies Penicillins Allergy (Unknown, Verified 09/01/23 09:36) Unknown HPI PO, R Dup follow up 08/02/23 surg HPI Details Arnel is a 63 year old right hand dominant man who presents for a wound & ROM check S/P right small finger Partial Dupuytren's fasciectomy, DOS: 08/02/23. 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 He is happy with the results of his surg rajendra. He continues to have a mild Dupuytrens contracture of the right middle finger He wants to know when he can return to playing Pickleball [facility] Medical History Degenerative disc disease, lumbar Arthritis COVID-19 vaccine series completed GERD (gastroesophageal reflux disease) Diabetes Kidney stones Dyslipidemia Constipation Dupuytren contracture Surgical History History of lithotripsy History of facial surgery H/O colonoscopy Family History Father HTN (hypertension) CVD (cardiovascular disease) Mother HTN (hypertension) Diabetes mellitus Paternal Grandmother Diabetes mellitus Brother No problems noted. Sister No problems noted. Sister No problems noted. Son No problems noted. Daughter No problems noted. Daughter No problems noted. Social History Housing: House Are you a primary intensive care anaesthetist to a significant other at home: No Do you presently have visiting nurse or other home services: No Patient Tobacco Use Status: Never used Tobacco e-Cigarette/Vaping Use: Never Used Second Hand Smoke Exposure: No Advance Directives Date on File: 12/18/20 Current occupational status: retired Current occupation: right hand Cognitive needs: No Hearing needs: No Vision needs: No Physical Exam Vital Signs: BMI result Body Mass Index 24.6 Const General: no acute distress and alert Orientation/consciousness: patient oriented x3 Neuro General: patient oriented x3 Extrem Other: The patient was alert oriented and in no acute distress The incision is healing well, and is now closed, with no erythema drainage or evidence of infection. He can now bring all his fingers closed to a fist and back into full extension Some numbness in the radial digital nerve distribution of the small finger. Normal sensation ulnar digital nerve distribution of the small finger and also the ulnar digital nerve distribution to the ring finger. Cap refill is brisk Psych Appearance: grossly normal Affect: normal affect Attitude: cooperative Assessment & Plan Assessment & Plan (1) Dupuytren's contracture of left hand: Code(s): M72.0 - Palmar fascial fibromatosis [Dupuytren] (2) Dupuytren's contracture of right hand: Code(s): M72.0 - Palmar fascial fibromatosis [Dupuytren] Plan Assessment and plan: 1. Right small finger Dupuytren's contracture, S/P partial fasciectomy DOS: 08/02/23 Pre-operative MCP 20/PIP 25 Now with full extension The patient appears to be doing well post-operatively I educated him about the post-operative course I explained the signs and symptoms of infection, if the patient develops any new or worsening erythema, drainage, pain, or warmth they should contact the clinic or attend the ED. I discussed activity modifications, he is to avoid any heavy lifting activities for the next few weeks I told him that he is able to play Pickleball now, but nothing extreme He will continue to perform gentle ROM exercises at home He should gently massage about the incision site to reduce the risk of hypersensitivity He can follow up prn 3. Right middle finger Dupuytren's contracture: MCP 10/PIP 0 4. Left small finger Dupuytren's contracture, S/P partial fasciectomy DOS: 08/24/2022 Pre-operative: 15? MCP/20? PIP Post-operatively: With full extension He went on to do very well following surgery and is pleased with the results. Scribed for Padmaja Reyes MD by Tyree Yap medical physics researcher, on 09/01/23 at 9:45 AM, EST. Coding Level of Care Code Global (97352) Diagnoses Dupuytren's contracture of left hand M72.0 Dupuytren's contracture of right hand M72.0
[2023-09-01 09:33] VITALS: BMI 24.6
== END 2023-09-01 10:26 | disposition home or self-care (01) ==
PROVIDERS: PCP Nurse Practitioner Family; Visit Provider Orthopaedic Surgery
DX: M72.0 Palmar fascial fibromatosis [Dupuytren] (principal)
CPT/HCPCS: 99024

== ENCOUNTER → 2023-09-01 09:24 | Outpatient (BNVA) | payer BC, SELFPAY | PROVIDERS: PCP Nurse Practitioner Family; Visit Provider Orthopaedic Surgery ==

== ENCOUNTER 2023-09-01 09:52 | Outpatient (AMB) | payer BC, SELFPAY ==
--- NOTE | 2023-09-01 10:00 | MHC.OFFVIS ---
Intake Intake Visit Reasons: 6m follow up Intake Note: Patient is Present for Follow Up Urology Medication: None Antibiotic Allergies: Penicillins Blood Thinners: None Pharmacy: [facility] Allergies Penicillins Allergy (Unknown, Verified 09/01/23 09:36) Unknown Medication List - Last Reconciled 09/01/23 by Raimundo Goodwin MD blood sugar diagnostic twice a day dulaglutide (Trulicity) 1.5 mg (0.5 mL) subcut QWEEK 90 days ibuprofen 600 mg PO Q6-8H PRN lancets As directed losartan 25 mg PO DAILY metformin 1,000 mg PO BID HPI HPI Comments History of Present Illness Details Arnel is a pleasant male. He is a patient of Dr. Cruz. He is seen for the following urologic conditions - Nephrolithiasis - Peyronie's disease - Dupuytren contractures - erectile dysfunction Would like to continue conservative therapy with daily tadalafil May go up to 30 mg on demand Six month follow-up HbA1c 08/23 5.8% Nephrolithiasis They are here for - further evaluation for nephrolithiasis, . Urolithiasis was diagnosed - 03/20 The patient previously had kidney stones whose composition w - unknown Laboratory investigations include - no recent labs 24 Hour urine evaluation - none on file Prior treatment(s) include - ESWL 07/22 Prior imaging includes - a CT - stone protocol 03/20 4 mm in 1 mm right renal stones - 12/22 KUB left 6 mm renal stone - 08/21 US right 2.4 cm complex cyst - 02/20 renal ultrasound 2.4 cm right complex cyst Bosniak 2, 5 mm Left Current therapeutic plan will be - surveillance imaging Peyronie's disease Dorsal curvature, mid shaft lesion Does not interfere with intercourse Has no pain - Appears to have stabilized Does have associated Dupuytren's contractures and diabetes PSA 05/21 0.5, 06/22 0.5 Imaging - 11/23 penile ultrasound shows no calcification lesion PFSH Medical History Degenerative disc disease, lumbar Arthritis COVID-19 vaccine series completed GERD (gastroesophageal reflux disease) Diabetes Kidney stones Dyslipidemia Constipation Dupuytren contracture Surgical History History of lithotripsy History of facial surgery H/O colonoscopy Family History Father HTN (hypertension) CVD (cardiovascular disease) Mother HTN (hypertension) Diabetes mellitus Paternal Grandmother Diabetes mellitus Brother No problems noted. Sister No problems noted. Sister No problems noted. Son No problems noted. Daughter No problems noted. Daughter No problems noted. Social History Housing: House Are you a primary hearing healthcare practitioner to a significant other at home: No Do you presently have visiting nurse or other home services: No Patient Tobacco Use Status: Never used Tobacco e-Cigarette/Vaping Use: Never Used Second Hand Smoke Exposure: No Advance Directives Date on File: 12/18/20 Current occupational status: retired Current occupation: right hand Cognitive needs: No Hearing needs: No Vision needs: No Review of Systems Const Denies chills and Denies fever(s) Card Reports no additional complaints and Denies syncope Resp Denies cough GI Denies abdominal pain and Denies heartburn Reports as per HPI and Denies change in libido Neuro Denies syncope Psych Denies change in libido Endo Denies change in libido Physical Exam Const General: cooperative, healthy appearing, comfortable and no acute distress Orientation/consciousness: patient oriented x3 HEENT Face and sinus: Yes normal facial exam Mouth: moist mucous membranes Neck Neck: Yes normal visual inspection, Yes full ROM and Yes trachea midline Chest Chest palpation & inspection: normal inspection of the chest Resp Effort & Inspection: normal respiratory effort, able to speak in complete sentences and no respiratory distress GI Inspection: Yes normal to inspection Back/Spine/Pelvis Cervical Spine: normal cervical lordosis Thoracic/Lumbar Spine: thoracic and lumbar spine normal to inspection Skin General skin exam: no rashes or lesions noted Neuro General: patient oriented x3, gait normal, tone normal and moves all extremities Extrem General: Yes normal to inspection and Yes capillary refill normal Assessment & Plan Assessment & Plan (1) Erectile dysfunction associated with type 2 diabetes mellitus: Code(s): E11.69 - Type 2 diabetes mellitus with other specified complication; N52.1 - Erectile dysfunction due to diseases classified elsewhere (2) Peyronie's disease: Code(s): N48.6 - Induration penis plastica (3) Nephrolithiasis: Code(s): N20.0 - Calculus of kidney Plan Six month follow-up Continue daily tadalafil Orders: Orders US renal BI 6 Months N20.0 - Calculus of kidney Medications: New tadalafil 5 mg PO DAILY 90 tabs 1RF sexual activity 90 days N52.01 - Erectile dysfunction due to arterial insufficiency Patient Instructions: Imaging studies, laboratory and physical exam results were discussed and reviewed in detail. No major barriers to patient understanding were identified. An opportunity to ask questions regarding the treatment plan was provided. All questions were answered. The patient expressed understanding and agreement with the above treatment plan. The patient is aware they should contact our office by phone for worsening of their current condition or the appearance of new urologic symptoms. Compliance is encouraged with any medications and followup testing that is ordered. It is a privilege to participate in the urologic care of your patient. If you have any questions or concerns regarding treatment for the above conditions, or other urologic issues, please do not hesitate to contact me. The office telephone contact is [phone]. This note is constructed using voice recognition software. While every effort has been made to ensure accuracy planner intern errors may have been included. Yours sincerely, Dr Raimundo Goodwin MD, ESTHER [facility] - Urology Providers of Expert, Compassionate Care for the Genitourinary System Coding Level of Care Code Est Pt Level 3 (07716) Diagnoses Erectile dysfunction associated with type 2 diabetes mellitus E11.69; N52.1 Peyronie's disease N48.6 Nephrolithiasis N20.0
== END 2023-09-01 11:07 | disposition home or self-care (01) ==
PROVIDERS: Visit Provider Urology
DX: E11.69 Type 2 diabetes mellitus with other specified complication (principal); N52.1 Erectile dysfunction due to diseases classified elsewhere; N48.6 Induration penis plastica; N20.0 Calculus of kidney
CPT/HCPCS: 99213

== ENCOUNTER → 2023-09-06 14:42 | Outpatient (REF) | payer BC, SELFPAY ==
--- NOTE | 2023-09-06 14:46 | CA_ITS ---
Transthoracic Echocardiogram Patient (Last, First, Middle): Arnel Gómez R Gender: Male Date of : 1960 Age: 63 Procedure Date: 09/06/2023 Procedure Type: Transthoracic Echocardiogram Location: OP Height: 187.96 cm Weight: 88.91 kg BSA: 2.15 m2 Heart Rate: 74 bpm BP: 130 / 80 mmHg Import Customs Clearing Agent: SERA Referring MD: Conor Antonio MD Foam Gun Operator: Conor Antonio MD Symptoms: I35.1 - Nonrheumatic aortic (valve) insufficiency Study Quality: Adequate ECG Rhythm: Sinus w frequent PVC Conclusions: - Normal left ventricular size, thickness, and systolic function. The visually estimated ejection fraction is between 55-60%. - E/E prime ratio is between 8 and 15 consistent with indeterminate filling pressures. There is moderate septal asymmetric hypertrophy. - Mildly increased right ventricular cavity size. There is normal right ventricular systolic function. - There is no aortic valve stenosis. There is trace (trivial) aortic valve regurgitation. Findings Left Ventricle Normal left ventricular size, thickness, and systolic function. The visually estimated ejection fraction is between 55-60%. Abnormal diastolic function is noted. Spectral Doppler is indicative of an impaired relaxation filling pattern. E/E prime ratio is between 8 and 15 consistent with indeterminate filling pressures. There is moderate septal asymmetric hypertrophy. Right Ventricle Mildly increased right ventricular cavity size. There is normal right ventricular systolic function. Atria The left atrium is likely dilated. Aortic Valve There is a normal trileaflet aortic valve. There is no aortic valve stenosis. There is trace (trivial) aortic valve regurgitation. Mitral Valve The mitral valve appears normal. There is trace mitral valve regurgitation. There is no mitral valve stenosis. Pulmonic Valve The pulmonic valve is likely normal. Tricuspid Valve Normal tricuspid valve structure. There is trace tricuspid valve regurgitation. Normal right atrial pressure. There is no evidence of pulmonary hypertension. Great Vessels There is mild dilatation of the ascending aorta measuring 3.80 cm. Venous The inferior vena cava is normal in size and collapses greater than 50% with inspiration. Pericardium/Pleural There is no evidence of pericardial effusion. Prior Study Comparison No significant change compared to prior study dated: 07/09/2022. Measurements 2D Linear Measurements IVSd: 0.86 0.6-0.9/0.6-1.0 cm LVIDd: 5.51 3.9-5.3/4.2-5.9 cm LVIDd Index: 2.56 2.4-3.2/2.2-3.1 cm/m2 LVIDs: 3.87 2.0-3.6 cm LVPWd: 0.80 0.7-1.1 cm LA Diam: 3.60 2.7-3.8/3.0-4.0 cm LAIDs Index: 1.67 1.5-2.3 cm/m2 LV Mass: 208.73 67-162/88-224 g LV Mass Index: 97.08 43-95/49-115 g/m2 LVOT Diam: 2.20 3.0+(-)1.3 cm 2D Systolic Function EF 4C: 57.00 >55% EF 2C: 54.40 >55% EF BiP: 57.60 >55% Mitral Valve MV Pk E: 0.99 MV PK A: 1.05 MV Decel Time: 187.00 E/A: 0.90 E'Lateral: 8.27 E'Medial: 6.31 E/E' Med: 15.80 E/E' Lat: 12.00 PHT: 55.00 MVA PHT: 4.00 Decel Merrick: 5.30 Aortic Valve AoV Pk Mychal: 1.49 AoV Mn Mychal: 1.12 AoV VTI: 0.31 AoV Pk Grad: 9.00 Aov Mn Grad: 5.00 VANESSA Cont.VTI: 2.72 AI Pk Mychal: 4.74 AI VTI: 2.37 AI Merrick: 3.32 LVOT LVOT Pk Mychal: 1.12 LVOT Mn Mychal: 0.80 LVOT VTI: 0.22 LVOT Pk Grad: 5.00 LVOT Mn Grad: 3.00 LVOT Diam: 2.20 LVOT Area: 3.80 Diastolic Function MV Pk E: 0.99 MV Pk A: 1.05 E/A: 0.90 E'Medial: 6.31 E/E' Med: 15.80 E' Laterial: 8.27 E/E' Lat: 12.00 Right Ventricle TAPSE (mm): 22.60 TVS' Mychal: 14.00 Tricuspid Valve TR Pk Mychal: 2.61 TR Pk Grad: 27.00 RA Press: 8.00 RVSP: 35.00 Great Vessels Aorta Sinus of Valsalva: 3.60 2.0-3.5 cm Ao Asc: 3.80 2.1-3.4 cm Pulmonary Valve PV Pk Mychal: 1.14 Peak PV Grad: 5.00 Updated in Other Vendor System with Status of Final Conor Antonio MD electronically signed on 09/08/2023 10:26:25 PM with status of Final
== END ==
LOC: HO.CARD 14:42
PROVIDERS: PCP Nurse Practitioner Family; Visit Provider Internal Medicine Cardiovascular Disease
DX: I35.1 Nonrheumatic aortic (valve) insufficiency (principal)
CPT/HCPCS: 93306

== ENCOUNTER → 2023-09-06 14:46 | Outpatient (BNV) | payer BC, SELFPAY | PROVIDERS: PCP Nurse Practitioner Family; Visit Provider Internal Medicine Cardiovascular Disease | DX: I42.9 Cardiomyopathy, unspecified (principal) | CPT/HCPCS: 93306 ==

== ENCOUNTER 2024-01-10 10:49 | Outpatient (AMB) | payer BC, SELFPAY ==
[2024-01-10 11:26] VITALS: BP 128/70; PULSE 71; TEMP 36.2; O2SAT 98; BMI 25.3
--- NOTE | 2024-01-10 11:26 | MHC.OFFWIV ---
Intake Vital Signs 01/10/24 11:26 Height 6 ft 2 in Weight 197 lb 2 oz BMI 25.3 BP 128/70 Blood Pressure Location Rt brachial Position Sitting Pulse 71 Pulse Source Pulse Oximeter Temp 97.2 F Temp Source Temporal Artery Scan Pulse Oximetry (%) 98 Oxygen Delivery Method Room Air Intake Visit Reasons: EP Sinus infection 2wks Intake Note: Pt is here c/o possible sinus infection for two weeks. Pt states no fevers, chills, cough or headaches. Pt states he has had a runny nose for two weeks. Patient Tobacco Use Status: Never used Tobacco Allergies Penicillins Allergy (Unknown, Verified 01/10/24 11:28) Unknown Do you need a note to return to daycare/school/sports/work: No HPI HPI Comments History of Present Illness Details Patient presents to the walk in for 2 weeks sinus congestion without cough, fever, sore throat or ear ache Endorses thick, yellow/green sputum from nose negative covid test at home has been using OTC nasal spray without improvement Denies fever, chest pain, shortness of breath, palpitations, syncope, weakness Denies headache, ear pain, sore throat. Does endorse tenderness over sinuses [facility] Medical History Degenerative disc disease, lumbar Arthritis COVID-19 vaccine series completed GERD (gastroesophageal reflux disease) Diabetes Kidney stones Dyslipidemia Constipation Dupuytren contracture Surgical History History of lithotripsy History of facial surgery H/O colonoscopy Family History Father HTN (hypertension) CVD (cardiovascular disease) Mother HTN (hypertension) Diabetes mellitus Paternal Grandmother Diabetes mellitus Brother No problems noted. Sister No problems noted. Sister No problems noted. Son No problems noted. Daughter No problems noted. Daughter No problems noted. Social History Housing: House Are you a primary chronic care nurse to a significant other at home: No Do you presently have visiting nurse or other home services: No Patient Tobacco Use Status: Never used Tobacco e-Cigarette/Vaping Use: Never Used Second Hand Smoke Exposure: No Advance Directives Date on File: 12/18/20 Current occupational status: retired Current occupation: right hand Cognitive needs: No Hearing needs: No Vision needs: No Review of Systems Const All systems reviewed & are unremarkable except as noted in HPI and below Physical Exam Vital Signs: Last Vital Signs Temp 97.2 F 01/10/24 11:26 Pulse 71 01/10/24 11:26 BP 128/70 01/10/24 11:26 Pulse Ox 98 01/10/24 11:26 Oxygen Delivery Method Room Air 01/10/24 11:26 BMI result Body Mass Index 25.3 General: awake, alert, oriented. Answers questions appropriately. Fully engaged in examination. Skin: warm, dry, intact HEENT: TMs intact bilaterally, no redness. Posterior pharynx without erythema or exudate. Sclera without icterus or injection. Tenderness to palpation and percussion over ethmoid and maxillary sinuses Cardiac: External chest normal in appearance. Respiratory: LSCTAB. Abdomen: without gross distension. Neurological: Oriented to person, place, time and situation. Thought process intact. Psychiatric: Appropriate mood and affect. Good judgment and insight. Assessment & Plan Assessment & Plan (1) Sinusitis: Code(s): J32.9 - Chronic sinusitis, unspecified Plan Doxycycline 100mg po BID X 7 days, patient with known penicillin allergy Discontinue use of [id number] nasal sprays Rest, drink plenty of fluids, tylenol or motrin as needed. All questions and concerns were answered, patient agrees with the plan Follow up with pcp or in clinic for any new or worsening symptoms. Go to ER for shortness of breath, chest pain, palpitations, weakness, dizziness. Medications: New doxycycline hyclate 100 mg PO BID 7 days 14 caps 0RF Coding Level of Care Code Est Pt Level 3 (72931) Diagnoses Sinusitis J32.9
== END 2024-01-10 14:09 | disposition home or self-care (01) ==
PROVIDERS: PCP Nurse Practitioner Family; Visit Provider Registered Nurse Emergency
DX: J32.9 Chronic sinusitis, unspecified (principal)
CPT/HCPCS: 99213

== ENCOUNTER 2024-02-14 10:48 | Outpatient (AMB) | payer BC, SELFPAY ==
[2024-02-14 11:53] VITALS: BP 150/70; PULSE 75; TEMP 36.3; O2SAT 97; BMI 25.9
--- NOTE | 2024-02-14 11:53 | MHC.OFFWIV ---
Intake Vital Signs 02/14/24 11:53 Height 6 ft 2 in Weight 202 lb BMI 25.9 BP 150/70 H Blood Pressure Location Lt brachial Position Sitting Pulse 75 Pulse Source Pulse Oximeter Temp 97.4 F Temp Source Temporal Artery Scan Pulse Oximetry (%) 97 Oxygen Delivery Method Room Air Intake Visit Reasons: EP Sinus infection [id number] Intake Note: pt is here today for sinus infection started 2 weeks ago Patient Tobacco Use Status: Never used Tobacco Allergies Penicillins Allergy (Unknown, Verified 02/14/24 11:54) Unknown Do you need a note to return to daycare/school/sports/work: No HPI HPI Comments History of Present Illness Details Patient presents to the walk in for 2 weeks sinus congestion Endorses thick, yellow/green sputum from nose 5 weeks ago [facility] and given doxy for sinus infection. states improved for a short time but has since returned Denies fever, chest pain, shortness of breath, palpitations, syncope, weakness Denies headache, ear pain, sore throat. Does endorse tenderness over sinuses continues using afrin at bedtime [facility] Medical History Degenerative disc disease, lumbar Arthritis COVID-19 vaccine series completed GERD (gastroesophageal reflux disease) Diabetes Kidney stones Dyslipidemia Constipation Dupuytren contracture Surgical History History of lithotripsy History of facial surgery H/O colonoscopy Family History Father HTN (hypertension) CVD (cardiovascular disease) Mother HTN (hypertension) Diabetes mellitus Paternal Grandmother Diabetes mellitus Brother No problems noted. Sister No problems noted. Sister No problems noted. Son No problems noted. Daughter No problems noted. Daughter No problems noted. Social History Housing: House Are you a primary career services director to a significant other at home: No Do you presently have visiting nurse or other home services: No Patient Tobacco Use Status: Never used Tobacco e-Cigarette/Vaping Use: Never Used Second Hand Smoke Exposure: No Advance Directives Date on File: 12/18/20 Current occupational status: retired Current occupation: right hand Cognitive needs: No Hearing needs: No Vision needs: No Review of Systems Const All systems reviewed & are unremarkable except as noted in HPI and below Physical Exam Vital Signs: Last Vital Signs Temp 97.4 F 02/14/24 11:53 Pulse 75 02/14/24 11:53 BP 150/70 H 02/14/24 11:53 Pulse Ox 97 02/14/24 11:53 Oxygen Delivery Method Room Air 02/14/24 11:53 BMI result Body Mass Index 25.9 General: awake, alert, oriented. Answers questions appropriately. Fully engaged in examination. Skin: warm, dry, intact HEENT: TMs intact bilaterally, no redness. Posterior pharynx without erythema or exudate. Sclera without icterus or injection. Tenderness to palpation and percussion over ethmoid and maxillary sinuses Cardiac: External chest normal in appearance. Respiratory: LSCTAB. Abdomen: without gross distension. Neurological: Oriented to person, place, time and situation. Thought process intact. Psychiatric: Appropriate mood and affect. Good judgment and insight. Assessment & Plan Assessment & Plan (1) Sinusitis: Code(s): J32.9 - Chronic sinusitis, unspecified Plan Completed course of doxycycline 4 weeks ago with only minimal improvement of symptoms New Rx: Prednisone 40 mg daily for 5 days Patient was advised again of the importance of discontinuing use of [id number] nasal sprays Message sent to PCP requesting referral to ENT Rest, drink plenty of fluids, tylenol or motrin as needed. All questions and concerns were answered, patient agrees with the plan Follow up with pcp or in clinic for any new or worsening symptoms. Go to ER for shortness of breath, chest pain, palpitations, weakness, dizziness. Medications: New prednisone 40 mg (2 x 20 mg) PO DAILY 5 days 10 tabs 0RF Coding Level of Care Code Est Pt Level 3 (09272) Diagnoses Sinusitis J32.9
== END 2024-02-14 12:27 | disposition home or self-care (01) ==
PROVIDERS: PCP Nurse Practitioner Family; Visit Provider Registered Nurse Emergency
DX: J32.9 Chronic sinusitis, unspecified (principal)
CPT/HCPCS: 99213

== ENCOUNTER 2024-02-23 12:44 | Outpatient (REF) | payer BC, SELFPAY ==
--- NOTE | ~2024-02-23 | US_ITS ---
EXAMINATION: US RETROPERITONEAL LIMITED (RENAL ONLY) CLINICAL INFORMATION: Calculus of kidney. COMPARISON: Renal ultrasound 02/11/2022 and 06/23/2021. X-ray abdomen KUB 12/18/2020. CT abdomen and pelvis 12/07/2017. MRI abdomen 04/11/2007. TECHNIQUE: Real-time imaging of the kidneys. FINDINGS: RIGHT KIDNEY: 12.8 x 6.3 x 5.3 cm (SAG x AP x TRV). The kidney is normal in size, contour, and echogenicity. Renal cortical thickness is normal. No renal calculi or hydronephrosis. There is a 2.7 x 1.8 x 2.1 cm upper pole cyst with layering milk of calcium. No imaging follow-up is recommended. LEFT KIDNEY: 12.0 x 6.2 x 5.3 cm (SAG x AP x TRV). The kidney is normal in size, contour, and echogenicity. Renal cortical thickness is normal. No hydronephrosis. There is a 2.8 x 3.3 x 2.9 cm mid renal cyst and a 1.1 x 1.1 x 0.9 cm mid renal cyst. No imaging follow-up is recommended. 0.5 x 0.4 x 0.6 cm nonobstructing calculus is seen in the mid to lower pole. US/US renal BI IMPRESSION: 1. 0.6 cm nonobstructing calculus in the mid to lower pole of the left kidney. 2. Bilateral renal cysts for which no imaging follow-up is recommended.
== END 2024-02-23 12:45 | disposition home or self-care (01) ==
LOC: HO.US 12:44
PROVIDERS: PCP Nurse Practitioner Family; Visit Provider Urology
DX: N20.0 Calculus of kidney (principal)
CPT/HCPCS: 76775

== ENCOUNTER 2024-03-22 14:31 | Outpatient (AMB) | payer MEDICARE, SELFPAY ==
--- NOTE | 2024-03-22 14:56 | A.OFFVIS_ITS ---
Intake Visit Reasons: 6m/US(set) Intake Note: Patient is Present for Follow Up US Results Urology Medication: None Antibiotic Allergies: Penicillins Blood Thinners: None Pharmacy: [facility] Required: No Accompanied by: Self / Same As Patient Allergies Penicillins Allergy (Unknown, Verified 03/22/24 14:56) Unknown Medication List - Last Reconciled 03/22/24 by Raimundo Goodwin MD blood sugar diagnostic twice a day blood sugar diagnostic (Accu-Chek Leanna Plus test strips) Test blood sugar once a day dulaglutide (Trulicity) 3 mg (0.5 mL) subcut QWEEK ibuprofen 600 mg PO Q6-8H PRN lancets As directed losartan 25 mg PO DAILY metformin 1,000 mg PO BID prednisone 40 mg (2 x 20 mg) PO DAILY 5 days tamsulosin (Flomax) 0.4 mg PO BEDTIME 30 days HPI Comments Details: Arnel is a pleasant male. He is a patient of Dr. Cruz. He is seen for the following urologic conditions - Nephrolithiasis - Peyronie's disease - Dupuytren contractures - erectile dysfunction - lower urinary tract symptoms Lower urinary tract symptoms Progressive Urinary hesitancy Weakness of stream Trial Flomax Nephrolithiasis They are here for - further evaluation for nephrolithiasis, . Urolithiasis was diagnosed - 03/20 The patient previously had kidney stones whose composition w - unknown Laboratory investigations include - no recent labs 24 Hour urine evaluation - none on file Prior treatment(s) include - ESWL 07/22 Prior imaging includes - a CT - stone protocol 03/20 4 mm in 1 mm right renal stones - 12/22 KUB left 6 mm renal stone - 08/21 US right 2.4 cm complex cyst - 02/20 renal ultrasound 2.4 cm right complex cyst Bosniak 2, 5 mm Left - 02/22 renal ultrasound multiple cysts, 4 mm left stone Current therapeutic plan will be - surveillance imaging Peyronie's disease Dorsal curvature, mid shaft lesion Does not interfere with intercourse Has no pain - Appears to have stabilized Does have associated Dupuytren's contractures and diabetes PSA 05/21 0.5, 06/22 0.5 Imaging - 11/23 penile ultrasound shows no calcification lesion [facility] Medical History Degenerative disc disease, lumbar Arthritis COVID-19 vaccine series completed GERD (gastroesophageal reflux disease) Diabetes Kidney stones Dyslipidemia Constipation Dupuytren contracture Surgical History History of lithotripsy History of facial surgery H/O colonoscopy Family History Father HTN (hypertension) CVD (cardiovascular disease) Mother HTN (hypertension) Diabetes mellitus Paternal Grandmother Diabetes mellitus Brother No problems noted. Sister No problems noted. Sister No problems noted. Son No problems noted. Daughter No problems noted. Daughter No problems noted. Social History Housing: House Are you a primary career development engineer to a significant other at home: No Do you presently have visiting nurse or other home services: No Patient Tobacco Use Status: Never used Tobacco e-Cigarette/Vaping Use: Never Used Second Hand Smoke Exposure: No Advance Directives Date on File: 12/18/20 Current occupational status: retired Current occupation: right hand Cognitive needs: No Hearing needs: No Vision needs: No Review of Systems Const Denies chills and Denies fever(s) Card Reports no additional complaints and Denies syncope Resp Denies cough GI Denies abdominal pain and Denies heartburn Reports as per HPI and Denies change in libido Neuro Denies syncope Psych Denies change in libido Endo Denies change in libido Physical Exam Const General: cooperative, healthy appearing, comfortable and no acute distress Orientation/consciousness: patient oriented x3 HEENT Face and sinus: Yes normal facial exam Mouth: moist mucous membranes Neck Neck: Yes normal visual inspection, Yes full ROM and Yes trachea midline Chest Chest palpation & inspection: normal inspection of the chest Resp Effort & Inspection: normal respiratory effort, able to speak in complete sentences and no respiratory distress GI Inspection: Yes normal to inspection Back/Spine/Pelvis Cervical Spine: normal cervical lordosis Thoracic/Lumbar Spine: thoracic and lumbar spine normal to inspection Skin General skin exam: no rashes or lesions noted Neuro General: patient oriented x3, gait normal, tone normal and moves all extremities Extrem General: Yes normal to inspection and Yes capillary refill normal Assessment & Plan Assessment & Plan (1) Urinary hesitancy: Code(s): R39.11 - Hesitancy of micturition Category: Medical (2) Weak urinary stream: Code(s): R39.12 - Poor urinary stream Category: Medical Plan Two month follow-up tele Medications: New tamsulosin (Flomax) 0.4 mg PO BEDTIME 30 days 30 tabs 1RF R39.12 - Poor urinary stream Patient Instructions: Imaging studies, laboratory and physical exam results were discussed and reviewed in detail. No major barriers to patient understanding were identified. An opportunity to ask questions regarding the treatment plan was provided. All questions were answered. The patient expressed understanding and agreement with the above treatment plan. The patient is aware they should contact our office by phone for worsening of their current condition or the appearance of new urologic symptoms. Compliance is encouraged with any medications and followup testing that is ordered. It is a privilege to participate in the urologic care of your patient. If you have any questions or concerns regarding treatment for the above conditions, or other urologic issues, please do not hesitate to contact me. The office telephone contact is [phone]. This note is constructed using voice recognition software. While every effort has been made to ensure accuracy switchboard inspector errors may have been included. Yours sincerely, Dr Raimundo Goodwin MD, [facility] - Urology Providers of Expert, Compassionate Care for the Genitourinary System Coding Level of Care Code Est Pt Level 4 (62263) Diagnoses Urinary hesitancy R39.11 Weak urinary stream R39.12
== END 2024-03-22 15:23 | disposition home or self-care (01) ==
PROVIDERS: PCP Nurse Practitioner Family; Visit Provider Urology
DX: R39.11 Hesitancy of micturition (principal); R39.12 Poor urinary stream
CPT/HCPCS: 99214

== ENCOUNTER → 2024-03-22 14:31 | Outpatient (BNVA) | payer BC, SELFPAY | PROVIDERS: PCP Nurse Practitioner Family; Visit Provider Urology | DX: R39.11 Hesitancy of micturition (principal); R39.12 Poor urinary stream | CPT/HCPCS: 99212 ==

== ENCOUNTER 2024-04-13 11:10 | Outpatient (AMB) | payer MEDICARE, SELFPAY ==
--- NOTE | 2024-04-13 11:36 | A.OFFPC_ITS ---
Vital Signs 04/13/24 11:39 Height 6 ft 2 in Weight 194 lb 4 oz BMI 24.9 BP 130/84 Blood Pressure Location Rt brachial Position Sitting Pulse 63 Pulse Source Pulse Oximeter Pulse Oximetry (%) 97 Oxygen Delivery Method Room Air Intake Visit Reasons: 6 month Follow up Intake Note: Patient here for diabetes f/u. Allergies Penicillins Allergy (Unknown, Verified 04/13/24 11:40) Unknown Medication List - Last Reconciled 04/13/24 by CHEYANNE Ambrose blood sugar diagnostic twice a day blood sugar diagnostic (Accu-Chek Leanna Plus test strips) Test blood sugar once a day dulaglutide 1.5 mg (0.5 mL) subcut QWEEK ibuprofen 600 mg PO Q6-8H PRN lancets As directed losartan 25 mg PO DAILY metformin 1,000 mg PO BID tamsulosin (Flomax) 0.4 mg PO BEDTIME 30 days Tobacco use date assessed: 04/13/24 Fall risk assessment: No Falls in past year Last assessed Fall Risk: 04/13/24 Dental Screening Dental Screen Date: 04/13/24 Did you have a dental visit in the last 12 months?: Yes Did you have a dental problem in the last 6 months where you did not have access to dental care?: No Was dental information given to patient?: Patient has dentist HPI 6 month Follow up HPI Details Pt is a diabetic, on an ARB. A1C in office today is 6.5. Microalbumin is up to date. Denies polyuria, polydipsia, does report neuropathy to toes. Pt denies any signs and symptoms of hypoglycemia and does know how to correct it. refuses pneumo vaccines. Pt is interested in a glucose sensor. He has a fear of needles. Will work on this. Due for PSA, will order. Denies dribbling with urination and frequent nocturia. He does report weak stream. His eye exam is up to date. Pt follows up with urology, cardiology, and ortho. [facility] Medical History Degenerative disc disease, lumbar Arthritis COVID-19 vaccine series completed GERD (gastroesophageal reflux disease) Diabetes Kidney stones Dyslipidemia Constipation Dupuytren contracture Surgical History History of lithotripsy History of facial surgery H/O colonoscopy Family History Father HTN (hypertension) CVD (cardiovascular disease) Mother HTN (hypertension) Diabetes mellitus Paternal Grandmother Diabetes mellitus Brother No problems noted. Sister No problems noted. Sister No problems noted. Son No problems noted. Daughter No problems noted. Daughter No problems noted. Social History Housing: House Are you a primary career law clerk to a significant other at home: No Do you presently have visiting nurse or other home services: No Patient Tobacco Use Status: Never used Tobacco e-Cigarette/Vaping Use: Never Used Second Hand Smoke Exposure: No Advance Directives Date on File: 12/18/20 Current occupational status: retired Current occupation: right hand Cognitive needs: No Hearing needs: No Vision needs: No Questionnaire PHQ-9 Over the last 2 weeks, how often have you been bothered by any of the following problems? 53111 - PHQ-9 Billing: Patient declined-do not bill Source: Developed by Drs. Eron Eldridge, Chuy Soriano and colleagues, with an educational gary from [employer]. Thrive Questionnaire Date Thrive assessed: 06/17/22 AUDIT C Alcohol Use Questionnaire (AUDIT-C) 1. How often do you have a drink containing alcohol?: Never 3. How often do you have six or more drinks on one occasion?: Never Total Score: 0 Score Reviewed/Action Taken: No DESIREE-7 AMB Questionnaire DESIREE-7 Date DESIREE - 7 assessed: 06/17/22 Source: Developed by Drs. Eron Eldridge, Chuy Soriano and colleagues, with an educational gary from [employer]. DESIREE-7 Assessment Billing DESIREE-7 Assessment Tool: pt declined-do not bill Review of Systems Const Reports as per HPI Physical exam (Primary Care) Vital Signs: Last Vital Signs Pulse 63 04/13/24 11:39 BP 130/84 04/13/24 11:39 Pulse Ox 97 04/13/24 11:39 Oxygen Delivery Method Room Air 04/13/24 11:39 BMI result Body Mass Index 24.9 Tobacco/Smoking Status: Tobacco use Status Tobacco use date assessed 04/13/24 04/13/24 11:43 Patient Tobacco Use Status Never used Tobacco 04/13/24 11:36 e-Cigarette/Vaping Use Never Used 04/13/24 11:36 Thrive Assessment: Date of Thrive Assessment Date Thrive assessed 06/17/22 04/13/24 11:36 Const General: cooperative Orientation/consciousness: patient oriented x3 Resp Effort & Inspection: normal respiratory effort Auscultation: clear to auscultation bilaterally Cardio Rate: regular rate Rhythm: regular rhythm Heart sounds: S1 normal heart sound present and S2 normal heart sound present Neuro General: patient oriented x3 Extrem Other: bilat feet: + sensation with use of monofilament, feet intact Psych Appearance: grossly normal Mental Status: mental status grossly normal Speech and movement: Normal speech and movement present Affect: normal affect Attitude: cooperative Thought process: Normal thought process present Thought content: Normal thought content present Insight: Good insight present (Psych) Judgement: Good judgement present (Psych) Assessment and Plan Assessment & Plan (1) Diabetes: Comment: FBS range usually 120-140 Code(s): E11.9 - Type 2 diabetes mellitus without complications Plan: Labs ordered (2) Screening PSA (prostate specific antigen): Code(s): Z12.5 - Encounter for screening for malignant neoplasm of prostate Plan: PSA ordered (3) Encounter for routine adult physical exam with abnormal findings: Code(s): Z00.01 - Encounter for general adult medical examination with abnormal findings Plan The patient agreed to the use of a emergency medicine medical director for this encounter. Scribed for CHEYANNE Zuniga by Kay Nina emergency medicine medical director, on 04/13/2024 at 11:45 EST. Orders: Orders Complete Blood Count Auto Diff Today E11.9 - Type 2 diabetes mellitus without complications Prostate Specific Antigen Scr Today Z12.5 - Encounter for screening for malignant neoplasm of prostate Comprehensive [place]. Panel Fast Today E11.9 - Type 2 diabetes mellitus without complications TSH reflex Free T4 Today E11.9 - Type 2 diabetes mellitus without complications UA CC w/rflx Micro + Cult Today E11.9 - Type 2 diabetes mellitus without complications Lipid Panel Today E11.9 - Type 2 diabetes mellitus without complications AMB Hemoglobin A1c Today Z13.9 - Encounter for screening, unspecified AMB EKG-In Office Today Z00.01 - Encounter for general adult medical examination with abnormal findings Medications: Refilled blood sugar diagnostic (Accu-Chek Leanna Plus test strips) Test blood sugar once a day 100 ea 1RF Coding Level of Care Code Est Pt Level 3 (58706) Diagnoses Diabetes E11.9 Screening PSA (prostate specific antigen) Z12.5 Encounter for routine adult physical exam with abnormal findings Z00.01
[2024-04-13 11:39] VITALS: BP 130/84; PULSE 63; O2SAT 97; BMI 24.9
== END 2024-04-13 12:26 | disposition home or self-care (01) ==
PROVIDERS: PCP Nurse Practitioner Family; Visit Provider Nurse Practitioner Family
DX: E11.9 Type 2 diabetes mellitus without complications (principal); Z12.5 Encounter for screening for malignant neoplasm of prostate
CPT/HCPCS: 83036; 99213

== ENCOUNTER 2024-05-24 13:50 | Outpatient (AMB) | payer MEDICARE, SELFPAY ==
--- NOTE | 2024-05-24 13:40 | A.OFFVIS_ITS ---
Intake Visit Reasons: 2M Follow Up-Med Review(Tamsulosin) Intake Note: Patient is Present for 2m Follow Up/ med review Urology Medication: None Antibiotic Allergies: Penicillins Blood Thinners: None Disease Intervention Specialist Required: No Accompanied by: Self / Same As Patient Allergies Penicillins Allergy (Unknown, Verified 05/24/24 13:42) Unknown Medication List - Last Reconciled 05/24/24 by Raimundo Goodwin MD alfuzosin ER 10 mg PO BEDTIME 30 days blood sugar diagnostic (FreeStyle Lite Strips) Test blood sugar once a day blood-glucose meter (FreeStyle Lite Meter kit) As directed dulaglutide 1.5 mg (0.5 mL) subcut QWEEK ibuprofen 600 mg PO Q6-8H PRN lancets (FreeStyle Lancets) Test blood sugar once a day losartan 25 mg PO DAILY metformin 1,000 mg PO BID HPI Comments Details: Arnel is a pleasant male. He is a patient of Dr. Cruz. He is seen for the following urologic conditions - Nephrolithiasis - Peyronie's disease - Dupuytren contractures - erectile dysfunction - lower urinary tract symptoms Telemedicine Evaluation 15 min Consultation [employer] [facility] Video Follow-up Flomax trial Had visual issues Will trial of uses for 2 months Lower urinary tract symptoms Symptoms primarily - Weakness of stream and have been progressive Trial Flomax Nephrolithiasis They are here for - further evaluation for nephrolithiasis, . Urolithiasis was diagnosed - 03/20 The patient previously had kidney stones whose composition w - unknown Laboratory investigations include - no recent labs 24 Hour urine evaluation - none on file Prior treatment(s) include - ESWL 07/22 Prior imaging includes - a CT - stone protocol 03/20 4 mm in 1 mm right renal stones - 12/22 KUB left 6 mm renal stone - 08/21 US right 2.4 cm complex cyst - 02/20 renal ultrasound 2.4 cm right complex cyst Bosniak 2, 5 mm Left - 02/22 renal ultrasound multiple cysts, 4 mm left stone Current therapeutic plan will be - surveillance imaging Peyronie's disease Dorsal curvature, mid shaft lesion Does not interfere with intercourse Has no pain - Appears to have stabilized Does have associated Dupuytren's contractures and diabetes PSA 05/21 0.5, 06/22 0.5 Imaging - 11/23 penile ultrasound shows no calcification lesion PFSH Medical History Degenerative disc disease, lumbar Arthritis COVID-19 vaccine series completed GERD (gastroesophageal reflux disease) Diabetes Kidney stones Dyslipidemia Constipation Dupuytren contracture Surgical History History of lithotripsy History of facial surgery H/O colonoscopy Family History Father HTN (hypertension) CVD (cardiovascular disease) Mother HTN (hypertension) Diabetes mellitus Paternal Grandmother Diabetes mellitus Brother No problems noted. Sister No problems noted. Sister No problems noted. Son No problems noted. Daughter No problems noted. Daughter No problems noted. Social History Housing: House Are you a primary childbirth and infant care teacher to a significant other at home: No Do you presently have visiting nurse or other home services: No Patient Tobacco Use Status: Never used Tobacco e-Cigarette/Vaping Use: Never Used Second Hand Smoke Exposure: No Advance Directives Date on File: 12/18/20 Current occupational status: retired Current occupation: right hand Cognitive needs: No Hearing needs: No Vision needs: No Telehealth Telehealth Telehealth Platform: [facility] Location of provider rendering services: practice address Location of patient: address on file Patient Identification confirmed using: Name, : Yes Telehealth method: video Patient verbally consented to treatment: Yes Patient verbally consented to billing insurance company: Yes Patient informed of any privacy concerns related to visit: Yes Minutes spent on Phone/Video with Pt.: 15 Assessment & Plan Assessment & Plan (1) Urinary hesitancy: Code(s): R39.11 - Hesitancy of micturition Category: Medical (2) Weak urinary stream: Code(s): R39.12 - Poor urinary stream Category: Medical Plan Two month follow-up trial of alfuzosin Medications: New alfuzosin ER Take before bedtime 10 mg PO BEDTIME 30 days 30 tabs 1RF N32.0 - Bladder- neck obstruction, N40.1 - Benign prostatic hyperplasia with lower urinary tract symptoms, R33.9 - Retention of urine, unspecified, R35.1 - Nocturia, R39.12 - Poor urinary stream Patient Instructions: Imaging studies, laboratory and physical exam results were discussed and reviewed in detail. No major barriers to patient understanding were identified. An opportunity to ask questions regarding the treatment plan was provided. All questions were answered. The patient expressed understanding and agreement with the above treatment plan. The patient is aware they should contact our office by phone for worsening of their current condition or the appearance of new urologic symptoms. Compliance is encouraged with any medications and followup testing that is ordered. It is a privilege to participate in the urologic care of your patient. If you have any questions or concerns regarding treatment for the above conditions, or other urologic issues, please do not hesitate to contact me. The office telephone contact is [phone]. This note is constructed using voice recognition software. While every effort has been made to ensure accuracy transport manager errors may have been included. Yours sincerely, Dr Raimundo Goodwin MD, [facility] - Urology Providers of Expert, Compassionate Care for the Genitourinary System Coding Level of Care Code Tele Est Pt Level 4 (69061) Diagnoses Urinary hesitancy R39.11 Weak urinary stream R39.12
== END 2024-05-24 14:12 | disposition home or self-care (01) ==
LOC: HO.HUSH 13:50
PROVIDERS: PCP Nurse Practitioner Family; Visit Provider Urology
DX: R39.11 Hesitancy of micturition (principal); R39.12 Poor urinary stream
CPT/HCPCS: 99442

== ENCOUNTER → 2024-05-24 13:50 | Outpatient (BNVA) | payer MEDICARE, SELFPAY | PROVIDERS: PCP Nurse Practitioner Family; Visit Provider Urology ==

== ENCOUNTER 2024-08-09 12:55 | Outpatient (AMB) | payer MEDICARE, SELFPAY ==
[2024-08-09 12:56] VITALS: BP 120/64; PULSE 76; BMI 25.1
--- NOTE | 2024-08-09 12:56 | A.OFFVIS_ITS ---
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 He is undergoing surgery on left hand Dupuytren's contracture. No background of alcoholism or liver disease. He has been a diabetic and has background of hypertension. Also has family history of coronary disease with his father developing coronary disease and underwent bypass surgery in his 50s. He has been active and plays pickleball and has no exertional chest discomfort or shortness of breath. Denying any other issues currently. Blood pressure is mildly low but he has been asymptomatic and has been taking losartan regularly. 08/11/23: He returns for follow-up. He underwent left hand followed by right hand Dupuytren contracture surgery. He is recovering from the right hand surgery currently. He is saying he has been active and was playing pickleball regularly. No chest discomfort shortness of breath. His echocardiography which showed mild dilation ascending aorta 3.9 cm and mild aortic valve regurgitation. His blood pressure control is good. We discussed about the echocardiogram and plan going forward of monitoring the aorta and aortic valve. 08/09/2024: He is here for follow-up. Repeat echocardiography in 09/20/2023 has shown mild dilation of ascending aorta at 3.8 cm which is unchanged. He had trivial aortic valve regurgitation. He is active and is playing pickle ball regularly without any symptoms with activity. In particular no chest pain or shortness of breath. Blood pressure is well controlled. PENDING SALE TO [facility] Medical History Degenerative disc disease, lumbar Arthritis COVID-19 vaccine series completed GERD (gastroesophageal reflux disease) Diabetes Kidney stones Dyslipidemia Constipation Dupuytren contracture Surgical History History of lithotripsy History of facial surgery H/O colonoscopy Family History Father HTN (hypertension) CVD (cardiovascular disease) Mother HTN (hypertension) Diabetes mellitus Paternal Grandmother Diabetes mellitus Brother No problems noted. Sister No problems noted. Sister No problems noted. Son No problems noted. Daughter No problems noted. Daughter No problems noted. Social History Housing: House Are you a primary lawn caretaker to a significant other at home: No Do you presently have visiting nurse or other home services: No Patient Tobacco Use Status: Never used Tobacco e-Cigarette/Vaping Use: Never Used Second Hand Smoke Exposure: No Advance Directives Date on File: 12/18/20 Current occupational status: retired Current occupation: right hand Cognitive needs: No Hearing needs: No Vision needs: No Review of Systems Const Denies chills, Denies fatigue, Denies fever(s), Denies frequent falls, Denies weakness, Denies weight gain and Denies weight loss ENT Denies dizziness Card Denies chest pain, Denies leg edema, Denies lightheadedness, Denies palpitations, Denies dyspnea and Denies dyspnea on exertion Resp Denies cough, Denies dyspnea and Denies dyspnea on exertion GI Denies hematochezia Musc Denies abnormal gait, Denies muscle weakness, Denies numbness, Denies radiating pain into limb and Denies tingling Neuro Denies abnormal gait, Denies dizziness, Denies frequent falls, Denies numbness, Denies tingling and Denies weakness Endo Denies fatigue and Denies palpitations Physical Exam Vital Signs: Last Vital Signs Pulse 76 08/09/24 12:56 BP 120/64 08/09/24 12:56 BMI result Body Mass Index 25.1 GENERAL APPEARANCE: in no acute distress, pleasant. NECK: no carotid bruit, no jugular venous distention. SKIN: no suspicious lesions, warm and dry. HEART: no murmurs, regular rate and rhythm. LUNGS: clear to auscultation bilaterally. ABDOMEN: soft, nontender. EXTREMITIES: no edema. PERIPHERAL PULSES: equal. NEUROLOGIC: No gross deficits, AAO X 3 Office Procedures EKG Details: Sinus rhythm 76 beats per minute, normal axis, premature ventricular complexes, QTC 407 milliseconds. [id number], Complete Assessment & Plan Assessment & Plan (1) HTN (hypertension): Code(s): I10 - Essential (primary) hypertension Category: Medical (2) Mild dilation of ascending aorta: Code(s): I77.810 - Thoracic aortic ectasia Category: Medical Plan [age] year gentleman who is here for follow-up. He has background history of hypertension and mild ascending aortic dilatation. He has trivial to mild aortic valve insufficiency. Blood pressure is well controlled. He had echocardiography performed 1 year apart we did not show any change in aortic size. He has trivial aortic valve insufficiency by the last echocardiogram. Clinically stable and active without any symptoms with activities. I have advised him to see us as needed. He can have repeat echocardiogram in 3 years. If he has any issues he will reach out to us and we will bring him back for follow-up. Thank you for allowing me to participate in the care of your patient. Please feel free to contact me if you have any questions. Coding Level of Care Code Est Pt Level 4 (26997) Diagnoses HTN (hypertension) I10 Mild dilation of ascending aorta I77.810 CPT Codes EKG - CPT: 19748-[id number], Complete ([id number])
== END 2024-08-09 13:22 | disposition home or self-care (01) ==
PROVIDERS: PCP Nurse Practitioner Family; Visit Provider Internal Medicine Cardiovascular Disease
DX: I10 Essential (primary) hypertension (principal); I77.810 Thoracic aortic ectasia
CPT/HCPCS: 93010; 99214

== ENCOUNTER → 2024-08-09 12:55 | Outpatient (BNVA) | payer MEDICARE, SELFPAY | PROVIDERS: PCP Nurse Practitioner Family; Visit Provider Internal Medicine Cardiovascular Disease | DX: I49.3 Ventricular premature depolarization (principal); I10 Essential (primary) hypertension; I77.810 Thoracic aortic ectasia | CPT/HCPCS: 93005; 99212 ==

== ENCOUNTER 2024-09-12 07:39 | Outpatient (AMB) | payer MEDICARE, SELFPAY ==
[2024-09-12 07:47] VITALS: BP 140/70; PULSE 74; O2SAT 99; BMI 25.2
--- NOTE | 2024-09-12 07:47 | MHC.PC.OV ---
Vital Signs 09/12/24 07:47 Height 6 ft 2 in Weight 196 lb BMI 25.2 BP 140/70 H Blood Pressure Location Lt brachial Position Sitting Pulse 74 Pulse Source Pulse Oximeter Pulse Oximetry (%) 99 Oxygen Delivery Method Room Air Intake Intake Note: Pt is here today for her PE Allergies Penicillins Allergy (Unknown, Verified 09/12/24 07:52) Unknown Medication List - Last Reconciled 09/12/24 by CHEYANNE Ambrose blood sugar diagnostic (FreeStyle Lite Strips) Test blood sugar once a day blood-glucose meter (FreeStyle Lite Meter kit) As directed dulaglutide 1.5 mg (0.5 mL) subcut QWEEK ibuprofen 600 mg PO Q6-8H PRN lancets (FreeStyle Lancets) Test blood sugar once a day losartan 25 mg PO DAILY metformin 1,000 mg PO BID Tobacco use date assessed: 09/12/24 Fall risk assessment: No Falls in past year Last assessed Fall Risk: 09/12/24 Dental Screening Dental Screen Date: 09/12/24 Did you have a dental visit in the last 12 months?: Yes Did you have a dental problem in the last 6 months where you did not have access to dental care?: Yes Was dental information given to patient?: Patient has dentist HPI HPI Comments History of Present Illness Details Pt is here for a PE. Labs have been ordered. Colon screen is up to date. Due for PSA, this has been ordered. Denies dribbling with urination, weak stream, and frequent nocturia (is seeing urology). Pt is a diabetic, on an ARB. A1C in office today is 5.9. Due for microalbumin, will order. Denies polyuria, polydipsia, does report neuropathy to toes. Pt denies any signs and symptoms of hypoglycemia and does know how to correct it. Eye exam is up to date. Pt follows up with urology and cardiology. Pt's blood pressure is elevated today. Will have pt monitor his blood pressure at home and send readings via portal. Pt would not like vaccinations now, he will consider this in the future. [facility] Medical History Degenerative disc disease, lumbar Arthritis COVID-19 vaccine series completed GERD (gastroesophageal reflux disease) Diabetes Kidney stones Dyslipidemia Constipation Dupuytren contracture Surgical History History of lithotripsy History of facial surgery H/O colonoscopy Family History Father HTN (hypertension) CVD (cardiovascular disease) Mother HTN (hypertension) Diabetes mellitus Paternal Grandmother Diabetes mellitus Brother No problems noted. Sister No problems noted. Sister No problems noted. Son No problems noted. Daughter No problems noted. Daughter No problems noted. Social History Housing: House Are you a primary medication care manager to a significant other at home: No Do you presently have visiting nurse or other home services: No Patient Tobacco Use Status: Never used Tobacco e-Cigarette/Vaping Use: Never Used Second Hand Smoke Exposure: No Advance Directives Date on File: 12/18/20 Current occupational status: retired Current occupation: right hand Cognitive needs: No Hearing needs: No Vision needs: No Questionnaire PHQ-9 Over the last 2 weeks, how often have you been bothered by any of the following problems? 1. Little interest or pleasure in doing things: not at all 2. Feeling down, depressed, or hopeless: not at all 3. Trouble falling or staying asleep, or sleeping too much: not at all 4. Feeling tired or having little energy: not at all 5. Poor appetite or overeating: not at all 6. Feeling bad about yourself - or that you are a failure or have let yourself or your family down: not at all 7. Trouble concentrating on things, such as reading the newspaper or watching television: not at all 8. Moving or speaking so slowly that other people could have noticed. Or the opposite - being so fidgety or restless that you have been moving around a lot more than usual: not at all 9. Thoughts that you would be better off or of hurting yourself in some way: not at all Total score: 0 Depression Screening Interpretation: Negative Depression Screening Done: Yes 32812 - PHQ-9 Billing: Yes Source: Developed by Drs. Eron Eldridge, EllyChuy Jacques and colleagues, with an educational gary from [employer]. Thrive Questionnaire Date Thrive assessed: 09/12/24 I am a: Patient What is your living situation today?: I have a steady place to live Within the past 12 months, did the food you bought not last and you didn't have the money to get more?: Never true Within the past 12 months, did you worry whether your food would run out before you got money to buy more?: Never true Do you have trouble paying for medicines?: No Do you have trouble getting transportation to medical appointments?: No Do you have trouble paying your heating and electricity bill?: No Do you have trouble taking care of your child, family member or friend?: No Do you have trouble with day-to-day activities such as bathing, preparing meals, shopping, managing finances, etc.?: No Are you currently unemployed and looking for a job?: No Are you interested in more education?: No THRIVE Score: 0 AUDIT C Alcohol Use Questionnaire (AUDIT-C) 3. How often do you have six or more drinks on one occasion?: Never Total Score: 0 DESIREE-7 AMB Questionnaire DESIREE-7 Date DESIREE - 7 assessed: 09/12/24 Feeling nervous, anxious, or on edge: 0 = Not at all Not being able to stop or control worryin = Not at all Worrying too much about different things: 0 = Not at all Trouble relaxin = Not at all Being so restless that it is hard to sit still: 0 = Not at all Becoming easily annoyed or irritable: 0 = Not at all Feeling afraid as if something awful might happen: 0 = Not at all Total DESIREE-7 score (0-4 normal; 5-9 mild; 10-14 moderate; 15-21 severe): 0 Source: Developed by Drs. Eron Eldridge, Chuy Soriano and colleagues, with an educational gary from [employer]. DESIREE-7 Assessment Billing DESIREE-7 Assessment Tool: DESIREE-7 Assessment 24653 Review of Systems Const Denies chills and Denies fever(s) Eyes Denies blurry vision ENT Denies vertigo, Denies dizziness and Denies sore throat Card Denies chest pain at rest, Denies chest pain with activity, Denies diaphoresis, Denies dyspnea and Denies dyspnea on exertion Resp Denies cough, Denies dyspnea, Denies dyspnea on exertion and Denies wheezing GI Denies abdominal pain, Denies melena, Denies hematochezia, Denies constipation, Denies diarrhea and Denies loose stools Denies hematuria Musc Denies numbness and Denies tingling Skin/Breast Denies lesions Neuro Denies vertigo, Denies dizziness, Denies numbness and Denies tingling Psych Denies anxiety, Denies depression, Denies homicidal ideation, Denies suicidal ideation and Denies other (substance abuse) Aller/Immun Denies wheezing Physical exam (Primary Care) Vital Signs: Last Vital Signs Pulse 74 09/12/24 07:47 BP 140/70 H 09/12/24 07:47 Pulse Ox 99 09/12/24 07:47 Oxygen Delivery Method Room Air 09/12/24 07:47 BMI result Body Mass Index 25.2 Tobacco/Smoking Status: Tobacco use Status Tobacco use date assessed 09/12/24 09/12/24 07:48 Patient Tobacco Use Status Never used Tobacco 09/12/24 07:48 e-Cigarette/Vaping Use Never Used 09/12/24 07:48 PHQ-9: PHQ-9 Score PHQ-9: Total score 0 09/12/24 08:00 Depression Screening Interpretation: Negative Thrive Assessment: Date of Thrive Assessment Date Thrive assessed 09/12/24 09/12/24 07:51 Const General: cooperative Nutritional Appearance: well nourished Orientation/consciousness: patient oriented x3 HENMT Head: Yes normal to inspection, Yes normocephalic and Yes atraumatic Ears: TM's normal bilaterally Eyes General: appearance normal, both eyes and all related structures Alignment and Position: alignment normal and position normal Neck Neck: Yes normal visual inspection, Yes no lymphadenopathy and Yes supple Resp Effort & Inspection: normal respiratory effort Auscultation: clear to auscultation bilaterally Cardio Rate: regular rate Rhythm: regular rhythm Heart sounds: S1 normal heart sound present, S2 normal heart sound present and no murmurs GI Palpation (GI): Soft to palpation and nontender Auscultation: normal bowel sounds Male General Exam: Yes normal external exam Penis: normal penis Scrotum: scrotum normal, testes descended bilaterally and no inguinal hernias Testes: no testicular mass Skin Rashes: no rashes Neuro General: patient oriented x3, moves all extremities, no focal motor deficits and deep tendon reflexes 2+ bilaterally Romberg Test: Negative Extrem Right lower extremity: no edema Left lower extremity: no edema Psych Appearance: grossly normal Mental Status: mental status grossly normal Speech and movement: Normal speech and movement present Affect: normal affect Attitude: cooperative Thought process: Normal thought process present Thought content: Normal thought content present Insight: Good insight present (Psych) Judgement: Good judgement present (Psych) Results AMB Hemoglobin A1c AMB Hemoglobin A1c 5.9 % Last Edit by Norma Brown CMA on 09/12/24 08:09 Coding Level of Care Code Est Pt Prev Care >65y(85507) Diagnoses Diabetes E11.9 Physical exam Z00.00 HTN (hypertension) I10 Additional Codes PHQ-9 - 92493 - PHQ-9 Billing: Yes ([id number]) DESIREE-7 Assessment Billing - DESIREE-7 Assessment Tool: DESIREE-7 Assessment 04404 ([id number]) Assessment & Plan Assessment & Plan (1) Diabetes: Code(s): E11.9 - Type 2 diabetes mellitus without complications Category: Medical Plan: Microalbumin ordered (2) Physical exam: Code(s): Z00.00 - Encounter for general adult medical examination without abnormal findings Category: Medical Plan: Labs already ordered (3) HTN (hypertension): Code(s): I10 - Essential (primary) hypertension Category: Medical Plan: pt will send values via portal, from home. Plan The patient agreed to the use of a claim review medical director for this encounter. Scribed for CHEYANNE Zuniga by iban Goodson scribe, on 09/12/2024 at 07:55 EST. Orders: Orders Microalbumin, Random (w Creat) Today E11.9 - Type 2 diabetes mellitus without complications AMB Hemoglobin A1c Today Z13.9 - Encounter for screening, unspecified
== END 2024-09-12 08:19 | disposition home or self-care (01) ==
PROVIDERS: PCP Nurse Practitioner Family; Visit Provider Nurse Practitioner Family
DX: Z00.00 Encounter for general adult medical examination without abnormal findings (principal); E11.9 Type 2 diabetes mellitus without complications; I10 Essential (primary) hypertension

== ENCOUNTER → 2024-09-12 07:39 | Outpatient (BNVA) | payer MEDICARE, SELFPAY | PROVIDERS: PCP Nurse Practitioner Family; Visit Provider Nurse Practitioner Family | DX: Z00.00 Encounter for general adult medical examination without abnormal findings (principal); E11.9 Type 2 diabetes mellitus without complications; I10 Essential (primary) hypertension | CPT/HCPCS: 83036; 96127; 99397 ==

== ENCOUNTER 2024-09-22 08:38 | Outpatient (REF) | payer MEDICARE, SELFPAY ==
[2024-09-22 08:57] LABS: MANUAL DIFF FLAG NO
[2024-09-22 09:08] LABS: Basophils Percent Auto 0.4 % (0-2); Eosinophils Absolute Auto 0.1 X10*3/uL (0.0-0.4); Eosinophils Percent Auto 1.3 % (0-4); Hematocrit 39.3 % (42.0-52.0); Hemoglobin 14.2 g/dl (14.0-18.0); Imm Gran Abs Auto 0.03 X10*3/uL (0.00-0.03); Imm Gran Pct Auto 0.4 % (0.0-0.4); Lymphocytes Absolute Auto 1.2 X10*3/uL (1.2-4.9); Lymphocytes Percent Auto 14.6 % (20-40); Mean Corpuscular HGB Conc 36.1 g/dl (31.0-36.0); Mean Corpuscular Hemoglobin 30.6 pg (27.0-33.0); Mean Corpuscular Volume 84.7 fL (80.0-98.0); Monocytes Absolute Auto 0.5 X10*3/uL (0.1-1.2); Monocytes Percent Auto 5.4 % (2-11); Neutrophils Absolute Auto 6.5 x10*3/uL (2.0-8.3); Neutrophils Percent Auto 77.9 % (45-73); Platelet Count 178 X10*3/uL (160-400); Red Blood Count 4.64 X10*6/uL (4.60-5.80); Red Cell Distribution Width 12.7 % (11.0-16.0); White Blood Count 8.3 X10*3/uL (4.8-10.8)
[2024-09-22 09:35] LABS: Appearance Urine Clear; Color Urine Yellow; Glucose Urine UA Negative (Negative); Leukocyte Esterase Urine Negative (Negative); Nitrite Urine Negative (Negative); Urine Blood Negative (Negative); Urine Ketones Negative (Negative); Urine Protein Negative (Neg-Trace)
[2024-09-22 10:02] LABS: Creatinine Urine 120.51 mg/dL; Microalbum/Creatinine Ratio Ur 14.1 ug/mg cr (<30)
[2024-09-22 10:06] LABS: Alanine Aminotransferase 22 U/L (0-40); Albumin Level 4.5 g/dL (3.5-5.0); Alkaline Phosphatase 72 U/L (39-117); Anion Gap 11 (12-20); Aspartate Amino Transferase 18 U/L (5-37); Bilirubin Total 0.7 mg/dL (0.0-1.0); Blood Urea Nitrogen 23 mg/dL (9-16); Calcium 9.6 mg/dL (8.4-10.2); Carbon Dioxide 25 mmol/L (22-29); Chloride 107 mmol/L (96-108); Cholesterol 142 mg/dL (<200); Estimated Glomerular Filt Rate > 60; Glucose Fasting 134 mg/dL (60-99); HDL Cholesterol 48 mg/dL (>40); LDL Cholesterol Calculated 73 mg/dL (<100); Potassium 4.5 mmol/L (3.3-5.1); Sodium 138 mmol/L (135-145); Total Protein 6.9 g/dL (6.5-8.0); Triglycerides 107 mg/dL (<150)
[2024-09-22 10:20] LABS: TSH reflex Free T4 1.79 uIU/mL (0.32-4.0)
[2024-09-22 10:21] LABS: Prostate Specific Antigen Scr 0.57 ng/mL (<0.05-4.0)
== END 2024-09-22 08:39 | disposition home or self-care (01) ==
LOC: HO.LAB 08:38
PROVIDERS: PCP Nurse Practitioner Family; Visit Provider Nurse Practitioner Family
DX: E11.9 Type 2 diabetes mellitus without complications (principal); Z12.5 Encounter for screening for malignant neoplasm of prostate
CPT/HCPCS: 36415; 80053; 80061; 81003; 82043; 82570; 84153; 84443; 85025

== ENCOUNTER 2024-11-02 10:11 | Outpatient (REF) | payer MEDICARE, SELFPAY ==
--- NOTE | ~2024-11-02 | XR_ITS ---
EXAMINATION: XR CERVICAL SPINE CLINICAL INFORMATION: M54.2 - Cervicalgia COMPARISON: None available. TECHNIQUE: 3 views of the cervical spine were obtained. FINDINGS: Submitted for interpretation on November 08, 2024. Craniocervical junction is intact. No acute cortical disruption or gross malalignment. No lytic or blastic lesions. Upper airway is patent. XR/XR cervical spine 3V IMPRESSION: No acute fracture or listhesis. Electronically signed by: Hernesto Velez MD 11/08/2024 08:35 AM [facility]
--- NOTE | ~2024-11-02 | XR_ITS ---
EXAMINATION: XR KNEE 3 VIEWS LEFT HISTORY: M25.50 - Pain in unspecified joint COMPARISON: There are no prior studies available for comparison. FINDINGS: Three views of the left knee are submitted. Osseous mineralization is normal. There is no fracture or dislocation. The joint spaces are preserved. There is a trace suprapatellar joint effusion. XR/XR knee LT 3V IMPRESSION: Trace joint effusion. Otherwise unremarkable examination of the left knee. Electronically signed by: Eron Holloway MD 11/08/2024 08:57 AM SUZAN
--- OUTSIDE RECORDS SUMMARY | 2024-11-02 10:58 | XMS_ITS | Patient Health Record ---
Author Organization [facility] Address [address] [place] [address] Care Team Providers Care Glass Bender Name Role Phone BRIANDA LEBRON Primary Care Provider Eron Riddle [phone] ALLERGIES Allergen (clinical drug ingredient) Drug/Non Drug Allergy documented on EMR Reaction Allergy Type Onset Date Status Penicillin Unknown Drug Allergy Active REASON FOR REFERRAL No Information MEDICATIONS Medication SIG (Take, Route, Frequency, Duration) Notes Start Date End Date Status Prevacid 30 MG 1 capsule Orally Onc e a day for 30 day(s) PRN Active Trulicity 0.75 MG/0.5ML as directed Subc utaneous once a week Active metFORMIN HCl 1000 MG 1 tablet with a me al Orally BID Active Ibuprofen PRN Active Multi Vitamin/Minerals - as directed Ora lly once a day Active Losartan Potassium 25 MG Orally Active Pentoxifylline ER 400 MG Orally Active Sildenafil Citrate 50 MG Orally Active Multivitamin Active IMMUNIZATIONS Vaccine Route Administration Date Status Comme nts Influenza Unknown 10/18/2019 Refused Influenza Unknown 02/12/2021 Refused SOCIAL HISTORY Sex Assigned At : Social History Observation Description Sex Assigned At Unknown PROBLEMS Problem Type ICD Code Onset Dates Problem Status W/U Status Risk SNOMED Code Notes Problem Preprocedural examination (Z01.818) Active confirmed 16871604 Problem History of adenomatous polyp of colon (Z86.010) Active confirmed 800156644 Problem Encounter for screening for malignant neoplasm of colon (Z12.11) Active confirmed 801456015 Problem Encounter for screening for malignant neoplasm of rectum (Z12.12) Active confirmed Screening for malignant neoplasm of rectum (398383197) Problem Constipation, unspecified constipation type (K59.00) Active confirmed 16343205 Problem Abdominal pain, periumbilic (R10.33) Active confirmed 595437887 Problem Gastroesophageal reflux disease, esophagitis presence not specified (K21.9) Active confirmed 349392093 PLAN OF TREATMENT Pending Test Test Name Order Date Pathology 03/24/2021 Future Test Test Name Order Date COLONOSCOPY 02/25/2016 UPPER GI ENDOSCOPY 02/12/2021 COLONOSCOPY 02/12/2021 Insurance Providers Payer Name Payer Address Payer Phone Subscriber Number Group Number Insured Name Patient Relationship to Insured Coverage Start Date Coverage End Date [facility] [address] [place], [place] [id number] [phone] [id number] LENIN OMRA Self - patient is the insured MEDICAL (GENERAL) HISTORY Medical History History ICD Code Colonoscopy 03-12-2011--1 cm tubular adenoma removed, mild sigmoid diverticulosis History of elevated LFT's due to mono--r esolved Hypertension Denies MN,CVA,Lung disease,renal disease Neg. colonoscopy in 06/2016-- hyperplastic polyp, diverticulosis, internal hemorrhoid GERD NIDDM Peyronie's Disease Dupuytrenne's in both hands Kidney stone-s/p ESWL Surgical History Surgery Date(Month/Year) Facial surgery related to an accident Leg surgery Right shoulder
== END 2024-11-02 10:12 | disposition home or self-care (01) ==
LOC: HO.HOSX 10:11
PROVIDERS: PCP Nurse Practitioner Family; Visit Provider Physical Medicine & Rehabilitation
DX: M25.50 Pain in unspecified joint (principal); M54.2 Cervicalgia; M54.12 Radiculopathy, cervical region; M79.18 Myalgia, other site
CPT/HCPCS: 72040; 73562; 99212

== ENCOUNTER 2024-11-02 10:11 | Outpatient (AMB) | payer MEDICARE, SELFPAY ==
--- NOTE | 2024-11-02 10:12 | MHC.OFFVIS ---
Intake Visit Reasons: OV, L shoulder/neck follow up Intake Note: Arnel is a 64 year old right hand dominant male who presents today for a follow up of his left shoulder pain and neck pain. Patient reports he might of moved a certain way when he was Playing pickle ball or working in his yard. He mentions that his pain has been going on for 12 weeks. Patient has tried Motrin with mild relief. He mentions that his pain goes down though his whole left arm. Allergies Penicillins Allergy (Unknown, Verified 11/02/24 10:20) Unknown Medication List - Last Reconciled 11/02/24 by Liz Small MD blood sugar diagnostic (FreeStyle Lite Strips) Test blood sugar once a day blood-glucose meter (FreeStyle Lite Meter kit) As directed dulaglutide 1.5 mg (0.5 mL) subcut QWEEK ibuprofen 600 mg PO Q6-8H PRN lancets (FreeStyle Lancets) Test blood sugar once a day losartan 25 mg PO DAILY metformin 1,000 mg PO BID HPI Comments Details: He did get better since the last time I saw him 08/2023. At that time, he was complaining of left shoulder pain and had some component of trapezius pain. He had left shoulder injection with Katherine that improved the pain eventually. Doing well until 08/2024, 3 months ago. Started having pain during a pickle ball game, with left sided neck pain, also low back pain at that time. And left sided zing going from left shoulder and scapular area. These zingers have continued, almost daily, since then, lasting only few seconds, going to fingers with numbness. No constant pain or constant numbness, no weakness. Shoulder ROM and neck within ROM. No headaches. No gait change except separate left knee pain with running. No bladder/bowel changes. Right handed, DM and HTN. [facility] Medical History Degenerative disc disease, lumbar Arthritis COVID-19 vaccine series completed GERD (gastroesophageal reflux disease) Diabetes Kidney stones Dyslipidemia Constipation Dupuytren contracture Surgical History History of lithotripsy History of facial surgery H/O colonoscopy Family History Father HTN (hypertension) CVD (cardiovascular disease) Mother HTN (hypertension) Diabetes mellitus Paternal Grandmother Diabetes mellitus Brother No problems noted. Sister No problems noted. Sister No problems noted. Son No problems noted. Daughter No problems noted. Daughter No problems noted. Social History Housing: House Are you a primary rn complex care to a significant other at home: No Do you presently have visiting nurse or other home services: No Patient Tobacco Use Status: Never used Tobacco e-Cigarette/Vaping Use: Never Used Second Hand Smoke Exposure: No Advance Directives Date on File: 12/18/20 Current occupational status: retired Current occupation: right hand Cognitive needs: No Hearing needs: No Vision needs: No Physical Exam Constitutional: Patient appears to be in no acute distress, well nourished and well developed. Patient was appropriately conversant and oriented. Good historian. MSK: Inspection reveals appropriate head and neck positioning. No pain with palpation over the neck musculature. Tight on left rhomboids. Some tenderness in left upper trapezius. Cervical ROM was full. Spurling's sign positive left with singing/numbness down to fingers. Bilateral shoulder, elbow and wrist ROM WNL. No ligamentous laxity or crepitance. No increased effusion. No scapular winging. Negative Torres sign. Negative empty can sign. Left knee does not show any effusion, redness or warmth. Indicates tenderness on left medial joint line. Negative tenderness/pain on patellar grind. Good patellar tracking. Negative pain on varus or valgus stress. Strength is 5/5 in all muscle groups tested. No increased tone noted. Neurological: Neurologic examination of the upper and lower extremities was nonfocal with intact sensation, muscle stretch reflexes and without focal motor deficits . Beaulieu?s negative bilaterally. Babinski was down going bilaterally. Clonus was negative. Gait is non-antalgic without loss of balance. Results Reviewed Results Reviewed: Reviewed notes from PCP and Cardiology. Assessment & Plan Assessment & Plan (1) Cervical radiculitis: Code(s): M54.12 - Radiculopathy, cervical region Category: Medical (2) Neck pain on left side: Code(s): M54.2 - Cervicalgia Category: Medical (3) Myofascial pain: Code(s): M79.18 - Myalgia, other site Category: Medical Plan Concern for new onset left sided stingers, suggestive of cervical radiculitis. Positive left Spurling sign, but rest of exam negative for myelopathy. Tightness over left rhomboids, possibly secondary myofascial pain. We will start with cervical x-rays today. Depending on results, it may be very reasonable to obtain cervical MRI. Referring him to physical therapy, to work on myofascial pain. Can trial cervical traction as well. Discussed possible muscle relaxants at night. We decided to defer for now. Patient may take ibuprofen as needed. Separate issue of left knee pain. No acute signs of inflammation. We will do left knee x-ray today as well. Assessment and plan discussed with patient, and patient was agreeable. All questions were answered thoroughly. We will discuss with patient after x-ray results. Liz Small MD, ESTHER Board Certified, [place] [employer] and Rehabilitation (ABPMR) Board Certified, [place] [employer] Electro[employer] (ABEM) Orders: Orders XR cervical spine 3V Today M54.2 - Cervicalgia PT Evaluation and Treatment Today M54.12 - Radiculopathy, cervical region, M54.2 - Cervicalgia, M79.18 - Myalgia, other site XR knee LT 3V Today M25.50 - Pain in unspecified joint Coding Level of Care Code Est Pt Level 4 (55523) Diagnoses Cervical radiculitis M54.12 Neck pain on left side M54.2 Myofascial pain M79.18
== END 2024-11-02 11:08 | disposition home or self-care (01) ==
PROVIDERS: PCP Nurse Practitioner Family; Visit Provider Physical Medicine & Rehabilitation
DX: M54.12 Radiculopathy, cervical region (principal); M54.2 Cervicalgia; M79.18 Myalgia, other site
CPT/HCPCS: 99213

== ENCOUNTER → 2024-11-02 10:54 | Outpatient (BNV) | payer MEDICARE, SELFPAY | PROVIDERS: PCP Nurse Practitioner Family; Visit Provider Radiology Diagnostic Radiology | DX: M54.2 Cervicalgia (principal); M25.562 Pain in left knee | CPT/HCPCS: 72040; 73562 ==

== ENCOUNTER 2024-12-04 09:43 | Outpatient (AMB) | payer MEDICARE, SELFPAY ==
--- NOTE | 2024-12-04 09:44 | MHC.OFFVIS ---
Vital Signs 12/04/24 09:49 Height 6 ft 2 in Weight 196 lb BMI 25.2 Intake Visit Reasons: New Prob - Left Knee Pain Intake Note: Arnel is a 64 year old male who presents today for a new problem visit with complaints of left knee pain. Patient reports that his pain started back July,. He notices his pain worsens when running. Patient takes Motrin with some relief. Denies prior injuries or surgeries to the left knee. Allergies Penicillins Allergy (Unknown, Verified 12/04/24 09:49) Unknown HPI HPI New Prob - Left Knee Pain: Details: Arnel is a 64 year old male who presents today for a new problem visit with complaints of left knee pain. Patient reports that his pain started back July,. He notices his pain worsens when running. Patient takes Motrin with some relief. Denies prior injuries or surgeries to the left knee. The pain has been improving. It localizes to the medial aspect of his left knee. [facility] Medical History Degenerative disc disease, lumbar Arthritis COVID-19 vaccine series completed GERD (gastroesophageal reflux disease) Diabetes Kidney stones Dyslipidemia Constipation Dupuytren contracture Surgical History History of lithotripsy History of facial surgery H/O colonoscopy Family History Father HTN (hypertension) CVD (cardiovascular disease) Mother HTN (hypertension) Diabetes mellitus Paternal Grandmother Diabetes mellitus Brother No problems noted. Sister No problems noted. Sister No problems noted. Son No problems noted. Daughter No problems noted. Daughter No problems noted. Social History Housing: House Are you a primary critical care registered nurse to a significant other at home: No Do you presently have visiting nurse or other home services: No Patient Tobacco Use Status: Never used Tobacco e-Cigarette/Vaping Use: Never Used Second Hand Smoke Exposure: No Advance Directives Date on File: 12/18/20 Current occupational status: retired Current occupation: right hand Cognitive needs: No Hearing needs: No Vision needs: No Physical Exam Vital Signs: BMI result Body Mass Index 25.2 Extrem Other: Full range of motion left knee. Negative Layne's. No joint line pain. Tenderness to palpation over the pes anserinus bursa. Results Reviewed Results Reviewed: I personally reviewed relevant radiographs. Mild osteoarthritis of the left knee affecting the anterior compartment most significantly. Assessment & Plan Assessment & Plan (1) Pes anserinus bursitis: Code(s): M70.50 - Other bursitis of knee, unspecified knee Category: Medical Plan: 64-year-old active gentleman with pes anserinus bursitis. He is improving on his own and no treatment is warranted at this time. Should he worsen we can consider injections. I counseled him on icing and stretching. Coding Level of Care Code Est Pt Level 3 (80121) Diagnoses Pes anserinus bursitis M70.50
[2024-12-04 09:49] VITALS: BMI 25.2
== END 2024-12-04 11:15 | disposition home or self-care (01) ==
PROVIDERS: PCP Nurse Practitioner Family; Visit Provider Orthopaedic Surgery
DX: M70.50 Other bursitis of knee, unspecified knee (principal); M17.12 Unilateral primary osteoarthritis, left knee
CPT/HCPCS: 99213

== ENCOUNTER → 2024-12-04 09:43 | Outpatient (BNVA) | payer MEDICARE, SELFPAY | PROVIDERS: PCP Nurse Practitioner Family; Visit Provider Orthopaedic Surgery | DX: M70.52 Other bursitis of knee, left knee (principal) | CPT/HCPCS: 99212 ==

== ENCOUNTER 2024-12-15 12:56 | Outpatient (RCR) | payer MEDICARE, SELFPAY ==
[2024-11-28 07:29] VITALS: BP 130/70; PULSE 78; O2SAT 98
--- NOTE | 2024-11-28 15:33 | MHC.PT.EP ---
[facility] [place] [facility] [place] [facility] [place] [facility] [address] Tarik Arroyo [address] [phone] F: [phone] F: [phone] F: [phone] F: [phone] Physical Therapy Plan of Care Date of Evaluation: 11/28/24 Date of Surgery: Diagnosis: M54.12 Radiculopathy, cervical region M54.2 Cervicalgia, M79.28 Myalgia, other site Cervical radiculitis *Neck pain on left side, myofascial pain, CORE at [place], Please work on trapezius and rhomboids, trial cervical traction date of script 11/02/24 by Liz He MD; PT eval and treat. Assessment: Pt is a 64 y/o RHD male, referred to PT, M54.12 Radiculopathy, cervical region M54.2 Cervicalgia, M79.28 Myalgia, other site Cervical radiculitis *Neck pain on left side, myofascial pain, CORE at [place], Please work on trapezius and rhomboids, trial cervical traction date of script 11/02/24 by Liz He MD; PT eval and treat Pt expressing sx which began earlier than August 2024 after playing pickleball had a quick sharp turn to the left which caused sx down his arm and into his back (which he states has since improved). He also report lifting a large can over his head to dump yardwork. Pt was having radiating sx into trapezius and down arm. 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 He would like to gain some exercise to prevent symptoms from returning. Pt would benefit from attending skilled PT services at a frequency of 1-2x/week x 4-6 weeks to address impairments, implement HEP, and restore functional mobility tolerance to resume pickleball and recreational activities MOD I. (At this time due to reduction in sx pt is requesting to trial 1x/week PMH significant for: Degenerative disc disease, lumbar Arthritis COVID-19 vaccine series completed GERD (gastroesophageal reflux disease) Diabetes Kidney stones Dyslipidemia Constipation Dupuytren contracture History of lithotripsy History of facial surgery H/O colonoscopy. He reports on/off sx of R tennis elbow and was shown some gentle forearm/wrist stretches for flexion/extension. Post evaluation, he was guided for cervical rotation/upper trap/levator trap stretches shown options of supine and in standing (educated re: goals of gentle stretches), pec minor stretch over rolled bath towel in supine, standing isometric scap squeezes against foam roller, and SL ER for RTC strength. He was issued educational handout for all exercises. He had MRI completed yesterday outside of [facility] ([facility]). Pt was taped for trial of tennis elbow support strapping (two I strips). He was educated re: CFM 1-2 minutes for elbow, stretching wrist forearm, and the benefit of icing after CFM. Frequency and Duration: The patient will be seen 2x/week x 6 weeks Short Term Goals: 1. Pt will express centralization of the L UE to height of the shoulder. (IR: past week has been but prior was into 1-3 digits). 2. Pt will be initiated in a gentle flexibility program for upper body. (IR: [facility] program currently) 3. Pt will express 25% reduction in L UE pain. (IR: past week has been okay but prior was 2-3/). 4. Strength lower trap 4+/5 L UE. (IR: 3+/5 L UE). Nursing Home Goals: 1. I HEP. (IR: [facility] currently). 2. Pt will demonstrate MOD I use of L UE with no parathesias/radiating sx. (IR:on/off 3. Pt will demonstrate strength of rhomboids 5/5 B. (IR: 3+/5) 4. Pt will resume pickleball MOD I with good I HEP. (IR: 5. Strength lower trap 5/5 L UE. (IR: 3+/5). Treatment Plan: Modalities to reduce pain, spasms and effusion. Manual therapy to restore motion and function. Therapeutic exercise to improve strength and flexibility. Neuromuscular re-education for posture and balance. Therapeutic activities to return to functional activities of daily living. Electronically signed by: Alicia Oscar PT, DPT Please sign and return to therapist. Thank you for your referral.
== END 2025-07-26 15:04 | disposition home or self-care (01) ==
LOC: HO.PTWFD 12:56
PROVIDERS: PCP Nurse Practitioner Family; Visit Provider Nurse Practitioner Family
DX: M54.12 Radiculopathy, cervical region (principal); M54.2 Cervicalgia; M79.18 Myalgia, other site
CPT/HCPCS: 97110; 97140; 97162

== ENCOUNTER 2024-12-20 09:06 | Outpatient (AMB) | payer MEDICARE, SELFPAY ==
--- OUTSIDE RECORDS SUMMARY | 2024-12-20 09:18 | XMS_ITS | Patient Health Record ---
Author Organization [facility] Address [address] [place] [address] Care Team Providers Care Director Industrial Name Role Phone BRIANDA LBERON Primary Care Provider Eron Riddle [phone] ALLERGIES Allergen (clinical drug ingredient) Drug/Non Drug [...] Notes Problem Preprocedural examination (Z01.818) Active confirmed 57874206 Problem History of adenomatous polyp of colon (Z86.010) Active confirmed 181912202 Problem Encounter for screening for malignant neoplasm of colon (Z12.11) Active confirmed 869840449 Problem Encounter for screening for malignant neoplasm of rectum (Z12.12) Active confirmed Screening for malignant neoplasm of rectum (886878920) Problem Constipation, unspecified constipation type (K59.00) Active confirmed 90272265 Problem Abdominal pain, periumbilic (R10.33) Active confirmed 928008734 Problem Gastroesophageal reflux disease, esophagitis presence not specified (K21.9) Active confirmed 006075782 PLAN OF TREATMENT Pending Test Test Name Order Date Pathology 03/24/2021 Future Test Test Name Order Date COLONOSCOPY 02/25/2016 UPPER GI ENDOSCOPY 02/12/2021 COLONOSCOPY 02/12/2021 Insurance Providers Payer Name Payer Address Payer Phone Subscriber Number Group Number Insured Name Patient Relationship to Insured Coverage Start Date Coverage End Date [facility] [address] [place], [place] [id number] LENIN MORA Self - patient is the insured MEDICAL (GENERAL) HISTORY Medical History History ICD Code Colonoscopy 03-12-2011--1 cm tubular adenoma removed, mild sigmoid diverticulosis History of elevated LFT's due to mono--r esolved Hypertension Denies HI,CVA,Lung disease,renal disease Neg. colonoscopy in 06/2016-- hyperplastic polyp, diverticulosis, internal hemorrhoid GERD NIDDM Peyronie's Disease Dupuytrenne's in both hands Kidney stone-s/p ESWL Surgical History Surgery Date(Month/Year) Facial surgery related to an accident Leg surgery Right shoulder
[2024-12-20 09:38] VITALS: BMI 25.2
--- NOTE | 2024-12-20 09:38 | A.SPINEOV_ITS ---
Vital Signs 12/20/24 09:38 Height 6 ft 2 in Weight 196 lb BMI 25.2 Intake Visit Reasons: cervical stenosis Intake Note: Mr. Gómez is here today c/o neck pain that radiates down Left arm causing tingling of the fingers. Senior Policy Advisor Required: No Allergies Penicillins Allergy (Unknown, Verified 12/20/24 09:39) Unknown Physical Exam Vital Signs: BMI result Body Mass Index 25.2 Assessment & Plan Assessment & Plan (1) Herniation of cervical intervertebral disc with radiculopathy: Code(s): M50.10 - Cervical disc disorder with radiculopathy, unspecified cervical region Category: Medical Plan Dear colleague Thank you for referring Arnel Gómez to the office today with a chief complaint of resolving left arm discomfort. HPI: This 64-year-old male was playing pickleball in August when the ball hit his safety glasses resulting in an extension of his neck. He immediately felt pain in his neck that was followed by radiation into mostly the left upper arm and hand. He denies severe pain or weakness. Fortunately, the symptoms have mostly resolved. He denies other symptoms of urge incontinence, balance problems were difficulty using his hand. The following conservative treatment options were: Physical therapy PMH: Hypertension, type 2 diabetes Medications: Trulicity, metformin and losartan Allergies: Penicillin Social history: Retired. Nonsmoker Physical Exam: Pleasant male. Height 62 weight 196 lb. He is awake and alert. There are no motor deficits. Sensory exam is intact. Normal reflexes. No pathological reflexes. Gait is undisturbed. Radiological Studies: MRI done at [facility] on 11/27/2024. The MRI is a poor quality due to artifacts. The main finding is a foraminal disc herniation at C5-6 compressing the left C6 nerve root and a left paracentral disc herniation at C6-7 compressing the left C7 nerve root. No critical central stenosis is seen. Impression/Plan: This patient developed a cervical radiculopathy from a disc herniation. C6-7 disc herniation seems to be the culprit of his symptoms although the C6 nerve root can not be excluded. The good news is that the symptoms have mostly disappeared and neurological exam is normal and therefore surgery is not indicated. He is allowed to continue his full activities. He will return to my office if neurological symptoms or pain develops. Thank you for allowing me to participate in your patients care. total time spent was 50 minutes in counseling ,coordination of plan, personal review of imaging, surgical decision making and subsequent plan Elliot Jarquin MD, PhD Spine Fellowship Trained Neurosurgeon Director, [facility] Coding Level of Care Code New Pt Level 4 (91312) Diagnoses Herniation of cervical intervertebral disc with radiculopathy M50.10
== END 2024-12-20 10:04 | disposition home or self-care (01) ==
PROVIDERS: PCP Nurse Practitioner Family; Referring Provider Physical Medicine & Rehabilitation; Visit Provider Neurological Surgery
DX: M50.10 Cervical disc disorder with radiculopathy, unspecified cervical region (principal)
CPT/HCPCS: 99204

== ENCOUNTER → 2024-12-20 09:06 | Outpatient (BNVA) | payer MEDICARE, SELFPAY | PROVIDERS: PCP Nurse Practitioner Family; Visit Provider Neurological Surgery | DX: M50.10 Cervical disc disorder with radiculopathy, unspecified cervical region (principal) | CPT/HCPCS: 99202 ==

== ENCOUNTER 2025-03-13 10:16 | Outpatient (AMB) | payer MEDICARE, SELFPAY ==
[2025-03-13 10:23] VITALS: BP 130/80; PULSE 70; RESP 18; TEMP 36.6; O2SAT 98; BMI 24.8
--- NOTE | 2025-03-13 10:23 | A.OFFPC_ITS ---
Vital Signs 03/13/25 10:23 Height 6 ft 2 in Weight 193 lb BMI 24.8 BP 130/80 Blood Pressure Location Lt brachial Position Sitting Respiration 18 Pulse 70 Pulse Source Pulse Oximeter Temp 97.8 F Temp Source Oral Pulse Oximetry (%) 98 Oxygen Delivery Method Room Air Intake Visit Reasons: 6 month follow up Intake Note: Pt is here today for 6 months follow up visit. Allergies Penicillins Allergy (Unknown, Verified 03/13/25 10:23) Unknown Medication List - Last Reconciled 03/13/25 by BOBBI Ambrose- blood sugar diagnostic (FreeStyle Lite Strips) Test blood sugar once a day blood-glucose meter (FreeStyle Lite Meter kit) As directed dulaglutide (Trulicity) 1.5 mg (0.5 mL) subcut QWEEK ibuprofen 600 mg PO Q6-8H PRN lancets (FreeStyle Lancets) Test blood sugar once a day losartan 25 mg PO DAILY metformin 1,000 mg PO BID trazodone 50 mg PO BEDTIME PRN 30 days Tobacco use date assessed: 03/13/25 Fall risk assessment: No Falls in past year Last assessed Fall Risk: 03/13/25 Dental Screening Dental Screen Date: 03/13/25 Did you have a dental visit in the last 12 months?: Yes Did you have a dental problem in the last 6 months where you did not have access to dental care?: No Was dental information given to patient?: Patient has dentist HPI 6 month follow up HPI Details Chief Complaint The patient presents for a follow-up regarding diabetes management. History of Present Illness The patient is a 64-year-old male presenting with a follow-up for diabetes management. The medical history includes Type 2 Diabetes Mellitus. The Hemoglobin A1c level is documented at 5.9%, suggesting effective glycemic control. The patient has been adhering to dietary guidelines and medication regimens and is actively engaging in regular physical activity. He describes a general feeling of good health and reports no new symptoms or complications associated with diabetes management. insomnia: will try trazodone, reported melatonin did not work. Social History - Exercise: The patient maintains a very active lifestyle. - Nutrition: The patient is attentive to his diet. Health Maintenance - Hemoglobin A1c is 5.9%, indicating exc ellent diabetes control. - The patient refused the pneumonia vacc ine today. Review of Systems - General: Denies any new symptoms. - Neurologic: Denies sensory disturbance s. Physical Exam General: Cooperative, healthy appearing, comfortable, no acute distress and well developed Orientation: Patient oriented x3 Limitations: No limitations Head: Normal to inspection Ears: Hearing grossly normal bilaterally Nose: Normal external nose present Face and sinus: Normal facial exam Eyes: Appearance normal, both eyes and all related structures Neck: Normal visual inspection and Yes full ROM Respiratory: Normal respiratory effort and able to speak in complete sentences. Clear to auscultation bilaterally Cardiovascular: Regular rate and rhythm. Normal S1 and S2 GI: Normal to inspection. Soft to palpation and nontender Skin: No rashes or lesions noted Neuro: Patient oriented x3 Extremities: Feet intact bilaterally. Positive sensation with use of monofilament. Results - Labs: Hemoglobin A1c is 5.9%. Plan 5.9% A1c. The patient is advised to main tain his dietary regimen and medication adherence, alongside continued physical activity. Future laboratory testing is planned, and a follow-up appointment is scheduled in six months. The patient's decision to decline the pneumonia vaccine was noted, though overall, his glycemic management remains highly effective.: Discussion Notes During the consultation, I discussed the excellent control of the patient?s Type 2 Diabetes Mellitus, with the Hemoglobin A1c currently at 5.9%. We discussed the role of dietary management, regular medication adherence, and an active lifestyle in maintaining this control. The patient declined the pneumonia vaccine, which was documented, and I provided anticipatory guidance regarding the continuation of current management plans. I elaborated on the importance of regular laboratory follow-ups and scheduled the next visit for six months later. Patient Instructions - Continue prescribed medications as dir ected. - Maintain your current diet and physica l activity routines. - Schedule lab work and get it done soon for further evaluation. - Follow up with me in six months for co ntinued diabetes management. - Understand your choice regarding the p neumonia vaccine and discuss any questions. [facility] Medical History Degenerative disc disease, lumbar Arthritis COVID-19 vaccine series completed GERD (gastroesophageal reflux disease) Diabetes Kidney stones Dyslipidemia Constipation Dupuytren contracture Surgical History History of lithotripsy History of facial surgery H/O colonoscopy Family History Father HTN (hypertension) CVD (cardiovascular disease) Mother HTN (hypertension) Diabetes mellitus Paternal Grandmother Diabetes mellitus Brother No problems noted. Sister No problems noted. Sister No problems noted. Son No problems noted. Daughter No problems noted. Daughter No problems noted. Social History Housing: House Are you a primary child care supervisor to a significant other at home: No Do you presently have visiting nurse or other home services: No Patient Tobacco Use Status: Never used Tobacco e-Cigarette/Vaping Use: Never Used Second Hand Smoke Exposure: No Advance Directives Date on File: 12/18/20 service: No Current occupational status: retired Current occupation: right hand Cognitive needs: No Hearing needs: No Vision needs: No Questionnaire PHQ-9 Over the last 2 weeks, how often have you been bothered by any of the following problems? 1. Little interest or pleasure in doing things: not at all 2. Feeling down, depressed, or hopeless: not at all 3. Trouble falling or staying asleep, or sleeping too much: several days 4. Feeling tired or having little energy: several days 5. Poor appetite or overeating: not at all 6. Feeling bad about yourself - or that you are a failure or have let yourself or your family down: not at all 7. Trouble concentrating on things, such as reading the newspaper or watching television: not at all 8. Moving or speaking so slowly that other people could have noticed. Or the opposite - being so fidgety or restless that you have been moving around a lot more than usual: not at all 9. Thoughts that you would be better off or of hurting yourself in some way: not at all Total score: 2 Depression Screening Interpretation: Negative Depression Screening Done: Yes 99986 - PHQ-9 Billing: Yes Source: Developed by Drs. Eron Eldridge, Elly Saldana, Chuy Lockett and colleagues, with an educational gary from [employer]. Thrive Questionnaire Date Thrive assessed: 03/13/25 I am a: Patient What is your living situation today?: I have a steady place to live Within the past 12 months, did the food you bought not last and you didn't have the money to get more?: Never true Within the past 12 months, did you worry whether your food would run out before you got money to buy more?: Never true Do you have trouble paying for medicines?: No Do you have trouble getting transportation to medical appointments?: No Do you have trouble paying your heating and electricity bill?: No Do you have trouble taking care of your child, family member or friend?: No Do you have trouble with day-to-day activities such as bathing, preparing meals, shopping, managing finances, etc.?: No Are you currently unemployed and looking for a job?: No Are you interested in more education?: No Please select the resources that you would like help with: None Currently or been in a relationship where the following occur: No concerns reported THRIVE Score: 0 AUDIT C Alcohol Use Questionnaire (AUDIT-C) 1. How often do you have a drink containing alcohol?: Never 3. How often do you have six or more drinks on one occasion?: Never Total Score: 0 DESIREE-7 AMB Questionnaire DESIREE-7 Date DESIREE - 7 assessed: 03/13/25 Feeling nervous, anxious, or on edge: 0 = Not at all Not being able to stop or control worryin = Not at all Worrying too much about different things: 0 = Not at all Trouble relaxin = Not at all Being so restless that it is hard to sit still: 0 = Not at all Becoming easily annoyed or irritable: 0 = Not at all Feeling afraid as if something awful might happen: 0 = Not at all Total DESIREE-7 score (0-4 normal; 5-9 mild; 10-14 moderate; 15-21 severe): 0 Source: Developed by Drs. Eron Eldridge, Elly Saldana, Chuy Lockett and colleagues, with an educational gary from [employer]. DESIREE-7 Assessment Billing DESIREE-7 Assessment Tool: DESIREE-7 Assessment 68174 Physical exam (Primary Care) Vital Signs: Last Vital Signs Temp 97.8 F 03/13/25 10:23 Pulse 70 03/13/25 10:23 Resp 18 03/13/25 10:23 BP 130/80 03/13/25 10:23 Pulse Ox 98 03/13/25 10:23 Oxygen Delivery Method Room Air 03/13/25 10:23 BMI result Body Mass Index 24.8 Tobacco/Smoking Status: Tobacco use Status Tobacco use date assessed 03/13/25 03/13/25 10:24 Patient Tobacco Use Status Never used Tobacco 03/13/25 10:24 e-Cigarette/Vaping Use Never Used 03/13/25 10:24 PHQ-9: PHQ-9 Score PHQ-9: Total score 2 03/13/25 10:32 Depression Screening Interpretation: Negative Thrive Assessment: Date of Thrive Assessment Date Thrive assessed 03/13/25 03/13/25 10:32 Currently or been in a relationship where the following occur: No concerns reported Results AMB Hemoglobin A1c AMB Hemoglobin A1c 5.9 % Last Edit by DIOGO Pizarro on 03/13/25 10:3 9 Results Reviewed Results Reviewed: Laboratory Last Values Hgb A1c (Clinic) 5.9 % (4.0-6.0) 03/13/25 10:32 Coding Level of Care Code Est Pt Level 3 (81829) Diagnoses Diabetes E11.9 Additional Codes DESIREE-7 Assessment Billing - DESIREE-7 Assessment Tool: DESIREE-7 Assessment 18282 ([id number]) PHQ-9 - 89254 - PHQ-9 Billing: Yes ([id number]) Assessment & Plan Assessment & Plan (1) Diabetes: Code(s): E11.9 - Type 2 diabetes mellitus without complications Category: Medical Plan . Orders: Orders Complete Blood Count Auto Diff Today E11.9 - Type 2 diabetes mellitus without complications UA CC w/rflx Micro + Cult Today E11.9 - Type 2 diabetes mellitus without complications AMB Hemoglobin A1c Today Z13.9 - Encounter for screening, unspecified Comprehensive [place]. Panel Fast Today E11.9 - Type 2 diabetes mellitus without complications TSH reflex Free T4 Today E11.9 - Type 2 diabetes mellitus without complications Lipid Panel Today E11.9 - Type 2 diabetes mellitus without complications Comprehensive Met. Panel Today E11.9 - Type 2 diabetes mellitus without complications Medications: New trazodone 50 mg PO BEDTIME 30 days PRN 30 tabs 0RF sleep trazodone 50 mg PO BEDTIME PRN 30 tabs 0RF sleep 30 days
--- OUTSIDE RECORDS SUMMARY | 2025-03-13 11:22 | XMS_ITS | Patient Health Record ---
Author Organization [facility] Address [address] [place] [address] Care Team Providers Care Animal Control Officer Name Role Phone BRIANDA LEBRON Primary Care Provider Eron Riddle [phone] Allergies Allergen (clinical drug ingredient) Drug/Non Drug Allergy documented on EMR Reaction Allergy Type Onset Date Status Penicillin Unknown Drug Allergy Active Reason For Referral No Information Medications Medication SIG (Take, Route, Frequency, Duration) Notes [...] Citrate 50 MG Orally Active Multivitamin Active Immunizations Vaccine Route Administration Date Status Comme nts Influenza Unknown 10/18/2019 Refused Influenza Unknown 02/12/2021 Refused Problems Problem Type SNOMED Code ICD Code Onset Dates Problem Status W/U Status Risk Notes Problem 786058238 Encounter for screening for malignant neoplasm of colon (Z12.11) Active confirmed Problem 057396303 History of adenomatous polyp of colon (Z86.010) Active confirmed Problem Screening for malignant neoplasm of rectum (361885551) Encounter for screening for malignant neoplasm of rectum (Z12.12) Active confirmed Problem 56252798 Preprocedural examination (Z01.818) Active confirmed Problem 388294667 Gastroesophageal reflux disease, esophagitis presence not specified (K21.9) Active confirmed Problem 51921009 Constipation, unspecified constipation type (K59.00) Active confirmed Problem 434825443 Abdominal pain, periumbilic (R10.33) Active confirmed Plan Of Treatment Pending Test Test Name Order Date Pathology 03/24/2021 Future Test Test Name Order Date COLONOSCOPY 02/25/2016 UPPER GI ENDOSCOPY 02/12/2021 COLONOSCOPY 02/12/2021 Insurance Providers Payer Name Payer Address Payer Phone Subscriber Number Group Number Insured Name Patient Relationship to Insured Coverage Start Date Coverage End Date [facility] [address] [place], [place] [id number] LENIN MORA Self - patient is the insured Medical (General) History Medical History History ICD Code Colonoscopy 03-12-2011--1 [...]
== END 2025-03-13 11:14 | disposition home or self-care (01) ==
LOC: HO.HMCC 10:16
PROVIDERS: PCP Nurse Practitioner Family; Visit Provider Nurse Practitioner Family
DX: E11.9 Type 2 diabetes mellitus without complications (principal); Z13.9 Encounter for screening, unspecified

== ENCOUNTER → 2025-03-13 10:16 | Outpatient (BNVA) | payer MEDICARE, SELFPAY | PROVIDERS: PCP Nurse Practitioner Family; Visit Provider Nurse Practitioner Family | DX: E11.9 Type 2 diabetes mellitus without complications (principal) | CPT/HCPCS: 83036; 96127; 99212 ==

== ENCOUNTER 2025-05-23 09:17 | Outpatient (AMB) | payer MEDICARE, SELFPAY ==
[2025-05-23 09:38] VITALS: BMI 24.8
--- NOTE | 2025-05-23 09:38 | A.OFFVIS_ITS ---
Vital Signs 05/23/25 09:38 Height 6 ft 2 in Weight 193 lb BMI 24.8 Intake Visit Reasons: New prob- RT MF&RF laceration DOI 05/23/25 Intake Note: Arnel 64 yr old male presents today for a new problem visit for his right middle and ring finger. Patient reports this morning while closing his garage door he crushed his right middle and ring finger under door. States he felt little pain and continued to yard work. Currently states he has swelling, bleeding and some pain. Allergies Penicillins Allergy (Unknown, Verified 05/23/25 09:42) Unknown HPI HPI New prob- RT MF&RF laceration DOI 05/23/25: Details: Arnel is a 64 year old left hand dominant man who presents for a right middle & ring finger injury. he caught his middle & ring fingers under a closing automatic garage door, DOI: 05/23/25. He says he felt little pain, and continued to do yard work before coming in. He now complains of pain, swelling, and bleeding from his injuries. He has a Hx of an unknown reaction to Penicillin from when he was a child. [facility] Medical History Degenerative disc disease, lumbar Arthritis COVID-19 vaccine series completed GERD (gastroesophageal reflux disease) Diabetes Kidney stones Dyslipidemia Constipation Dupuytren contracture Surgical History History of lithotripsy History of facial surgery H/O colonoscopy Family History Father HTN (hypertension) CVD (cardiovascular disease) Mother HTN (hypertension) Diabetes mellitus Paternal Grandmother Diabetes mellitus Brother No problems noted. Sister No problems noted. Sister No problems noted. Son No problems noted. Daughter No problems noted. Daughter No problems noted. Social History Housing: House Are you a primary childcare teacher to a significant other at home: No Do you presently have visiting nurse or other home services: No Patient Tobacco Use Status: Never used Tobacco e-Cigarette/Vaping Use: Never Used Second Hand Smoke Exposure: No Advance Directives Date on File: 12/18/20 service: No Current occupational status: retired Current occupation: right hand Cognitive needs: No Hearing needs: No Vision needs: No Review of Systems Const All systems reviewed & are unremarkable except as noted in HPI and below Physical Exam Vital Signs: BMI result Body Mass Index 24.8 Const General: no acute distress and alert Orientation/consciousness: patient oriented x3 Neuro General: patient oriented x3 Extrem Other: Evaluation of Right Upper Extremity: The patient is alert, oriented, and in no acute distress Some decreased sensation to the tips of the middle and ring fingers Cap refill brisk ROM: He can make a fist and extend all his digits There is a transverse laceration across the pad of the middle finger Subungual hematomas beneatht he nail of both the middle & ring fingers, bleeding from under the distal aspect of the nail plates No evidence of infection Radiographs: 3 views of the right hand were taken and viewed by me today in clinic. They show a transverse nondisplaced fracture through the distal phalanx tuft of both the middle & ring fingers. Both are nondisplaced Psych Appearance: grossly normal Affect: normal affect Attitude: cooperative Office Procedures AMB Fracture Care Details: [id number] repair of laceration performed in clinic Fracture care [id number] x 2, middle finger and ring finger Fracture Billing Code: Fracture Billing Code Assessment & Plan Assessment & Plan (1) Open fracture of distal phalanx of right middle finger: Code(s): S62.632B - Displaced fracture of distal phalanx of right middle finger, initial encounter for open fracture Category: Medical (2) Open fracture of distal phalanx of right ring finger: Code(s): S62.634B - Displaced fracture of distal phalanx of right ring finger, initial encounter for open fracture Category: Medical (3) Diabetes: Code(s): E11.9 - Type 2 diabetes mellitus without complications Category: Medical Plan Assessment and plan: 1. Right middle finger distal phalanx tuft fracture, open, transverse, nondisplaced With a transverse laceration in the pad 2. Right ring finger distal phalanx tuft fracture, open, transverse, nondisplaced From a crush injury at home, DOI: 05/23/25 I educated him about this condition I discussed operative and non-operative treatment options We will manage this conservatively, and he is in agreement I recommend we suture this in clinic today, and he is in agreement Sterile dressing & splints applied, allowing for PIP joint ROM, to be worn like a cast for the next 2 weeks I explained the signs and symptoms of infection, if the patient develops any new or worsening erythema, drainage, pain, or warmth they should contact the clinic or attend the ED. He was placed on a 7-day course of Keflex, due to a Hx of Penicillin allergy I discussed activity modifications, he is to lift nothing heavier than a cellphone for the next 6 weeks He will perform gentle finger ROM exercises at home He should avoid any underwater activities at this time He will follow up in 10 days with ARIELLE Hernández for a wound check Procedure #1: The risks and benefits of treatment were discussed with the patient and the patient wishes to proceed with the procedure. These risks include, but are not limited to risk of damage to blood vessels, nerves, tendons, infection, recurrence, incomplete relief of preoperative symptoms, persistent pain, possible need for further surgery and the risks associated with regional blocks and anesthesia. I performed a block of the middle finger using 0.5% Marcaine, then: 1. I&D of open wounds 2. Re-approximation of skin edges with sutures 3. Sterile dressing & splints applied, allowing for PIP joint ROM He tolerated the procedure well and with no complications. He will remove the dressing in 5 days at home, and then perform daily dressing changes. I put him in finger splints as well. 3. Right small finger Dupuytren's contracture, S/P partial fasciectomy DOS: 08/02/23 Pre-operative: MCP 20/PIP 25 Now with full extension 4. Right ring finger Dupuytren's contracture, S/P partial fasciectomy DOS: 08/02/23 Pre-operative: MCP 15/PIP 0 Now with full extension 5. Right middle finger Dupuytren's contracture MCP 10/PIP 0 6. Left small finger Dupuytren's contracture, S/P partial fasciectomy DOS: 08/24/22 Pre-operative: MCP 15/PIP 20 Now with full extension Scribed for Padmaja Reyes MD by Tyree Yap, medical instrument technician, on 05/23/25 at 9:50 AM, EST. Orders: Orders XR hand RT min 3V Today M79.641 - Pain in right hand Medications: New cephalexin 500 mg PO QID 30 caps 0RF Coding Level of Care Code Est Pt Level 5 (71670) Diagnoses Open fracture of distal phalanx of right middle finger S62.632B Open fracture of distal phalanx of right ring finger S62.634B Diabetes E11.9 CPT Codes Fracture Care - Fracture Billing Code: Fracture Billing Code ([id number])
--- OUTSIDE RECORDS SUMMARY | 2025-05-23 09:49 | XMS_ITS | Patient Health Record ---
Author Organization [facility] Address [address] [place] [address] Care Team Providers Care Dredge Runner Name Role Phone BRIANDA LEBRON Primary Care Provider Eron Riddle [phone] Allergies Allergen (clinical drug ingredient) Drug/Non Drug [...] Problem Status W/U Status Risk Notes Problem 050838950 Encounter for screening for malignant neoplasm of colon (Z12.11) Active confirmed Problem 794478881 History of adenomatous polyp of colon (Z86.010) Active confirmed Problem Screening for malignant neoplasm of rectum (684873945) Encounter for screening for malignant neoplasm of rectum (Z12.12) Active confirmed Problem 01170867 Preprocedural examination (Z01.818) Active confirmed Problem 360155147 Gastroesophageal reflux disease, esophagitis presence not specified (K21.9) Active confirmed Problem 40652007 Constipation, unspecified constipation type (K59.00) Active confirmed Problem 997608898 Abdominal pain, periumbilic (R10.33) Active confirmed Plan Of Treatment Pending Test Test Name Order Date Pathology 03/24/2021 Future Test Test Name Order Date COLONOSCOPY 02/25/2016 UPPER GI ENDOSCOPY 02/12/2021 COLONOSCOPY 02/12/2021 Insurance Providers Payer Name Payer Address Payer Phone Subscriber Number Group Number Insured Name Patient Relationship to Insured Coverage Start Date Coverage End Date [facility] [address] [place], [place] [id number] LENIN MORA Self - patient is the insured Medical (General) History Medical History History ICD Code Colonoscopy 03-12-2011--1 cm tubular adenoma removed, mild sigmoid diverticulosis History of elevated LFT's due to mono--r esolved Hypertension Denies [place],CVA,Lung disease,renal disease Neg. colonoscopy in 06/2016-- hyperplastic polyp, diverticulosis, internal hemorrhoid GERD NIDDM Peyronie's Disease Dupuytrenne's in both hands Kidney stone-s/p ESWL Surgical History Surgery Date(Month/Year) Facial surgery related to an accident Leg surgery Right shoulder
== END 2025-05-23 13:03 | disposition home or self-care (01) ==
LOC: HO.HOS 09:18
PROVIDERS: PCP Nurse Practitioner Family; Visit Provider Orthopaedic Surgery
DX: S62.632B Displaced fracture of distal phalanx of right middle finger, initial encounter for open fracture (principal); S62.634B Displaced fracture of distal phalanx of right ring finger, initial encounter for open fracture; E11.9 Type 2 diabetes mellitus without complications
CPT/HCPCS: 11012; 99214

== ENCOUNTER 2025-05-23 09:17 | Outpatient (REF) | payer MEDICARE, SELFPAY ==
--- NOTE | ~2025-05-23 | XR_ITS ---
EXAMINATION: XR HAND, RIGHT CLINICAL INFORMATION: M79.641 - Pain in right hand COMPARISON: None available. TECHNIQUE: PA, lateral, and oblique views of the right hand. FINDINGS: Transversely oriented cortical disruption lucency at the tip of the distal phalanx use of the third and fourth digits and questionable second and fifth digits. The metacarpal bones are intact. The carpal bones are intact. Distal radius and ulna are intact. No subcutaneous emphysema. No metallic or radiopaque foreign body. XR/XR hand RT min 3V IMPRESSION: Concerning nondisplaced fractures distal aspect of the distal phalanges from the second to the fifth most conspicuous at the third and fourth digits. Electronically signed by: Hernesto Velez MD 05/23/2025 09:54 AM EDT
== END 2025-05-23 09:18 | disposition home or self-care (01) ==
LOC: HO.HOSX 09:17
PROVIDERS: PCP Nurse Practitioner Family; Visit Provider Orthopaedic Surgery
DX: S62.632B Displaced fracture of distal phalanx of right middle finger, initial encounter for open fracture (principal); S62.634B Displaced fracture of distal phalanx of right ring finger, initial encounter for open fracture; E11.9 Type 2 diabetes mellitus without complications; W23.0XXA Caught, crushed, jammed, or pinched between moving objects, initial encounter; Y93.89 Activity, other specified; Y92.59 Other trade areas as the place of occurrence of the external cause
CPT/HCPCS: 10060; 11012; 26750; 73130; 99212; J0665

== ENCOUNTER → 2025-05-23 09:21 | Outpatient (BNV) | payer MEDICARE, SELFPAY | PROVIDERS: PCP Nurse Practitioner Family; Visit Provider Radiology Diagnostic Radiology | DX: S62.660A Nondisplaced fracture of distal phalanx of right index finger, initial encounter for closed fracture (principal) | CPT/HCPCS: 73130 ==

== ENCOUNTER 2025-06-01 08:22 | Outpatient (AMB) | payer MEDICARE, SELFPAY ==
--- NOTE | 2025-06-01 08:24 | A.OFFVIS_ITS ---
Vital Signs 06/01/25 08:27 Height 6 ft 2 in Weight 193 lb BMI 24.8 Intake Visit Reasons: OV RT MF&RF laceration DOI 05/23/25 Intake Note: Arnel is a 64 year old right hand dominant male who presents today for a wound check of his right middle and ring finger laceration & open fractures. At his last visit on 05/23/25, patient reported earlier in the day he crushed his fi ngers with a garage door. Patient was evaluated by Dr. Reyes and the right ring finger laceration was closed. He was placed on 7 day course of Keflex. Finger splints were provided for both fingers to be worn like a cast. Patient was advised to avoid any lifting heaver than a cell phone for 6 weeks. Today, patient reports he was unable to start antibiotics until Wednesday05/25/25 due to issues with the pharmacy. Patient also shares he did not receive finger splints at his last visit. Patient reports no concerns today. He continues taking antibiotics as prescribed. Denies numbness and tingling. Allergies Penicillins Allergy (Unknown, Verified 06/01/25 08:27) Unknown HPI HPI OV RT MF&RF laceration DOI 05/23/25: Details: Arnel is a 64 year old right hand dominant male who presents today for a wound check of his right middle and ring finger laceration & open fractures. At his last visit on 05/23/25, patient reported earlier in the day he crushed his fingers with a garage door. Patient was evaluated by Dr. Reyes and the right ring finger laceration was closed. He was placed on 7 day course of Keflex. Finger splints were provided for both fingers to be worn like a cast. Patient was advised to avoid any lifting heaver than a cell phone for 6 weeks. Today, patient reports he was unable to start antibiotics until Wednesday05/25/25 due to issues with the pharmacy. Patient also shares he did not receive finger splints at his last visit. Patient reports no concerns today. He continues taking antibiotics as prescribed. Denies numbness and tingling. [facility] Medical History Degenerative disc disease, lumbar Arthritis COVID-19 vaccine series completed GERD (gastroesophageal reflux disease) Diabetes Kidney stones Dyslipidemia Constipation Dupuytren contracture Surgical History History of lithotripsy History of facial surgery H/O colonoscopy Family History Father HTN (hypertension) CVD (cardiovascular disease) Mother HTN (hypertension) Diabetes mellitus Paternal Grandmother Diabetes mellitus Brother No problems noted. Sister No problems noted. Sister No problems noted. Son No problems noted. Daughter No problems noted. Daughter No problems noted. Social History Housing: House Are you a primary client care consultant to a significant other at home: No Do you presently have visiting nurse or other home services: No Patient Tobacco Use Status: Never used Tobacco e-Cigarette/Vaping Use: Never Used Second Hand Smoke Exposure: No Advance Directives Date on File: 12/18/20 service: No Current occupational status: retired Current occupation: right hand Cognitive needs: No Hearing needs: No Vision needs: No Review of Systems Const All systems reviewed & are unremarkable except as noted in HPI and below Physical Exam Vital Signs: BMI result Body Mass Index 24.8 Const General: no acute distress and alert Orientation/consciousness: patient oriented x3 Neuro General: patient oriented x3 Extrem Other: Evaluation of Right Upper Extremity: The patient is alert, oriented, and in no acute distress Some decreased sensation to the tips of the middle and ring fingers Cap refill brisk ROM: He can make a fist and extend all his digits There is a transverse laceration across the pad of the middle finger Laceration appears to be healing very well, with sutures in place. No erythema, drainage, or evidence of infection noted Subungual hematomas beneath he nail of both the middle & ring fingers, no active bleeding from under the distal aspect of the nail plates No evidence of infection Psych Appearance: grossly normal Affect: normal affect Attitude: cooperative Assessment & Plan Assessment & Plan (1) Open fracture of distal phalanx of right ring finger: Code(s): S62.634B - Displaced fracture of distal phalanx of right ring finger, initial encounter for open fracture Category: Medical (2) Open fracture of distal phalanx of right middle finger: Code(s): S62.632B - Displaced fracture of distal phalanx of right middle finger, initial encounter for open fracture Category: Medical Plan 1. Open fracture of the distal phalanx of right ring finger 2. Open fracture of the distal phalanx of right middle finger Date of injury 05/23/2025 Patient appears to be recovering well from his injury Patient is educated about the typical recovery course Sutures removed in the office today without issue Patient should finish his current course of antibiotics, no further antibiotics necessary, as there is no evidence of active infection Patient should keep dressings on the right middle and ring fingers 2 lb weight limit in right hand Patient inquires if it is safe for him to play pickle ball at this time, in his advised that he should hold off on pickleball until next evaluation Patient expresses understanding of this Follow-up in 2 weeks for reassessment, sooner with any acute concerns Coding Level of Care Code Global (58391) Diagnoses Open fracture of distal phalanx of right ring finger S62.634B Open fracture of distal phalanx of right middle finger S62.632B
[2025-06-01 08:27] VITALS: BMI 24.8
--- OUTSIDE RECORDS SUMMARY | 2025-06-01 08:33 | XMS_ITS | Patient Health Record ---
Author Organization [facility] Address [address] [place] [address] Care Team Providers Care Cleaning Supervisor Name Role Phone BRIANDA LEBRON Primary Care Provider Eron Riddle [phone] Allergies Allergen (clinical drug ingredient) Drug/Non Drug [...] Problem Status W/U Status Risk Notes Problem 183060994 Encounter for screening for malignant neoplasm of colon (Z12.11) Active confirmed Problem 138245375 History of adenomatous polyp of colon (Z86.010) Active confirmed Problem Screening for malignant neoplasm of rectum (088073091) Encounter for screening for malignant neoplasm of rectum (Z12.12) Active confirmed Problem 91522312 Preprocedural examination (Z01.818) Active confirmed Problem 007139542 Gastroesophageal reflux disease, esophagitis presence not specified (K21.9) Active confirmed Problem 44294865 Constipation, unspecified constipation type (K59.00) Active confirmed Problem 875259291 Abdominal pain, periumbilic (R10.33) Active confirmed Plan Of Treatment Pending Test Test Name Order Date Pathology 03/24/2021 Future Test Test Name Order Date COLONOSCOPY 02/25/2016 UPPER GI ENDOSCOPY 02/12/2021 COLONOSCOPY 02/12/2021 Insurance Providers Payer Name Payer Address Payer Phone Subscriber Number Group Number Insured Name Patient Relationship to Insured Coverage Start Date Coverage End Date [facility] [address] [place], [place] [id number] LENIN MORA Self - patient is the insured Medical (General) History Medical History History ICD Code Colonoscopy 03-12-2011--1 cm tubular adenoma removed, mild sigmoid diverticulosis History of elevated LFT's due to mono--r esolved Hypertension Denies [place],CVA,Lung disease,renal disease Neg. colonoscopy in 06/2016-- hyperplastic polyp, diverticulosis, internal hemorrhoid GERD NIDDM Peyronie's Disease Dupuytrenne's in both hands Kidney stone-s/p ESWL Surgical History Surgery Date(Month/Year) Facial surgery related to an accident Leg surgery Right shoulder
== END 2025-06-01 08:54 | disposition home or self-care (01) ==
LOC: HO.HOS 08:23
PROVIDERS: PCP Nurse Practitioner Family
DX: S62.634B Displaced fracture of distal phalanx of right ring finger, initial encounter for open fracture (principal); S62.632B Displaced fracture of distal phalanx of right middle finger, initial encounter for open fracture
CPT/HCPCS: 99213

== ENCOUNTER → 2025-06-01 08:22 | Outpatient (BNVA) | payer MEDICARE, SELFPAY | PROVIDERS: PCP Nurse Practitioner Family | DX: S62.634B Displaced fracture of distal phalanx of right ring finger, initial encounter for open fracture (principal); S62.632B Displaced fracture of distal phalanx of right middle finger, initial encounter for open fracture | CPT/HCPCS: 99212 ==

== ENCOUNTER 2025-06-13 09:22 | Outpatient (AMB) | payer MEDICARE, SELFPAY ==
--- NOTE | 2025-06-13 09:41 | A.OFFVIS_ITS ---
Vital Signs 06/13/25 09:42 Height 6 ft 2 in Weight 193 lb BMI 24.8 Intake Visit Reasons: OV RT MF&RF laceration DOI 05/23/25 Intake Note: Arnel is a 64 year old right hand dominant male who presents today for a wound check of his right middle and ring finger laceration & open fractures s/p fingers crushed under garage door. At his last visit he was advised no heavy lif ting more than 2 lbs. Currently patient states he is doing well however he has concerns due to his middle finger nail looks like it will fall off soon. He is also having tenderness in his ring finger, he is ablew to make a fist with no pain. Allergies Penicillins Allergy (Unknown, Verified 06/13/25 09:45) Unknown HPI HPI OV RT MF&RF laceration DOI 05/23/25: Details: Arnel is a 64 year old left hand dominant man who returns for a right middle & ring finger distal phalanx fractures. He caught his middle & ring fingers under a closing automatic garage door, DOI: 05/23/25. He says he is doing better, but he is concerned that his nail may be falling off. He says his pain has improved. He has a Hx of an unknown reaction to Penicillin from when he was a child. [facility] Medical History Degenerative disc disease, lumbar Arthritis COVID-19 vaccine series completed GERD (gastroesophageal reflux disease) Diabetes Kidney stones Dyslipidemia Constipation Dupuytren contracture Surgical History History of lithotripsy History of facial surgery H/O colonoscopy Family History Father HTN (hypertension) CVD (cardiovascular disease) Mother HTN (hypertension) Diabetes mellitus Paternal Grandmother Diabetes mellitus Brother No problems noted. Sister No problems noted. Sister No problems noted. Son No problems noted. Daughter No problems noted. Daughter No problems noted. Social History Housing: House Are you a primary disabilities caregiver to a significant other at home: No Do you presently have visiting nurse or other home services: No Patient Tobacco Use Status: Never used Tobacco e-Cigarette/Vaping Use: Never Used Second Hand Smoke Exposure: No Advance Directives Date on File: 12/18/20 service: No Current occupational status: retired Current occupation: right hand Cognitive needs: No Hearing needs: No Vision needs: No Physical Exam Vital Signs: BMI result Body Mass Index 24.8 Const General: no acute distress and alert Orientation/consciousness: patient oriented x3 Neuro General: patient oriented x3 Extrem Other: Evaluation of Right Upper Extremity: The patient is alert, oriented, and in no acute distress Some decreased sensation to the tips of the middle and ring fingers Cap refill brisk ROM: He can make a fist with all digits and extend all his digits Regarding the ring finger Subungual hematoma beneath the nail of the ring finger, resolving, 90% proximal. The distal 10% is attached to the nail bed. The ring finger has no tenderness & his swelling has improved. He has mild tenderness to the middle finger Middle finger still has a fair amount of swelling at the distal phalanx level. Laceration is well healed, no drainage His nail has almost completely lifted off the sterile matrix, and the old nail is hinging at the base at the eponycheal fold. No evidence of infection Psych Appearance: grossly normal Affect: normal affect Attitude: cooperative Assessment & Plan Assessment & Plan (1) Open fracture of distal phalanx of right middle finger: Code(s): S62.632B - Displaced fracture of distal phalanx of right middle finger, initial encounter for open fracture Category: Medical (2) Open fracture of distal phalanx of right ring finger: Code(s): S62.634B - Displaced fracture of distal phalanx of right ring finger, initial encounter for open fracture Category: Medical (3) Diabetes: Code(s): E11.9 - Type 2 diabetes mellitus without complications Category: Medical Plan Assessment and plan: 1. Right middle finger distal phalanx tuft fracture, open, transverse, nondisplaced With a transverse laceration in the pad 2. Right ring finger distal phalanx tuft fracture, open, transverse, nondisplaced From a crush injury at home, DOI: 05/23/25 I educated him about this condition I discussed operative and non-operative treatment options This has been managed conservatively I explained the signs and symptoms of infection, if the patient develops any new or worsening erythema, drainage, pain, or warmth they should contact the clinic or attend the ED. He was fitted for a finger spica splint, extending from the PIP joint distally I discussed activity modifications, he is to use his his hand for lightweight activities only, while in his splint. He is also insistent that he wants to r eturn to Pickleball, and he should wear his finger splint when he does He will perform finger ROM exercises at home He is going to [place] sometime next week on vacation. He is able to swim currently but should wash his hands and apply topical Abx afterwards. 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 Right small finger Dupuytren's contracture, S/P partial fasciectomy DOS: 08/02/23 Pre-operative: MCP 20/PIP 25 Now with full extension 4. Right ring finger Dupuytren's contracture, S/P partial fasciectomy DOS: 08/02/23 Pre-operative: MCP 15/PIP 0 Now with full extension 5. Right middle finger Dupuytren's contracture MCP 10/PIP 0 6. Left small finger Dupuytren's contracture, S/P partial fasciectomy DOS: 08/24/22 Pre-operative: MCP 15/PIP 20 Now with full extension Scribed for Padmaja Reyes MD by Tyree Yap, medical service representative, on 06/13/25 at 9:55 AM, EST. Coding Level of Care Code Global (01776) Diagnoses Open fracture of distal phalanx of right middle finger S62.632B Open fracture of distal phalanx of right ring finger S62.634B Diabetes E11.9
[2025-06-13 09:42] VITALS: BMI 24.8
== END 2025-06-13 10:16 | disposition home or self-care (01) ==
LOC: HO.HOS 09:23
PROVIDERS: PCP Nurse Practitioner Family; Visit Provider Orthopaedic Surgery
DX: S62.632B Displaced fracture of distal phalanx of right middle finger, initial encounter for open fracture (principal); S62.634B Displaced fracture of distal phalanx of right ring finger, initial encounter for open fracture; E11.9 Type 2 diabetes mellitus without complications
CPT/HCPCS: 99213

== ENCOUNTER → 2025-06-13 09:22 | Outpatient (BNVA) | payer MEDICARE, SELFPAY | PROVIDERS: PCP Nurse Practitioner Family; Visit Provider Orthopaedic Surgery | DX: S62.634B Displaced fracture of distal phalanx of right ring finger, initial encounter for open fracture (principal); E11.9 Type 2 diabetes mellitus without complications | CPT/HCPCS: 99212 ==

== ENCOUNTER 2025-07-11 10:26 | Outpatient (AMB) | payer MEDICARE, SELFPAY ==
[2025-07-11 10:39] VITALS: BMI 24.8
--- NOTE | 2025-07-11 10:39 | A.OFFVIS_ITS ---
Vital Signs 07/11/25 10:39 Height 6 ft 2 in Weight 193 lb BMI 24.8 Intake Visit Reasons: OV RT MF&RF laceration DOI 05/23/25 Intake Note: Arnel is a 64 year old right hand dominant male who presents today for a wound check of his right middle and ring finger laceration & open fractures s/p fingers crushed under garage door. At his last visit he was fitted for a finger spica splint, extending from the PIP joint distally. He is to use his hand for lightweight activities only, while in his splint. Patient is aware he must use finger splint while playing Pickleball, he was also advise to perform finger ROM exercises at home. At his last visit , patient mentioned he will be going to [employer] sometime on vacation. He was advise he is able to swim currently but should wash his hands and apply topical Abx afterwards. Currently states his middle finger nail came off, no pain. States he has been doing well. Allergies Penicillins Allergy (Unknown, Verified 07/11/25 10:42) Unknown HPI HPI OV RT MF&RF laceration DOI 05/23/25: Details: Arnel is a 64 year old left hand dominant man who returns for a right middle & ring finger distal phalanx fractures. He caught his middle & ring fingers under a closing automatic garage door, DOI: 05/23/25. He says he is doing better, with only a little bit of tenderness, but this is tolerable. His new nail is growing out. He still has some mild swelling in his fingers. He has a Hx of an unknown reaction to Penicillin from when he was a child. [facility] Medical History Degenerative disc disease, lumbar Arthritis COVID-19 vaccine series completed GERD (gastroesophageal reflux disease) Diabetes Kidney stones Dyslipidemia Constipation Dupuytren contracture Surgical History History of lithotripsy History of facial surgery H/O colonoscopy Family History Father HTN (hypertension) CVD (cardiovascular disease) Mother HTN (hypertension) Diabetes mellitus Paternal Grandmother Diabetes mellitus Brother No problems noted. Sister No problems noted. Sister No problems noted. Son No problems noted. Daughter No problems noted. Daughter No problems noted. Social History Housing: House Are you a primary transitions rn care coordinator to a significant other at home: No Do you presently have visiting nurse or other home services: No Patient Tobacco Use Status: Never used Tobacco e-Cigarette/Vaping Use: Never Used Second Hand Smoke Exposure: No Advance Directives Date on File: 12/18/20 service: No Current occupational status: retired Current occupation: right hand Cognitive needs: No Hearing needs: No Vision needs: No Physical Exam Vital Signs: BMI result Body Mass Index 24.8 Const General: no acute distress and alert Orientation/consciousness: patient oriented x3 Neuro General: patient oriented x3 Extrem Other: Evaluation of Right Upper Extremity: The patient is alert, oriented, and in no acute distress Some decreased sensation to the tips of the middle and ring fingers Cap refill brisk ROM: He can make a fist with all digits and extend all his digits Regarding the ring finger Subungual hematoma beneath the nail of the ring finger. The nail is still in position but appears to be pushed out from underneath the eponycheal fold The ring finger distal phalanx fracture has no tenderness & his swelling has resolved He has mild tenderness to the middle finger distal phalanx, and a slight turning up or apex volar deformity in the tip of the finger Middle finger still has some swelling at the distal phalanx level, improving but still present Laceration is well healed, no drainage His new nail is growing out from underneath the eponychial fold No evidence of infection Radiographs: 3 views of the right hand were taken and viewed by me today in clinic. They show a transverse nondisplaced fracture through the distal phalanx tuft of both the middle & ring fingers. There is some widening at the middle finger distal phalanx fracture, and a slight apex volar deformity seen. Psych Appearance: grossly normal Affect: normal affect Attitude: cooperative Assessment & Plan Assessment & Plan (1) Open fracture of distal phalanx of right middle finger: Code(s): S62.632B - Displaced fracture of distal phalanx of right middle finger, initial encounter for open fracture Category: Medical (2) Open fracture of distal phalanx of right ring finger: Code(s): S62.634B - Displaced fracture of distal phalanx of right ring finger, initial encounter for open fracture Category: Medical (3) Diabetes: Code(s): E11.9 - Type 2 diabetes mellitus without complications Category: Medical Plan Assessment and plan: 1. Right middle finger distal phalanx tuft fracture, open, transverse, nondisplaced With a transverse laceration in the pad Now with some mild apex volar angulation 2. Right ring finger distal phalanx tuft fracture, open, transverse, nondisplaced From a crush injury at home, DOI: 05/23/25 I educated him and his daughter about this condition I showed his daughter how to have him gently try and correct the apex volar deformity to the middle finger tip. Evidently he has been firmly tapping the tip of the finger on the table to show that it is okay. He will discontinue his splint at home. I discussed activity modifications, he is to use his his hand for more normal daily activities, and slowly increase his weight limit as tolerated, while in his splint. He should continue to wear his splint when out of the house, especially playing pickleball. He will perform finger ROM exercises at home He will follow up in 4-6 weeks to see how he is doing 3. Right small finger Dupuytren's contracture, S/P partial fasciectomy DOS: 08/02/23 Pre-operative: MCP 20/PIP 25 Now with full extension 4. Right ring finger Dupuytren's contracture, S/P partial fasciectomy DOS: 08/02/23 Pre-operative: MCP 15/PIP 0 Now with full extension 5. Right middle finger Dupuytren's contracture MCP 10/PIP 0 6. Left small finger Dupuytren's contracture, S/P partial fasciectomy DOS: 08/24/22 Pre-operative: MCP 15/PIP 20 Now with full extension Scribed for Padmaja Reyes MD by [facility] director, on 07/11/25 at 10:45 AM, EST. Orders: Orders XR hand RT min 3V Today M79.641 - Pain in right hand Coding Level of Care Code Global (73254) Diagnoses Open fracture of distal phalanx of right middle finger S62.632B Open fracture of distal phalanx of right ring finger W90.686E Diabetes E11.9
== END 2025-07-11 11:23 | disposition home or self-care (01) ==
LOC: HO.HOS 10:26
PROVIDERS: PCP Nurse Practitioner Family; Visit Provider Orthopaedic Surgery
DX: S62.632B Displaced fracture of distal phalanx of right middle finger, initial encounter for open fracture (principal); S62.634B Displaced fracture of distal phalanx of right ring finger, initial encounter for open fracture; E11.9 Type 2 diabetes mellitus without complications
CPT/HCPCS: 99213

== ENCOUNTER 2025-07-11 10:26 | Outpatient (REF) | payer MEDICARE, SELFPAY ==
--- NOTE | ~2025-07-11 | XR_ITS ---
EXAMINATION: XR HAND, RIGHT CLINICAL INFORMATION: M79.641 - Pain in right hand , follow-up fracture COMPARISON: May 23, 2025 TECHNIQUE: PA, lateral, and oblique views of the right hand. FINDINGS: Again seen are fractures involving the dann of the third and fourth distal phalanges. Fracture lines are more evident on today's examination consistent with early healing. There are no other changes. XR/XR hand RT min 3V IMPRESSION: Early signs of healing, fractures of the third and fourth dann. Electronically signed by: Ajay Grimm MD 07/11/2025 11:45 AM EDT
--- OUTSIDE RECORDS SUMMARY | 2025-07-11 13:22 | XMS_ITS | Patient Health Record ---
Author Organization [facility] Address [address] [place] [address] Care Team Providers Care Special Agent [employer] Name Role Phone BRIANDA LEBRON Primary Care Provider Eron Riddle [phone] Allergies Allergen (clinical drug ingredient) Drug/Non Drug [...] Problem Status W/U Status Risk Notes Problem 838714311 Encounter for screening for malignant neoplasm of colon (Z12.11) Active confirmed Problem 509725716 History of adenomatous polyp of colon (Z86.010) Active confirmed Problem Screening for malignant neoplasm of rectum (106321412) Encounter for screening for malignant neoplasm of rectum (Z12.12) Active confirmed Problem 37895985 Preprocedural examination (Z01.818) Active confirmed Problem 653725724 Gastroesophageal reflux disease, esophagitis presence not specified (K21.9) Active confirmed Problem 94727717 Constipation, unspecified constipation type (K59.00) Active confirmed Problem 513113156 Abdominal pain, periumbilic (R10.33) Active confirmed Plan Of Treatment Pending Test Test Name Order Date Pathology 03/24/2021 Future Test Test Name Order Date COLONOSCOPY 02/25/2016 UPPER GI ENDOSCOPY 02/12/2021 COLONOSCOPY 02/12/2021 Insurance Providers Payer Name Payer Address Payer Phone Subscriber Number Group Number Insured Name Patient Relationship to Insured Coverage Start Date Coverage End Date [facility] [address] [place], [place] [id number] [phone] [id number] LENIN MORA Self - patient is the insured Medical (General) History Medical History History ICD Code Colonoscopy 03-12-2011--1 cm tubular adenoma removed, mild sigmoid diverticulosis History of elevated LFT's due to mono--r esolved Hypertension Denies VA,CVA,Lung disease,renal disease Neg. colonoscopy in 06/2016-- hyperplastic polyp, diverticulosis, internal hemorrhoid GERD NIDDM Peyronie's Disease Dupuytrenne's in both hands Kidney stone-s/p ESWL Surgical History Surgery Date(Month/Year) Facial surgery related to an accident Leg surgery Right shoulder
== END 2025-07-11 10:27 | disposition home or self-care (01) ==
LOC: HO.HOSX 10:26
PROVIDERS: PCP Nurse Practitioner Family; Visit Provider Orthopaedic Surgery
DX: S62.632B Displaced fracture of distal phalanx of right middle finger, initial encounter for open fracture (principal); S62.634B Displaced fracture of distal phalanx of right ring finger, initial encounter for open fracture; X58.XXXD Exposure to other specified factors, subsequent encounter; E11.9 Type 2 diabetes mellitus without complications
CPT/HCPCS: 73130; 99212

== ENCOUNTER → 2025-07-11 10:51 | Outpatient (BNV) | payer MEDICARE, SELFPAY | PROVIDERS: PCP Nurse Practitioner Family; Visit Provider Radiology Diagnostic Radiology | DX: S62.302D Unspecified fracture of third metacarpal bone, right hand, subsequent encounter for fracture with routine healing (principal); S62.304D Unspecified fracture of fourth metacarpal bone, right hand, subsequent encounter for fracture with routine healing | CPT/HCPCS: 73130 ==

== ENCOUNTER 2025-07-13 08:55 | Outpatient (AMB) | payer MEDICARE, SELFPAY ==
--- NOTE | 2025-07-13 09:11 | MHC.OFFVIS ---
Intake Visit Reasons: OV- Cervical spine Follow up Intake Note: Arnel is a 64 year old male who presents today as a follow up for his Cervical spinal stenosis. At last visit on 12/01/24 we referred him to office and patient was seen on 12/20/24. At today's visit he states that about a week ago he tweaked his lower back playing sports. He states that no pain or discomfort to report in his upper back/neck. No numbness or tingling to report at this time, slight tightness in his neck. He would like to discuss home exercises options to help relieve the back pain. Allergies Penicillins Allergy (Unknown, Verified 07/13/25 09:17) Unknown Medication List - Last Reconciled 07/13/25 by Liz Small MD blood sugar diagnostic (FreeStyle Lite Strips) Test blood sugar once a day blood-glucose meter (FreeStyle Lite Meter kit) As directed cyclobenzaprine 10 mg PO BEDTIME PRN dulaglutide (Trulicity) 1.5 mg (0.5 mL) subcut QWEEK ibuprofen 600 mg PO Q6-8H PRN lancets (FreeStyle Lancets) Test blood sugar once a day losartan 25 mg PO DAILY metformin 1,000 mg PO BID prednisone 5 mg PO DIRECTED trazodone 50 mg PO BEDTIME PRN 30 days HPI Comments Details: Five days ago, Arnel woke up with low back pain. The end of the day it was much more severe. More right-sided. Worse with standing. Described as stabbing. Does not radiate. Denies any buttocks pain, leg pain or groin pain. Denies any numbness or tingling. Denies bladder or bowel changes. Denies any inciting injuries but he was gardening and playing pickleball the week before. [facility] Medical History Degenerative disc disease, lumbar Arthritis COVID-19 vaccine series completed GERD (gastroesophageal reflux disease) Diabetes Kidney stones Dyslipidemia Constipation Dupuytren contracture Surgical History (Reviewed 07/11/25 @ 10:42 by Cassandra Light [facility]) History of lithotripsy History of facial surgery H/O colonoscopy Family History Father HTN (hypertension) CVD (cardiovascular disease) Mother HTN (hypertension) Diabetes mellitus Paternal Grandmother Diabetes mellitus Brother No problems noted. Sister No problems noted. Sister No problems noted. Son No problems noted. Daughter No problems noted. Daughter No problems noted. Social History (Reviewed 07/11/25 @ 10:43 by Cassandra Light [facility]) Housing: House Are you a primary hiv/aids care nurse to a significant other at home: No Do you presently have visiting nurse or other home services: No Patient Tobacco Use Status: Never used Tobacco e-Cigarette/Vaping Use: Never Used Second Hand Smoke Exposure: No Advance Directives Date on File: 12/18/20 service: No Current occupational status: retired Current occupation: right hand Cognitive needs: No Hearing needs: No Vision needs: No Physical Exam Exam Exam: Constitutional: Patient appears to be in no acute distress, well nourished and well developed. Patient was appropriately conversant and oriented. Good historian. MSK: No specific abnormalities found on inspection of the spine and all extremities. At 1st he appeared very uncomfortable, unable to stand due to pain. But eventually with time and walking around, he appeared much less in pain that we are able to finish the rest of the physical exam. Very tight and prominent on right lumbar paraspinals. SI joint nontender. GT nontender. Lumbar ROM was full. Bilateral hip, knee and ankle ROM WNL. No ligamentous laxity or crepitance. No increased effusion. Straight-leg raising test negative. FABERE test positive back pain bilateral. Strength is 5/5 in all muscle groups tested. No increased tone noted. Neurological: MMT 5/5 despite pain. No footdrop. Reflexes brisk and symmetric. Beaulieu?s negative bilaterally. Babinski was down going bilaterally. Clonus was negative. Gait is antalgic without loss of balance. Assessment & Plan Assessment & Plan (1) Acute back pain: Code(s): M54.9 - Dorsalgia, unspecified Category: Medical Qualifiers: Back pain location: low back pain Back pain laterality: right Sciatica presence: without sciatica Qualified Code(s): M54.50 - Low back pain, unspecified (2) Lumbar strain: Code(s): S39.012A - Strain of muscle, fascia and tendon of lower back, initial encounter Category: Medical Qualifiers: Encounter type: initial encounter Qualified Code(s): S39.012A - Strain of muscle, fascia and tendon of lower back, initial encounter Plan Suspect acute lumbar strain. No neurologic deficits on exam. Lumbar and pelvic x-rays done to rule out fractures. Reviewed films myself, do not see any acute fracture. Although question size of L4 vertebral body compared to other levels. Disc spaces were intact. No pelvic fracture hip fracture that I could see. Await official radiology report. We will start patient on anti-inflammatory. We decided on starting oral prednisone dose, short burst. Discussed side effects and precautions. We will also give him Flexeril 10 mg q.h.s. to help him sleep and be more comfortable at night. We will evaluate in 2 weeks. Call sooner if needed. Assessment and plan discussed with patient, and patient was agreeable. All questions were answered thoroughly. Liz Small MD, ESTHER Board Certified, [place] [employer] and [employer] (ABPMR) Board Certified, [place] [employer] (ABEM) Orders: Orders XR lumbar spine 2-3V Today M54.9 - Dorsalgia, unspecified XR pelvis min 3V Today M54.9 - Dorsalgia, unspecified XR hip LT min 2V Today M16.12 - Unilateral primary osteoarthritis, left hip, M54.9 - Dorsalgia, unspecified Medications: New prednisone see taper instructions; 40 mg Daily for three days, 30 mg daily for three days, 20 mg daily for three days, 10 mg daily for three days 5 mg PO DIRECTED 60 tabs 0RF cyclobenzaprine 10 mg PO BEDTIME PRN 30 tabs 0RF muscle spasm Coding Level of Care Code Est Pt Level 4 (59756) Diagnoses Acute right-sided low back pain without sciatica M54.50 Back pain location: low back pain Back pain laterality: right Sciatica presence: without sciatica Strain of lumbar region, initial encounter S39.012A Encounter type: initial encounter
== END 2025-07-13 10:27 | disposition home or self-care (01) ==
LOC: HO.HOS 08:56
PROVIDERS: PCP Nurse Practitioner Family; Visit Provider Physical Medicine & Rehabilitation
DX: M54.50 Low back pain, unspecified (principal); S39.012A Strain of muscle, fascia and tendon of lower back, initial encounter
CPT/HCPCS: 99214

== ENCOUNTER 2025-07-13 08:55 | Outpatient (REF) | payer MEDICARE, SELFPAY ==
--- NOTE | ~2025-07-13 | XR_ITS ---
EXAMINATION: XR LUMBOSACRAL SPINE CLINICAL INFORMATION: M54.9 - Dorsalgia, unspecified COMPARISON: None available. TECHNIQUE: Three views of the lumbosacral spine. FINDINGS: There are 5 nonrib-bearing lumbar segments. There is 5 degrees convex left curvature of the lumbar spine. There is left lateral listhesis at L3-4. Disc spaces are preserved. Vertebral body height is preserved. Minimal endplate osteophytes are visible in the lower thoracic spine. XR/XR lumbar spine 2-3V IMPRESSION: Minimal degenerative change. Electronically signed by: Ajay Grimm MD 07/13/2025 09:59 AM EDT
--- NOTE | ~2025-07-13 | XR_ITS ---
EXAMINATION: XR HIP, LEFT CLINICAL INFORMATION: M16.12 - Unilateral primary osteoarthritis, left hip COMPARISON: None available. TECHNIQUE: AP and frog-leg views of the left hip. FINDINGS: Left hip joint space is preserved. There are small marginal osteophytes involving femoral head and acetabular roof. There is minimal sclerosis and small osteophyte involving the left SI joint. Nonspecific minimal cystic changes present in the neck of the femur. XR/XR hip LT min 2V IMPRESSION: Mild evidence of osteoarthritis involving the left hip and left SI joint. Electronically signed by: Ajay Grimm MD 07/13/2025 09:57 AM EDT
--- NOTE | ~2025-07-13 | XR_ITS ---
EXAMINATION: XR PELVIS CLINICAL INFORMATION: M54.9 - Dorsalgia, unspecified COMPARISON: None available. TECHNIQUE: AP view of the pelvis. FINDINGS: Joint spaces are preserved. Minimal roof osteophyte is present involving left acetabulum. No fractures are evident. SI joints are symmetrical and unremarkable. XR/XR pelvis min 3V IMPRESSION: Minute left acetabular roof osteophyte. Electronically signed by: Ajay Grimm MD 07/13/2025 10:00 AM EDT
== END 2025-07-13 08:56 | disposition home or self-care (01) ==
LOC: HO.HOSX 08:55
PROVIDERS: PCP Nurse Practitioner Family; Visit Provider Physical Medicine & Rehabilitation
DX: S39.012A Strain of muscle, fascia and tendon of lower back, initial encounter (principal); M16.12 Unilateral primary osteoarthritis, left hip; X50.9XXA Other and unspecified overexertion or strenuous movements or postures, initial encounter
CPT/HCPCS: 72100; 72190; 73502; 99212

== ENCOUNTER → 2025-07-13 09:37 | Outpatient (BNV) | payer MEDICARE, SELFPAY | PROVIDERS: PCP Nurse Practitioner Family; Visit Provider Radiology Diagnostic Radiology | DX: M25.752 Osteophyte, left hip (principal); M54.50 Low back pain, unspecified; M16.12 Unilateral primary osteoarthritis, left hip | CPT/HCPCS: 72100; 72190; 73502 ==

== ENCOUNTER 2025-08-03 10:07 | Outpatient (AMB) | payer MEDICARE, SELFPAY ==
--- NOTE | 2025-08-03 10:51 | A.OFFVIS_ITS ---
Vital Signs 08/03/25 10:54 Height 6 ft 2 in Weight 193 lb BMI 24.8 Intake Visit Reasons: O/V acute back pain Intake Note: Arnel is a 65 year old male who presents today as a follow up for his acute right sided lower back pain. At last visit 07/13/25 we discussed for him to start taking a anti-inflammatory. We decided on starting oral prednisone dose, short burst. Discussed side effects and precautions. We will also give him Flexeril 10 mg q.h.s. to help him sleep and be more comfortable at night. At today's visit he states that the medication did help relieve the pain and it helped with his sleep. Patient states that the pain is doing better than last appointment. Allergies Penicillins Allergy (Unknown, Verified 08/03/25 10:55) Unknown Medication List - Last Reconciled 08/03/25 by Liz Smlal MD blood sugar diagnostic (FreeStyle Lite Strips) Test blood sugar once a day blood-glucose meter (FreeStyle Lite Meter kit) As directed cyclobenzaprine 10 mg PO BEDTIME PRN dulaglutide (Trulicity) 1.5 mg (0.5 mL) subcut QWEEK ibuprofen 600 mg PO Q6-8H PRN lancets (FreeStyle Lancets) Test blood sugar once a day losartan 25 mg PO DAILY metformin 1,000 mg PO BID trazodone 50 mg PO BEDTIME PRN 30 days HPI Comments Details: It has been 3 weeks since I last saw Arnel. He is feeling better, now able to get up from seated position faster. He says that, once his up and going, pain is gone. He noticed that pain would come back with prolonged sitting or bending. No radiation down to his legs. No numbness tingling. No weakness. He has been able to play pickle ball again. He finished prednisone course. Not taking Flexeril anymore. Lumbar x-rays showed preserved disc spaces. Mild arthritis in both left hip or SI but his pain is mostly right-sided. [facility] Medical History Degenerative disc disease, lumbar Arthritis COVID-19 vaccine series completed GERD (gastroesophageal reflux disease) Diabetes Kidney stones Dyslipidemia Constipation Dupuytren contracture Surgical History History of lithotripsy History of facial surgery H/O colonoscopy Family History Father HTN (hypertension) CVD (cardiovascular disease) Mother HTN (hypertension) Diabetes mellitus Paternal Grandmother Diabetes mellitus Brother No problems noted. Sister No problems noted. Sister No problems noted. Son No problems noted. Daughter No problems noted. Daughter No problems noted. Social History Housing: House Are you a primary ambulatory care nurse to a significant other at home: No Do you presently have visiting nurse or other home services: No Patient Tobacco Use Status: Never used Tobacco e-Cigarette/Vaping Use: Never Used Second Hand Smoke Exposure: No Advance Directives Date on File: 12/18/20 service: No Current occupational status: retired Current occupation: right hand Cognitive needs: No Hearing needs: No Vision needs: No Physical Exam Exam Exam: Constitutional: Patient appears to be in no acute distress, well nourished and well developed. Patient was appropriately conversant and oriented. Good historian. MSK: No specific abnormalities found on inspection of the spine and all extremities. Much more comfortable today than previously. Still tight and prominent on right lumbar paraspinals. SI joint nontender. GT nontender. Lumbar ROM was full. Strength is 5/5 in all muscle groups tested. No increased tone noted. Neurological: MMT 5/5. No footdrop. Reflexes brisk and symmetric. Babinski was down going bilaterally. Clonus was negative. Gait is antalgic without loss of balance. Vital Signs: BMI result Body Mass Index 24.8 Results Reviewed Results Reviewed: Ordering Physician: Liz Lazo Date of Service: 07/13/25 Procedure(s): XR lumbar spine 2-3V Accession Number(s): [id number] cc: Donis Gomez; Liz Lazo~ Reason for Exam: M54.9 - Dorsalgia, unspecified EXAMINATION: XR LUMBOSACRAL SPINE CLINICAL INFORMATION: M54.9 - Dorsalgia, unspecified COMPARISON: None available. TECHNIQUE: Three views of the lumbosacral spine. FINDINGS: There are 5 nonrib-bearing lumbar segments. There is 5 degrees convex left curvature of the lumbar spine. There is left lateral listhesis at L3-4. Disc spaces are preserved. Vertebral body height is preserved. Minimal endplate osteophytes are visible in the lower thoracic spine. XR/XR lumbar spine 2-3V IMPRESSION: Minimal degenerative change. Ordering Physician: Liz Lazo Date of Service: 07/13/25 Procedure(s): XR pelvis min 3V Accession Number(s): [id number] cc: Donis Gomez MAPPING EDITOR-; Liz Lazo~ Reason for Exam: M54.9 - Dorsalgia, unspecified EXAMINATION: XR PELVIS CLINICAL INFORMATION: M54.9 - Dorsalgia, unspecified COMPARISON: None available. TECHNIQUE: AP view of the pelvis. FINDINGS: Joint spaces are preserved. Minimal roof osteophyte is present involving left acetabulum. No fractures are evident. SI joints are symmetrical and unremarkable. XR/XR pelvis min 3V IMPRESSION: Minute left acetabular roof osteophyte. Assessment & Plan Assessment & Plan (1) Lumbar strain: Code(s): S39.012A - Strain of muscle, fascia and tendon of lower back, initial encounter Category: Medical Qualifiers: Encounter type: initial encounter Qualified Code(s): S39.012A - Strain of muscle, fascia and tendon of lower back, initial encounter Plan On the right direction of getting better from lumbar strain. No neurologic de ficits. No signs of lumbar radiculopathy or myelopathy. We talked about strengthening his core muscles to prevent further re-injury. Assessment and plan discussed with patient, and patient was agreeable. All questions were answered thoroughly. Liz Small MD, ESTHER Board Certified, [place] [employer] and [employer] (ABPMR) Board Certified, [place] [employer] Electro[employer]ostic [employer] (ABEM) Medications: Discontinued prednisone see taper instructions; 40 mg Daily for three days, 30 mg daily for three days, 20 mg daily for three days, 10 mg daily for three days Discontinued Reason: Patient Completed Course 5 mg PO DIRECTED 60 tabs 0RF Coding Level of Care Code Est Pt Level 3 (91589) Diagnoses Strain of lumbar region, initial encounter S39.012A Encounter type: initial encounter
[2025-08-03 10:54] VITALS: BMI 24.8
--- OUTSIDE RECORDS SUMMARY | 2025-08-03 11:00 | XMS_ITS | Patient Health Record ---
Author Organization [facility] Address [address] [place] [address] Care Team Providers Care Lead Mechanic Name Role Phone BRIANDA LEBRON Primary Care Provider Eron Riddle [phone] Allergies Allergen (clinical drug ingredient) Drug/Non Drug [...] Problem Status W/U Status Risk Notes Problem 852439721 Encounter for screening for malignant neoplasm of colon (Z12.11) Active confirmed Problem 438668924 History of adenomatous polyp of colon (Z86.010) Active confirmed Problem Screening for malignant neoplasm of rectum (210549360) Encounter for screening for malignant neoplasm of rectum (Z12.12) Active confirmed Problem 25323827 Preprocedural examination (Z01.818) Active confirmed Problem 606737992 Gastroesophageal reflux disease, esophagitis presence not specified (K21.9) Active confirmed Problem 23268007 Constipation, unspecified constipation type (K59.00) Active confirmed Problem 056216070 Abdominal pain, periumbilic (R10.33) Active confirmed Plan Of Treatment Pending Test Test Name Order Date Pathology 03/24/2021 Future Test Test Name Order Date COLONOSCOPY 02/25/2016 UPPER GI ENDOSCOPY 02/12/2021 COLONOSCOPY 02/12/2021 Insurance Providers Payer Name Payer Address Payer Phone Subscriber Number Group Number Insured Name Patient Relationship to Insured Coverage Start Date Coverage End Date [facility] [address] [place], [place] [id number] LENIN MORA Self - patient is the insured Medical (General) History Medical History History ICD Code Colonoscopy 03-12-2011--1 cm tubular adenoma removed, mild sigmoid diverticulosis History of elevated LFT's due to mono--r esolved Hypertension Denies NE,CVA,Lung disease,renal disease Neg. colonoscopy in 06/2016-- hyperplastic polyp, diverticulosis, internal hemorrhoid GERD NIDDM Peyronie's Disease Dupuytrenne's in both hands Kidney stone-s/p ESWL Surgical History Surgery Date(Month/Year) Facial surgery related to an accident Leg surgery Right shoulder
== END 2025-08-03 11:13 | disposition home or self-care (01) ==
LOC: HO.HOS 10:08
PROVIDERS: PCP Nurse Practitioner Family; Visit Provider Physical Medicine & Rehabilitation
DX: S39.012A Strain of muscle, fascia and tendon of lower back, initial encounter (principal)
CPT/HCPCS: 99213

== ENCOUNTER → 2025-08-03 10:07 | Outpatient (BNVA) | payer MEDICARE, SELFPAY | PROVIDERS: PCP Nurse Practitioner Family; Visit Provider Physical Medicine & Rehabilitation | DX: S39.012D Strain of muscle, fascia and tendon of lower back, subsequent encounter (principal) | CPT/HCPCS: 99212 ==

== ENCOUNTER 2025-10-30 12:18 | Outpatient (AMB) | payer MEDICARE, SELFPAY ==
--- NOTE | 2025-10-30 12:24 | A.OFFPC_ITS ---
Vital Signs 10/30/25 12:25 10/30/25 12:51 Height 6 ft 2 in Weight 198 lb BMI 25.4 BP 140/74 H 150/82 H Blood Pressure Location Lt brachial Lt brachial Position Sitting Sitting Respiration 16 Pulse 68 Pulse Source Pulse Oximeter Pulse Oximetry (%) 99 Oxygen Delivery Method Room Air Intake Visit Reasons: PE - see comments Professional Nursing Tutor Required: No Accompanied by: Self / Same As Patient Allergies Penicillins Allergy (Unknown, Verified 08/03/25 10:55) Unknown Medication List - Last Reconciled 10/30/25 [facility] blood sugar diagnostic (FreeStyle Lite Strips) Test blood sugar once a day blood-glucose meter (FreeStyle Lite Meter kit) As directed cyclobenzaprine 10 mg PO BEDTIME PRN dulaglutide (Trulicity) 1.5 mg (0.5 mL) subcut QWEEK ibuprofen 600 mg PO Q6-8H PRN lancets (FreeStyle Lancets) Test blood sugar once a day losartan 25 mg PO DAILY metformin 1,000 mg PO BID trazodone 50 mg PO BEDTIME PRN 30 days Tobacco use date assessed: 10/30/25 Fall risk assessment: No Falls in past year Last assessed Fall Risk: 10/30/25 Dental Screening Dental Screen Date: 10/30/25 Did you have a dental visit in the last 12 months?: Yes Did you have a dental problem in the last 6 months where you did not have access to dental care?: No Was dental information given to patient?: Patient has dentist HPI PE - see comments HPI Details History of Present Illness The patient is a 65 year old male presenting for a physical exam and diabetes follow-up. His diabetes is well-controlled with a recent A1C of 6.2. He reports some neuropathy affecting his toes. He sees a hand surgeon for Dupuytren's contracture, which is currently controlled. He reports his eye exam and colonoscopy are up to date. He denies any current urinary issues. Health Maintenance The patient's eye exam and colonoscopy are up to date. He is due for labs including a PSA and a microalbumin. He declined all vaccinations at this time. Social History Review of Systems - Neurological: Reports neuropathy, most ly in the toes. - Genitourinary: Denies any current urin lisa issues. -denies any cp, sob, n/v, fevers, chills , constipation/diarrhea, blood in stool, SI or HI Physical Exam General: Cooperative, healthy appearing, comfortable, no acute distress and well developed Orientation: Patient oriented x3 Limitations: No limitations Head: Normal to inspection Ears: Hearing grossly normal bilaterally Nose: Normal external nose present Face and sinus: Normal facial exam Eyes: Appearance normal, both eyes and all related structures Neck: Normal visual inspection and Yes full ROM Respiratory: Normal respiratory effort and able to speak in complete sentences. Clear to auscultation bilaterally Cardiovascular: Regular rate and rhythm. Normal S1 and S2 GI: Normal to inspection. Soft to palpation and nontender : Testicles without masses/lesions and no hernias appreciated Skin: No rashes or lesions noted Neuro: Patient oriented x3, some neuropathy mostly in toes, positive sensation with use of monofilament, unable to feel vibration with the tuning fork 128 Extremities: Normal to inspection, hammer toes noted, hands: palmar linear indurated strands noted bilaterally due to Dupuytren's contracture . Results - HbA1c: 6.2 Plan 1. Diabetes Mellitus The patient's diabetes is well-controlled with an A1C of 6.2. Labs for a microalbumin level will be obtained to monitor for diabetic nephropathy. 2. Diabetic Neuropathy The patient has neuropathy in his toes with absent vibratory sensation on exam. We will continue to monitor his symptoms. 3. Dupuytren's Contracture The patient is followed by a hand surgeon for this condition, which is currently controlled. He will continue with his current management plan. 4. Encounter for general adult medical e xamination with abnormal findings Z00.01 5. HTN: will take BP at home and send m e values via the portal. Discussion Notes I discussed with the patient that his diabetes appears well-controlled, as his A1c is an impressive 6.2. We reviewed that his eye exam and colonoscopy are up to date. I informed him he is due for labs, including a PSA and microalbumin. He declined vaccinations. We noted he continues to see a hand surgeon for his controlled Dupuytren's contracture. Patient Instructions - Your diabetes is well controlled, and your recent A1c was an excellent 6.2. - Please complete your lab work, which i ncludes a PSA test to screen for prostate issues and a microalbumin test to check your kidney function. - You are up to date with your eye exams and colon cancer screenings. - Continue following up with your hand s urgeon for your hand condition. - You have declined vaccinations at this visit. [facility] Medical History Degenerative disc disease, lumbar Arthritis COVID-19 vaccine series completed GERD (gastroesophageal reflux disease) Diabetes Kidney stones Dyslipidemia Constipation Dupuytren contracture Surgical History History of lithotripsy History of facial surgery H/O colonoscopy Family History Father HTN (hypertension) CVD (cardiovascular disease) Mother HTN (hypertension) Diabetes mellitus Paternal Grandmother Diabetes mellitus Brother No problems noted. Sister No problems noted. Sister No problems noted. Son No problems noted. Daughter No problems noted. Daughter No problems noted. 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 Cognitive needs: No Hearing needs: No Vision needs: No Questionnaire Thrive Questionnaire Date Thrive assessed: 03/06/25 I am a: Patient What is your living situation today?: I have a steady place to live Within the past 12 months, did the food you bought not last and you didn't have the money to get more?: Never true Within the past 12 months, did you worry whether your food would run out before you got money to buy more?: Never true Do you have trouble paying for medicines?: No Do you have trouble getting transportation to medical appointments?: No Do you have trouble paying your heating and electricity bill?: No Do you have trouble taking care of your child, family member or friend?: No Do you have trouble with day-to-day activities such as bathing, preparing meals, shopping, managing finances, etc.?: No Are you currently unemployed and looking for a job?: No Are you interested in more education?: No Currently or been in a relationship where the following occur: No concerns reported THRIVE Score: 0 DESIREE-7 AMB Questionnaire DESIREE-7 Date DESIREE - 7 assessed: 03/13/25 Source: Developed by Drs. Eron Eldridge, Elly Saldana, Chuy Lockett and colleagues, with an educational gary from [employer]. Physical exam (Primary Care) Vital Signs: Last Vital Signs Pulse 68 10/30/25 12:25 Resp 16 10/30/25 12:25 BP 140/74 H 10/30/25 12:25 Pulse Ox 99 10/30/25 12:25 Oxygen Delivery Method Room Air 10/30/25 12:25 BMI result Body Mass Index 25.4 Tobacco/Smoking Status: Tobacco use Status Tobacco use date assessed 10/30/25 10/30/25 12:26 Patient Tobacco Use Status Never used Tobacco 10/30/25 12:26 e-Cigarette/Vaping Use Never Used 10/30/25 12:26 Thrive Assessment: Date of Thrive Assessment Date Thrive assessed 03/06/25 10/30/25 12:26 Currently or been in a relationship where the following occur: No concerns reported Office Procedures Diabetic Foot Exam G9226 - Diabetic Foot Exam (could not feel vibration from tuning fork, + sensation with use of monofilament, hammer toes, otherwise, intact feet bilat) Results AMB Hemoglobin A1c AMB Hemoglobin A1c 6.2 % Last Edit by Andree Carrion MA on 10/30/25 12:38 Results Reviewed Results Reviewed: Laboratory Last Values Hgb A1c (Clinic) 6.2 % (4.0-6.0) H 10/30/25 12:32 Coding Level of Care Code Est Pt Level 3 (13735) Est Pt Prev Care >65y(81641) Diagnoses Encounter for routine adult physical exam with abnormal findings Z00. HTN (hypertension) I10 Diabetes E11.9 CPT Codes Diabetic Foot Exam - CPT: G9226 - Diabetic Foot Exam ([id number]) Assessment & Plan Assessment & Plan (1) Encounter for routine adult physical exam with abnormal findings: Code(s): Z00.01 - Encounter for general adult medical examination with abnormal findings Category: Medical (2) HTN (hypertension): Code(s): I10 - Essential (primary) hypertension Category: Medical (3) Diabetes: Code(s): E11.9 - Type 2 diabetes mellitus without complications Category: Medical Plan . Orders: Orders Complete Blood Count Auto Diff Today E11.9 - Type 2 diabetes mellitus without complications TSH reflex Free T4 Today E11.9 - Type 2 diabetes mellitus without complications UA CC w/rflx Micro + Cult Today E11.9 - Type 2 diabetes mellitus without complications Lipid Panel Today E11.9 - Type 2 diabetes mellitus without complications Microalbumin, Random (w Creat) Today E11.9 - Type 2 diabetes mellitus without complications Prostate Specific Antigen Scr Today Z12.5 - Encounter for screening for malignant neoplasm of prostate AMB Hemoglobin A1c Today E11.9 - Type 2 diabetes mellitus without complications Comprehensive Welches. Panel Fast Today E11.9 - Type 2 diabetes mellitus without complications AMB EKG-In Office Today Z00.01 - Encounter for general adult medical examination with abnormal findings
[2025-10-30 12:25] VITALS: BP 140/74; PULSE 68; RESP 16; O2SAT 99; BMI 25.4
[2025-10-30 12:51] VITALS: BP 150/82
--- OUTSIDE RECORDS SUMMARY | 2025-10-30 16:17 | XMS_ITS | Patient Health Record ---
Author Organization [facility] Address [address] [place] [address] Care Team Providers Care Second Rigger Name Role Phone BRIANDA LEBRON Primary Care Provider Eron Riddle [phone] Allergies Allergen (clinical drug ingredient) Drug/Non Drug Allergy documented on EMR Reaction Allergy Type Onset Date Status Penicillin Unknown Drug Allergy Active Reason For Referral No Information Medications Medication SIG (Take, Route, Frequency, Duration) Notes Start Date End Date Status Prevacid 30 MG Capsule Delayed Release 1 capsule Orally Once a day; Duration: 30 day(s) PRN Active Trulicity 0.75 MG/0.5ML Solution Pen-injector as directed Subcutaneous once a week Active metFORMIN HCl 1000 MG Tablet 1 tablet with a meal Orally BID Active Ibuprofen PRN Active Multi Vitamin/Minerals - Tablet as directed Orally once a day Active Losartan Potassium 25 MG Tablet Orally Active Pentoxifylline ER 400 MG Tablet Extended Release Orally Acti ve Sildenafil Citrate 50 MG Tablet Orally Active Multivitamin Active Immunizations Vaccine Route Administration Date Status Comme nts Influenza Unknown 10/18/2019 Refused Influenza Unknown 02/12/2021 Refused Social History Social History Additional Details Category Social Info Options Details Miscellaneous: Marital status: Occupation: 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 Section Notes: Nonsmoker, no significant al cohol use Nonsmoker, no significant al cohol use Nonsmoker, no significant al cohol use Nonsmoker, no significant al cohol use Nonsmoker, no significant al cohol use Problems Problem Type SNOMED Code ICD Code Onset Dates Problem Status W/U Status Risk Notes Problem Screening for malignant neoplasm of colon (158378387) Encounter for screening for malignant neoplasm of colon (Z12.11) Active confirmed Problem History of adenomatous polyp of colon (431451768) History of adenomatous polyp of colon (Z86.010) Active confirmed Problem Screening for malignant neoplasm of rectum (788439746) Encounter for screening for malignant neoplasm of rectum (Z12.12) Active confirmed Problem Preprocedural examination (108849462472991) Preprocedural examination (Z01.818) Active confirmed Problem Gastroesophageal reflux disease (670317375) Gastroesophageal reflux disease, esophagitis presence not specified (K21.9) Active confirmed Problem Constipation (31386515) Constipation, unspecified constipation type (K59.00) Active confirmed Problem Periumbilical pain (237646966) Abdominal pain, periumbilic (R10.33) Active confirmed Plan Of Treatment Pending Test Test Name Order Date Pathology 03/24/2021 Future Test Test Name Order Date COLONOSCOPY 02/25/2016 UPPER GI ENDOSCOPY 02/12/2021 COLONOSCOPY 02/12/2021 Insurance Providers Payer Name Payer Address Payer Phone Subscriber Number Group Number Insured Name Patient Relationship to Insured Coverage Start Date Coverage End Date [facility] [address] [place], [place] [id number] LENIN MORA Self - patient is the [...]
== END 2025-10-30 12:57 | disposition home or self-care (01) ==
LOC: HO.HMCC 12:18
PROVIDERS: PCP Nurse Practitioner Family; Visit Provider Nurse Practitioner Family
DX: Z00.01 Encounter for general adult medical examination with abnormal findings (principal); E11.9 Type 2 diabetes mellitus without complications; I10 Essential (primary) hypertension

== ENCOUNTER → 2025-10-30 12:18 | Outpatient (BNVA) | payer MEDICARE, SELFPAY | PROVIDERS: PCP Nurse Practitioner Family; Visit Provider Nurse Practitioner Family | DX: Z00.01 Encounter for general adult medical examination with abnormal findings (principal); E11.9 Type 2 diabetes mellitus without complications; I10 Essential (primary) hypertension | CPT/HCPCS: 83036; 99397 ==